=== PATIENT | female | born 1940 | race Caucasian/White ===

== ENCOUNTER 2019-08-17 09:13 | Outpatient (CLI) | payer MEDICARE, SELFPAY ==
[2019-08-17 10:09] LABS: Alanine Aminotransferase 37 U/L (4-35); Albumin Level 4.9 g/dL (3.5-5.1); Alkaline Phosphatase 100 U/L (38-126); Aspartate Amino Transferase 54 U/L (14-36); Bilirubin,Total 0.6 mg/dL (0.2-1.3); Blood Urea Nitrogen 17 mg/dL (7-17); Calcium 9.7 mg/dL (8.4-10.2); Carbon Dioxide 29 mmol/L (22-30); Chloride 100 mmol/L (98-107); Cholesterol 158 mg/dL (0-200); Estimated Glomerular Filt Rate > 60; Glucose 141 mg/dL (65-105); HDL Direct 71 mg/dL; Potassium 4.4 mmol/L (3.4-5.0); Sodium 139 mmol/L (137-145); Triglycerides 102 mg/dL (<150)
[2019-08-17 10:19] LABS: LDL Cholesterol Direct 68 mg/dL
[2019-08-17 10:32] LABS: Hemoglobin A1C 6.6 % (<5.7)
[2019-08-17 10:35] LABS: Vitamin D 25 Hydroxy 34.9 ng/mL
[2019-08-17 10:39] LABS: Creatinine Urine 231.5 mg/dL
[2019-08-17 10:44] LABS: Microalbumin Urine Random 46.2 mg/L (0-16.7)
== END 2019-08-17 09:14 | disposition home or self-care (01) ==
PROVIDERS: PCP Internal Medicine; Visit Provider Nurse Practitioner
DX: E11.9 Type 2 diabetes mellitus without complications (principal); E78.2 Mixed hyperlipidemia; E55.9 Vitamin D deficiency, unspecified
CPT/HCPCS: 36415; 80053; 80061; 82043; 82248; 82306; 83036

== ENCOUNTER 2019-08-18 09:49 | Outpatient (CLI) | payer MEDICARE, SELFPAY ==
[2019-08-21 22:23] LABS: Albumin 4.1 g/dL (3.8-4.8); Alpha 1 Globulin 0.3 g/dL (0.2-0.3); Beta 1 Globulin 0.6 g/dL (0.4-0.6); Gamma Globulin 0.9 g/dL (0.8-1.7); Protein, Total 7.4 g/dL (6.1-8.1)
== END 2019-08-18 09:50 | disposition home or self-care (01) ==
PROVIDERS: PCP Internal Medicine; Visit Provider Internal Medicine
DX: E88.09 Other disorders of plasma-protein metabolism, not elsewhere classified (principal)
CPT/HCPCS: 36415; 84155; 84165

== ENCOUNTER 2019-08-24 12:53 | Outpatient (CLI) | payer MEDICARE, SELFPAY ==
--- NOTE | ~2019-08-24 | CT_ITS ---
EXAMINATION: CT abdomen wo con DATE: 08/24/2019 13:13 INDICATION: Ventral hernia TECHNIQUE: Computed tomography (CT) of the abdomen was performed without intravenous contrast. Automa dunia exposure control and iterative reconstruction technique were employed. Exam dose: 406.49 mGy-cm total exam DLP. COMPARISON: 09/29/2016 CT abdomen and pelvis with IV contrast material FINDINGS: There is discoid atelectasis or scarring in the lower lung zones, primarily involving the r ight lower lobe. Normal heart size. No pericardial or pleural effusion. Small sliding hiatal hernia. Status post cholecystectomy. Approximately 6.5 mm right hepatic dome cyst. Approximately 1.7 cm lateral segment left hepatic cyst. Approximately 11 mm caudate process cyst. A few scattered much smaller likely hepatic cysts are pres ent. No bile duct or pancreatic duct dilatation. No pancreatic mass lesion or pancreatic duct dilatation i s evident. Multiple calcified small granulomas. No splenomegaly. Normal morphology of the adrenal glands. No renal mass lesion is evident on this limited noncontrast examination. Abdominal aortic calcification; no evidence of abdominal aortic aneurysm. No intraperitoneal or retro peritoneal mass lesion or adenopathy or ascites. Normal appendix. Diverticulosis of left and right colon. No bowel obstruction or intraperitoneal free air. There is a subtle supraumbilical small fat-containing ventral abdominal hernia near midline, measurin g approximately 6.6 x 14.5 mm. Small fat-containing umbilical hernia. There is levoscoliosis and multilevel degenerative disc disease of the lumbar spine. IMPRESSION: Small midline supraumbilical ventral fat-containing abdominal wall hernia Small fat-containing umbilical hernia Hepatic cysts Status post cholecystectomy Small sliding hiatal hernia Diverticulosis of the colon Reviewed, dictated and finalized at Location [facility]. Reviewed, dictated and finalized at location B.
== END 2019-08-24 12:54 | disposition home or self-care (01) ==
LOC: ANHIMG 12:56
PROVIDERS: PCP Internal Medicine; Visit Provider Internal Medicine
DX: K43.9 Ventral hernia without obstruction or gangrene (principal); K44.9 Diaphragmatic hernia without obstruction or gangrene; Z90.49 Acquired absence of other specified parts of digestive tract; K57.30 Diverticulosis of large intestine without perforation or abscess without bleeding; K76.89 Other specified diseases of liver
CPT/HCPCS: 74150

== ENCOUNTER 2020-01-29 08:33 | Emergency (ER) | payer MEDICARE, SELFPAY ==
--- NOTE | ~2020-01-29 | CT_ITS ---
EXAMINATION: CT abdomen pelvis w con INDICATION: Lower abdominal pain TECHNIQUE: Computed tomographic images of the abdomen and pelvis were obtained after the administrati on of 100 cc of Omnipaque 350 intravenous contrast. The dose-length product (DLP) was 561.21 mGy-cm. Automated exposure control and iterative reconstruction technique were employed. COMPARISON: 08/24/2019, 09/29/2016 FINDINGS: Minimal dependent atelectasis is present in the lung bases. The heart size is normal. There appear to be surgical changes of fundoplication at the gastroesophageal junction. The gallbladder is surgically absent. Cysts of the liver measure up to 1.8 cm in the left hepatic lobe. Punctate calcif ications in an otherwise normal spleen likely represent healed granulomatous disease. The pancreas an d adrenal glands are normal. There is mild right hydronephrosis which appears to be related to a UPJ stricture. There is calcified atherosclerosis of the aorta and many of the other arteries. No patholo gically enlarged abdominal or pelvic lymph nodes are identified. Colonic diverticulosis is present. T here is wall thickening in the sigmoid colon with adjacent edematous stranding of the perisigmoid fat . The appendix is normal. There is no free intraperitoneal gas or evidence of bowel obstruction. Ther e is severe lumbar spondylosis. IMPRESSION: 1. Findings consistent with uncomplicated sigmoid diverticulitis. 2. Mild right hydronephrosis possibly related to UPJ stricture. Reviewed, dictated and finalized at location A.
[2020-01-29 08:38] VITALS: BP 151/81; PULSE 93; RESP 18; TEMP 36.6; O2SAT 96
[2020-01-29 09:09] LABS: Basophils Absolute Auto 0.1 K/mm3 (0.0-0.1); Basophils Percent Auto 0.6 % (0.2-1.2); Eosinophils Absolute Auto 0.2 K/mm3 (0-0.3); Eosinophils Percent Auto 1.6 % (0-4.4); Hematocrit 41.6 % (37.0-47.0); Hemoglobin 13.7 g/dL (12.0-15.0); Immature Granulocyte Absolute 0.04 K/mm3 (0.00-0.031); Immature Granulocyte Percent A 0.3 % (0-0.5); Lymphocytes Percent Auto 22.9 % (18.3-44.2); Mean Corpuscular HGB Conc 32.9 g/dl (32-36); Mean Corpuscular Volume 94.1 fl (80-100); Mean Platelet Volume 9.7 fl (7.4-10.4); Monocytes Percent Auto 7.3 % (2.6-8.5); Neutrophils Absolute Auto 9.4 K/mm3 (1.3-6.7); Neutrophils Percent Auto 67.3 % (45.5-73.1); Platelet Count Result 224 k/mm3 (150-375); Red Blood Count 4.42 M/mm3 (4.2-5.4); Red Cell Distribution Width 13.2 % (11.5-14.5)
--- NOTE | 2020-01-29 09:09 | ED.ABDPAIN ---
HPI - Abdominal Pain General Chief Complaint: Abdominal Pain Stated Complaint: abdominal pain Time Seen by Provider: 01/29/20 08:52 History of Present Illness HPI narrative: LLQ pain for the past 2-3 days. Moderate in severity. Worse after eating. Associated with nausea. Chronic diarrhea. Symptoms are the same as previous episodes of diverticulitis. No fever, CP, SOB. Related Data Allergies Allergy/AdvReac Type Severity Reaction Status Date / Time ADRIEN Inhibitors Allergy Unknown Unknown Verified 01/29/20 09:06 cefuroxime Allergy Unknown Muscle Pain Verified 01/29/20 09:06 levofloxacin Allergy Unknown Muscle Pain Verified 01/29/20 09:06 succinylcholine Allergy Unknown Unknown Verified 01/29/20 09:06 Review of Systems Review of Systems: All systems reviewed & are unremarkable except as noted in HPI and below Constitutional: Constitutional: Denies fever(s) Cardiovascular: Cardiovascular: Denies chest pain Respiratory: Respiratory: Denies dyspnea Gastrointestinal: Gastrointestinal: Reports abdominal pain, Reports diarrhea, Reports nausea and Denies vomiting Genitourinary: Genitourinary: Denies hematuria, Reports nocturia and Denies dysuria Neurologic: Denies numbness and Denies weakness [facility] Past Medical History Medical History Essential (primary) hypertension Type 2 diabetes mellitus without complication, without long-term current use of insulin Family History Family History Father Family history of gout Acute myocardial infarction Family history of cardiovascular disease, Onset Age: 74 Mother Family history of osteoporosis Hypertension Cerebrovascular accident Family history of diabetes mellitus in first degree relative Sibling Family history of diabetes mellitus in first degree relative Family history of heart disease in male family member before age 55 Family history of cardiovascular disease, Onset Age: 54 Other Diabetes mellitus Family history of coronary artery disease Family history of malignant neoplasm Social History Social History Smoking status: Never smoker Second hand tobacco smoke exposure: No Alcohol intake: never Gender identity (if verbalized by the patient): Female Exam Const: General: healthy appearing, no acute distress and alert Orientation/consciousness: patient oriented x3 HENMT: Head: normal to inspection Neck: Neck: normal visual inspection and no lymphadenopathy Chest: Chest palpation & inspection: no tenderness Resp: Effort & Inspection: normal respiratory effort Auscultation: clear to auscultation bilaterally, no rales, no rhonchi and no wheezes Cardio: Jugular venous distension: no JVD Rate: regular rate Rhythm: regular rhythm Heart sounds: no murmurs GI: Inspection: non-distended GI Palp: Yes Soft to palpation, Yes Tenderness to palpation present (GI) (LLQ ), No Guarding due to palpation present (GI) and No Rebound tenderness present Skin: General skin exam: normal color Neuro: General: patient oriented x3 and moves all extremities Speech: normal speech Extrem: General: no edema Psych: Appearance: well kempt Affect: normal affect Course Vital Signs Vital signs: Vital Signs Temperature 36.6 C 01/29/20 08:38 Pulse Rate 93 01/29/20 08:38 Respiratory Rate 18 01/29/20 08:38 Blood Pressure 151/81 H 01/29/20 08:38 Pulse Oximetry 96 01/29/20 08:38 Temperature 36.6 C 01/29/20 08:38 Pulse Rate 93 01/29/20 08:38 Respiratory Rate 18 01/29/20 08:38 Blood Pressure 151/81 H 01/29/20 08:38 Pulse Oximetry 96 01/29/20 08:38 MDM - Abdominal Pain MDM Narrative Medical decision making narrative: uncomplicated diveticulitis on CT. Will treat as outpatient with PO antibiotics. Medical Records Attestation: I reviewed the patient's medical records
[2020-01-29 09:12] LABS: Add Urine Microscopic? YES; Appearance Urine Clear (Clear); Bilirubin Urine Negative (Negative); Blood Urine Negative (Negative); Color Urine Straw (Yellow); Glucose Urine UA Negative (Negative); Ketones Urine Negative (Negative); Leukocyte Esterase Ur Trace LEU/UL (Negative); Mucus Urine Rare /lpf; Nitrate Urine Negative (Negative); Protein Urine Negative (Negative); RBC Urine 0-2 /hpf (0-2); Squamous Epithelial Cell Urine Rare /hpf (Few); Urobilinogen Urine Negative mg/dL (<2.0); WBC Urine 0-3 /hpf
[2020-01-29 09:21] LABS: Alanine Aminotransferase 38 U/L (4-35); Albumin Level 4.7 g/dL (3.5-5.1); Alkaline Phosphatase 94 U/L (38-126); Anion Gap 10 mmol/L (8-16); Aspartate Amino Transferase 46 U/L (14-36); Bilirubin,Total 0.7 mg/dL (0.2-1.3); Blood Urea Nitrogen 12 mg/dL (7-17); Calcium 9.6 mg/dL (8.4-10.2); Carbon Dioxide 27 mmol/L (22-30); Chloride 100 mmol/L (98-107); Estimated CRCL calculation 51 ml/min; Estimated Glomerular Filt Rate > 60; Glucose 142 mg/dL (65-105); Lipase 179 U/L (23-300); Potassium 4.1 mmol/L (3.4-5.0); Sodium 137 mmol/L (137-145)
[2020-01-29] MEDS: metroNIDAZOLE 250 MG TABLET 500 MG PO (11:27)
[2020-01-29] MEDS: CIPROFLOXACIN 500 MG TAB PO (11:27)
--- NOTE | 2020-01-29 11:38 | PHAR ---
lEVAQUIN ALLERGY LISTED WITH RXN OF MUSCLE PAIN. CIPRO ORDERED AND ADMINISTERED IN ER BEFORE PHARMACY REVIEW. NOTIFIED JOSE WRIGHT THAT THESE ARE IN SAME CLASS. JOSE WRIGHT STATES PATIENT TAKES CIPRO FOR DIVERTICULITIS WITHOUT ANY COMPLAINTS.
== END 2020-01-29 11:54 | disposition home or self-care (01) ==
PROVIDERS: Emergency Provider Emergency Medicine; PCP Internal Medicine
DX: K57.32 Diverticulitis of large intestine without perforation or abscess without bleeding (principal); I10 Essential (primary) hypertension; E11.9 Type 2 diabetes mellitus without complications; N13.30 Unspecified hydronephrosis
CPT/HCPCS: 36415; 74177; 80053; 81001; 83690; 85025; 99284; A9270; Q9967

== ENCOUNTER → 2020-06-14 12:10 | Outpatient (CLI) | payer MEDICARE, SELFPAY ==
--- NOTE | ~2020-06-14 | DEXA_ITS ---
Bone Density Report Name: Amina Rodriguez Age: 79 Sex: Female Ethnicity: White Date of : 1940 Indication: postmenopausal; screening for osteoporosis; prior fracture; hysterectomy; Referring Provider: LUZ SINGH D.O. Study: Bone densitometry was performed. Exam Date: June 14, 2020 Accession number: [id number] Bone Density: Region BMD T-score Z-score Classification AP Spine (L1, L2) 0.912 -0.6 1.9 Normal Femoral Neck (Left) 0.590 -2.3 0.0 Osteopenia Total Hip (Left) 0.830 -0.9 1.2 Normal Femoral Neck (Right) 0.689 -1.4 0.9 Osteopenia Total Hip (Right) 0.836 -0.9 1.2 Normal Total Hip Mean 0.833 -0.9 1.2 Normal World Health Organization criteria for BMD impression classify patients as: Normal (T-score at or above -1.0), Osteopenia (T-score between -1.0 and -2.5), or Osteoporosis (T-score at or below -2.5). 10-year Fracture Risk(1): Major Osteoporotic Fracture 24% Hip Fracture 7.0% Reported Risk Factors: [place] (), Neck BMD=0.590, BMI=28.6, previous fracture (1) FRAX(R) Version 3.08. Fracture probability calculated for an untreated patient. Fracture probability may be lower if the patient has received treatment. Previous Exams: Region Exam Age BMD T-score BMD Change BMD Change Date g/cm2 vs Baseline vs Previous AP Spine(L1, L2) 06/14/2020 79 0.912 -0.6 0.021 -0.022 04/28/2017 76 0.934 -0.4 0.043* -0.022 04/26/2015 74 0.956 -0.2 0.065* -0.014 12/17/2012 72 0.970 -0.1 0.079* 0.014 12/05/2010 69 0.956 -0.2 0.065* 0.069* 11/16/2008 67 0.887 -0.8 -0.004 -0.004 11/11/2005 64 0.891 -0.8 Total Hip(Left) 06/14/2020 79 0.830 -0.9 -0.076* -0.040* 04/28/2017 76 0.870 -0.6 -0.036* 0.015 04/26/2015 74 0.855 -0.7 -0.051* 0.038* 12/17/2012 72 0.817 -1.0 -0.089* 0.040* 12/05/2010 69 0.777 -1.4 -0.129* 0.030* 11/16/2008 67 0.747 -1.6 -0.159* -0.159* 11/11/2005 64 0.906 -0.3 Total Hip(Right) 06/14/2020 79 0.836 -0.9 -0.027* -0.012 04/28/2017 76 0.848 -0.8 -0.016 0.003 04/26/2015 74 0.845 -0.8 -0.019 0.026 12/17/2012 72 0.819 -1.0 -0.045* 0.030* 12/05/2010 69 0.788 -1.3 -0.076* 0.050* 11/16/2008 67 0.738 -1.7 -0.126* -0.126* 11/11/2005 64 0.864 -0.6
--- NOTE | ~2020-06-14 | MM_ITS ---
EXAMINATION: MM screening [facility] HISTORY: Screening mammogram TECHNIQUE: Craniocaudal and mediolateral oblique 3-D tomosynthesis images were obtained and synthetic 2-D images were generated. CAD analysis was submitted and interpreted. COMPARISON: 04/27/2019, 04/12/2019, 02/05/2018, 02/03/2017 BREAST PARENCHYMAL COMPOSITION: There are scattered areas of fibroglandular density. FINDINGS: Stable bilateral asymmetries in the breasts are considered benign given the lack of interva l change. There is no evidence of suspicious mass, calcification, or architectural distortion to sugg est malignancy in either breast. There has been no suspicious interval change. IMPRESSION: 1. No mammographic evidence of malignancy. 2. Recommend routine screening mammography in one year. BI-RADS Category 2: Benign finding(s). Reviewed, dictated and finalized at location A. NICAL PLANNER
== END ==
PROVIDERS: PCP Internal Medicine; Visit Provider Internal Medicine
DX: Z12.31 Encounter for screening mammogram for malignant neoplasm of breast (principal); M81.0 Age-related osteoporosis without current pathological fracture; M85.852 Other specified disorders of bone density and structure, left thigh; M85.851 Other specified disorders of bone density and structure, right thigh
CPT/HCPCS: 77063; 77067; 77080

== ENCOUNTER → 2020-10-02 12:12 | Outpatient (CLI) | payer MEDICARE, SELFPAY ==
--- NOTE | ~2020-10-02 | XR_ITS ---
XR hip RT min 2V 10/02/2020 12:39 Indication: Right hip pain Procedure: 2 views right hip Comparison: No prior studies for comparison. Findings: No fracture, subluxation or dislocation. No significant joint space narrowing. Normal property insurance claims examiner alization. No focal soft tissue abnormality. Impression: 1: No significant bone or joint abnormality. Reviewed, dictated and finalized at location B. Impression: 1: No significant bone or joint abnormality.
--- NOTE | ~2020-10-02 | XR_ITS ---
EXAMINATION: XR lumbar spine 2-3V, XR sacrum coccyx min 2V DATE: 10/02/2020 12:38 INDICATION: Low back pain TECHNIQUE: 1. Anteroposterior and lateral views of the lumbar spine, and cone-down lateral view of the lumbosacr al junction were obtained. 2. Anteroposterior, angled anteroposterior and lateral views of the sacrum and coccyx were obtained. COMPARISON: CT dated 09/29/2016 FINDINGS: 22 degree lumbar levoscoliosis measured between L1 and L4. Lumbar vertebral body heights are normal. Severe disc height loss with right side predominance at L3-L4 and L4-L5 and with left side predominan ce at L5-S1. Moderate disc height loss at T12-L1 through L2-L3. Multilevel moderate to severe lumbar facet osteoarthritis. Mild bilateral sacroiliac osteoarthritis. Sacral arches are intact. No evident fractures. Cholecystectomy clips in right upper quadrant. Multiple splenic calcification consistent w ith old granulomatous disease. IMPRESSION: 1. 22 degrees lumbar levoscoliosis with moderate upper and severe mid to lower lumbar spondylosis. 2. Mild bilateral sacroiliac osteoarthritis. Reviewed, dictated and finalized at location A. IMPRESSION: 1. 22 degrees lumbar levoscoliosis with moderate upper and severe mid to lower lumbar spondylosis. 2. Mild bilateral sacroiliac osteoarthritis.
--- NOTE | ~2020-10-02 | XR_ITS ---
XR shoulder RT min 2V 10/02/2020 12:38 Indication: Right shoulder pain Procedure: 4 views right shoulder Comparison: No prior studies for comparison. Findings: No acute fracture, subluxation or dislocation. No significant soft tissue abnormality. No r adiopaque foreign bodies. There is normal mineralization. No significant joint space narrowing. Mild degenerative changes of the acromioclavicular and glenohumeral joint. Impression: 1: Mild polyarticular osteoarthritis. Reviewed, dictated and finalized at location B. Impression: 1: Mild polyarticular osteoarthritis.
== END ==
PROVIDERS: PCP Internal Medicine; Visit Provider Internal Medicine
DX: M41.9 Scoliosis, unspecified (principal); M47.898 Other spondylosis, sacral and sacrococcygeal region; M19.011 Primary osteoarthritis, right shoulder; M25.551 Pain in right hip
CPT/HCPCS: 72100; 72220; 73030; 73502

== ENCOUNTER 2021-02-20 07:36 | Outpatient (CLI) | payer MEDICARE, SELFPAY ==
[2021-02-20 08:24] LABS: Alanine Aminotransferase 26 U/L (4-35); Albumin Level 4.5 g/dL (3.5-5.1); Alkaline Phosphatase 83 U/L (38-126); Anion Gap 10 mmol/L (8-16); Aspartate Amino Transferase 40 U/L (14-36); Bilirubin,Total 0.4 mg/dL (0.2-1.3); Blood Urea Nitrogen 17 mg/dL (7-17); Calcium 9.8 mg/dL (8.4-10.2); Carbon Dioxide 29 mmol/L (22-30); Chloride 99 mmol/L (98-107); Cholesterol 146 mg/dL (0-200); Estimated Glomerular Filt Rate 60; Glucose 136 mg/dL (65-110); HDL Direct 69 mg/dL; Potassium 4.2 mmol/L (3.4-5.0); Sodium 138 mmol/L (137-145); Triglycerides 99 mg/dL (<150)
[2021-02-20 08:29] LABS: Hemoglobin A1C 6.4 % (<5.7)
[2021-02-20 08:35] LABS: LDL Cholesterol Direct 55 mg/dL
[2021-02-20 08:56] LABS: Creatinine Urine 42.7 mg/dL
[2021-02-20 09:26] LABS: MALB Creatinine Ratio < 14.1 mg/g (0-30); Microalbumin Urine Random < 6.0 mg/L (0-16.7)
== END 2021-02-20 07:37 | disposition home or self-care (01) ==
LOC: ANHLAB 07:41
PROVIDERS: PCP Internal Medicine; Visit Provider Nurse Practitioner
DX: E11.9 Type 2 diabetes mellitus without complications (principal); I10 Essential (primary) hypertension; E78.5 Hyperlipidemia, unspecified
CPT/HCPCS: 36415; 80053; 80061; 82043; 83036

== ENCOUNTER 2021-05-14 10:02 | Outpatient (CLI) | payer MEDICARE, SELFPAY ==
--- NOTE | ~2021-05-14 | XR_ITS ---
EXAMINATION: XR sacrum coccyx min 2V DATE: 05/14/2021 10:22 INDICATION: Tailbone pain post fall TECHNIQUE: AP, angled AP and lateral views of the sacrum and coccyx were obtained. COMPARISON: 10/02/2020 FINDINGS: Partially visualized lumbar levorotoscoliosis with severe spondylosis. Normal alignment and joint spa ce at the bilateral hips. Mild bilateral sacroiliac osteoarthritis. Sacral arches are intact. A few p hleboliths in the pelvis. Heterotopic ossifications at the right buttocks. IMPRESSION: 1. Mild bilateral sacroiliac osteoarthritis. No acute osseous abnormality. 2. Mild lumbar levoscoliosis with severe spondylosis. Reviewed, dictated and finalized at location B. ENTRY TECHNICIAN
== END 2021-05-14 10:03 | disposition home or self-care (01) ==
PROVIDERS: PCP Internal Medicine; Visit Provider Internal Medicine
DX: M53.3 Sacrococcygeal disorders, not elsewhere classified (principal); M47.896 Other spondylosis, lumbar region
CPT/HCPCS: 72220

== ENCOUNTER 2021-06-29 10:42 | Outpatient (CLI) | payer MEDICARE, SELFPAY ==
--- NOTE | ~2021-06-29 | MR_ITS ---
EXAMINATION: MR pelvis wo con DATE: 06/29/2021 11:38 INDICATION: Nodule with left buttock pain post fall 6 weeks prior TECHNIQUE: Magnetic resonance imaging (MRI) of the pelvis was performed without intravenous contrast. Sequences included axial, sagittal and coronal T1-weighted FSE, axial and coronal T2-weighted FS FSE and sagittal PD-weighted FS FSE. COMPARISON: Sacrum and coccyx radiograph dated 05/14/2021 FINDINGS: There are bands of marrow edema surrounding a linear low signal intensity nondisplaced fracture lines extending across the submitted multilevel of S4 and vertically along the left sacral ala between the neural foramina and the left sacroiliac joint. Additional small amount of marrow edema along an inco mplete low signal intensity fracture line at the anteroinferior aspect of the right sacral ala. Other lowe normal marrow signal. Lumbar levoscoliosis with severe spondylosis. Bilateral hip joint spaces a re unremarkable with no joint effusions. Bladder is unremarkable. Sigmoid diverticulosis without samia cent inflammatory change to suggest diverticulitis. No pathologically enlarged pelvic or inguinal lym phadenopathy. IMPRESSION: 1. Nondisplaced sacral fractures extending horizontally at the level of S4, vertically at the left sa cral ala and partially at the anteroinferior right sacral ala. 2. Lumbar levoscoliosis with severe spondylosis. Reviewed, dictated and finalized at location A. OR TECHNICAL SUPPORT ENGINEER IMPRESSION: 1. Nondisplaced sacral fractures extending horizontally at the level of S4, thuy tically at the left sacral ala and partially at the anteroinferior right sacral ala. 2. Lumbar levoscoliosis with severe spondylosis.
== END 2021-06-29 10:43 | disposition home or self-care (01) ==
LOC: ANHIMG 10:44
PROVIDERS: PCP Internal Medicine; Visit Provider Internal Medicine
DX: M79.18 Myalgia, other site (principal); M47.896 Other spondylosis, lumbar region
CPT/HCPCS: 72195

== ENCOUNTER 2021-08-28 07:55 | Outpatient (CLI) | payer MEDICARE, SELFPAY ==
[2021-08-28 08:28] LABS: Alanine Aminotransferase 28 U/L (4-35); Albumin Level 4.5 g/dL (3.5-5.1); Alkaline Phosphatase 95 U/L (38-126); Anion Gap 6 mmol/L (8-16); Aspartate Amino Transferase 38 U/L (14-36); Bilirubin,Total 0.7 mg/dL (0.2-1.3); Blood Urea Nitrogen 16 mg/dL (7-17); Calcium 9.2 mg/dL (8.4-10.2); Carbon Dioxide 31 mmol/L (22-30); Chloride 102 mmol/L (98-107); Cholesterol 158 mg/dL (0-200); Estimated Glomerular Filt Rate 60; Glucose 142 mg/dL (65-110); HDL Direct 65 mg/dL; Potassium 4.3 mmol/L (3.4-5.0); Sodium 139 mmol/L (137-145); Triglycerides 93 mg/dL (<150)
[2021-08-28 08:33] LABS: Hemoglobin A1C 6.1 % (<5.7)
[2021-08-28 08:39] LABS: LDL Cholesterol Direct 58 mg/dL
[2021-08-28 09:18] LABS: Vitamin D 25 Hydroxy 38.7 ng/mL
== END 2021-08-28 07:56 | disposition home or self-care (01) ==
PROVIDERS: PCP Internal Medicine; Visit Provider Nurse Practitioner
DX: E78.5 Hyperlipidemia, unspecified (principal); E11.9 Type 2 diabetes mellitus without complications; E55.9 Vitamin D deficiency, unspecified
CPT/HCPCS: 36415; 80053; 80061; 82306; 83036

== ENCOUNTER → 2021-10-16 12:16 | Outpatient (CLI) | payer MEDICARE, SELFPAY ==
--- NOTE | ~2021-10-16 | MM_ITS ---
EXAMINATION: MM screening [facility] HISTORY: Screening TECHNIQUE: Craniocaudal and mediolateral oblique 3-D tomosynthesis images were obtained and synthetic 2-D images were generated. CAD analysis was submitted and interpreted. COMPARISON: Comparison to multiple prior studies sequentially, with oldest reviewed study dated 01/31. BREAST PARENCHYMAL COMPOSITION: Breast composed of scattered areas of fibroglandular density FINDINGS: There is no evidence of suspicious mass, calcification, or architectural distortion to sugg est malignancy in either breast. There has been no suspicious interval change. IMPRESSION: 1. No mammographic evidence of malignancy. 2. Recommend routine screening mammography in one year. BI-RADS Category 1: Negative Reviewed, dictated and finalized at location A.
== END ==
PROVIDERS: PCP Internal Medicine; Visit Provider Internal Medicine
DX: Z12.31 Encounter for screening mammogram for malignant neoplasm of breast (principal)
CPT/HCPCS: 77063; 77067

== ENCOUNTER 2022-03-06 08:11 | Outpatient (CLI) | payer MEDICARE, SELFPAY ==
[2022-03-06 08:59] LABS: Alanine Aminotransferase 36 U/L (6-35); Albumin Level 4.5 g/dL (3.5-5.1); Alkaline Phosphatase 87 U/L (38-126); Anion Gap 12 mmol/L (8-16); Aspartate Amino Transferase 49 U/L (14-36); Bilirubin,Total 0.6 mg/dL (0.2-1.3); Blood Urea Nitrogen 23 mg/dL (7-17); Calcium 9.3 mg/dL (8.4-10.2); Carbon Dioxide 28 mmol/L (22-30); Chloride 99 mmol/L (98-107); Cholesterol 145 mg/dL (0-200); Estimated Glomerular Filt Rate 60; Glucose 146 mg/dL (65-110); HDL Direct 59 mg/dL; Potassium 3.9 mmol/L (3.4-5.0); Sodium 139 mmol/L (137-145); Triglycerides 77 mg/dL (<150)
[2022-03-06 09:10] LABS: LDL Cholesterol Direct 62 mg/dL
[2022-03-06 09:50] LABS: Vitamin D 25 Hydroxy 42.6 ng/mL
[2022-03-06 10:19] LABS: Hemoglobin A1C 6.5 % (<5.7)
== END 2022-03-06 08:12 | disposition home or self-care (01) ==
PROVIDERS: PCP Internal Medicine; Visit Provider Internal Medicine
DX: E78.5 Hyperlipidemia, unspecified (principal); E11.9 Type 2 diabetes mellitus without complications; E55.9 Vitamin D deficiency, unspecified; Z51.81 Encounter for therapeutic drug level monitoring; I10 Essential (primary) hypertension
CPT/HCPCS: 36415; 80053; 80061; 82306; 83036

== ENCOUNTER 2022-09-16 08:49 | Outpatient (CLI) | payer MEDICARE, SELFPAY ==
[2022-09-16 09:53] LABS: Hemoglobin A1C 6.4 % (<5.7)
== END 2022-09-16 08:50 | disposition home or self-care (01) ==
PROVIDERS: PCP Internal Medicine; Visit Provider Nurse Practitioner Family
DX: E11.9 Type 2 diabetes mellitus without complications (principal); I10 Essential (primary) hypertension; E78.2 Mixed hyperlipidemia
CPT/HCPCS: 36415; 83036

== ENCOUNTER 2022-09-18 08:07 | Outpatient (CLI) | payer MEDICARE, SELFPAY ==
[2022-09-18 08:51] LABS: Alanine Aminotransferase 27 U/L (6-35); Albumin Level 4.7 g/dL (3.5-5.1); Alkaline Phosphatase 77 U/L (38-126); Anion Gap 7 mmol/L (8-16); Aspartate Amino Transferase 38 U/L (14-36); Bilirubin,Total 0.7 mg/dL (0.2-1.3); Blood Urea Nitrogen 19 mg/dL (7-17); Calcium 9.4 mg/dL (8.4-10.2); Carbon Dioxide 31 mmol/L (22-30); Chloride 100 mmol/L (98-107); Cholesterol 138 mg/dL (0-200); Estimated Glomerular Filt Rate > 60; Glucose 136 mg/dL (65-110); HDL Direct 67 mg/dL; Potassium 4.4 mmol/L (3.4-5.0); Sodium 138 mmol/L (137-145); Triglycerides 94 mg/dL (<150)
[2022-09-18 09:02] LABS: LDL Cholesterol Direct 53 mg/dL
== END 2022-09-18 08:08 | disposition home or self-care (01) ==
PROVIDERS: PCP Internal Medicine; Visit Provider Nurse Practitioner Family
DX: I10 Essential (primary) hypertension (principal); E78.2 Mixed hyperlipidemia
CPT/HCPCS: 36415; 80053; 80061

== ENCOUNTER → 2022-10-16 10:50 | Outpatient (CLI) | payer MEDICARE, SELFPAY ==
--- NOTE | ~2022-10-16 | DEXA_ITS ---
Bone Density Report Name: BETH HAYS Age: 81 Sex: Female Ethnicity: White Date of : 1940 Indication: monitoring treatment; height loss; prior fracture; hysterectomy; postmenopausal Referring Provider: SORAIDA TOBIN Study: Bone densitometry was performed. Exam Date: October 16, 2022 Accession number: [id number] Bone Density: Region BMD T-score Z-score Classification AP Spine (L1, L2) 0.952 -0.2 2.4 Normal Femoral Neck (Left) 0.610 -2.1 0.3 Osteopenia Total Hip (Left) 0.766 -1.4 0.8 Osteopenia Femoral Neck (Right) 0.700 -1.3 1.1 Osteopenia Total Hip (Right) 0.837 -0.9 1.4 Normal Total Hip Mean 0.802 -1.2 1.1 Osteopenia World Health Organization criteria for BMD impression classify patients as: Normal (T-score at or above -1.0), Osteopenia (T-score between -1.0 and -2.5), or Osteoporosis (T-score at or below -2.5). 10-year Fracture Risk: FRAX not reported because: Treated for osteoporosis Previous Exams: Region Exam Age BMD T-score BMD Change BMD Change Date g/cm2 vs Baseline vs Previous AP Spine(L1, L2) 10/16/2022 81 0.952 -0.2 0.061* 0.040* 06/14/2020 79 0.912 -0.6 0.021 -0.022 04/28/2017 76 0.934 -0.4 0.043* -0.022 04/26/2015 74 0.956 -0.2 0.065* -0.014 12/17/2012 72 0.970 -0.1 0.079* 0.014 12/05/2010 69 0.956 -0.2 0.065* 0.069* 11/16/2008 67 0.887 -0.8 -0.004 -0.004 11/11/2005 64 0.891 -0.8 Total Hip(Left) 10/16/2022 81 0.766 -1.4 -0.140* -0.064* 06/14/2020 79 0.830 -0.9 -0.076* -0.040* 04/28/2017 76 0.870 -0.6 -0.036* 0.015 04/26/2015 74 0.855 -0.7 -0.051* 0.038* 12/17/2012 72 0.817 -1.0 -0.089* 0.040* 12/05/2010 69 0.777 -1.4 -0.129* 0.030* 11/16/2008 67 0.747 -1.6 -0.159* -0.159* 11/11/2005 64 0.906 -0.3 Total Hip(Right) 10/16/2022 81 0.837 -0.9 -0.027 0.001 06/14/2020 79 0.836 -0.9 -0.027* -0.012 04/28/2017 76 0.848 -0.8 -0.016 0.003 04/26/2015 74 0.845 -0.8 -0.019 0.026 12/17/2012 72 0.819 -1.0 -0.045* 0.030* 12/05/2010 69 0.788 -1.3 -0.076* 0.050* 11/16/2008 67 0.738 -1.7 -0.126* -0.126* 11/11/2005 64 0.864 -0.6 *Denotes significance at 95% confidence level, LSC for AP Spi
== END ==
PROVIDERS: PCP Nurse Practitioner Family; Visit Provider Nurse Practitioner Family
DX: M81.0 Age-related osteoporosis without current pathological fracture (principal); M85.852 Other specified disorders of bone density and structure, left thigh; M85.851 Other specified disorders of bone density and structure, right thigh
CPT/HCPCS: 77080

== ENCOUNTER 2022-10-25 08:23 | Outpatient (CLI) | payer MEDICARE, SELFPAY ==
--- NOTE | ~2022-10-25 | MR_ITS ---
MRI of the left knee Clinical history: Pain Technique: Coronal proton density and proton density-weighted images, sagittal proton-density and T2 fat-sat images, and axial proton-density fat-saturated images were acquired. Findings: Anterior and posterior cruciate ligaments are intact. Medial collateral ligament and the la teral collateral ligament complex are intact. Popliteus tendon is intact. There is complex, predominantly horizontal tearing of the anterior horn of the lateral meniscus. Ther e is complex tearing of the posterior horn and body of the medial meniscus. There is extensive high-grade chondromalacia the medial compartment, especially towards the medial hesham int line. There is mild to moderate chondromalacia of the lateral compartment towards the lateral bob nt line. Articular cartilage in the patellofemoral compartment is relatively well-preserved. There ar e small to moderate medial and lateral compartment osteophytes. There is minimal patellar spurring. Extensor mechanism is intact. Small joint effusion is present. There are small loose bodies in the po pliteus tendon sheath (coronal image 20). There is also fluid distention of semimembranosus bursa, co nsistent with bursitis. Impression: Complex tearing of the posterior horn and body of medial meniscus. Complex, predominantly horizontal tearing of the anterior horn of the lateral meniscus. Moderate medial compartment degenerative change. Mild degenerative change of the lateral and patellof emoral compartment. Small loose bodies in the popliteus tendon sheath with underlying small joint effusion. Semimembranosus bursitis. Reviewed, dictated and finalized at [facility]. Impression: Complex tearing of the posterior horn and body of medial meniscus. Complex, predominantly horizontal tearing of the anterior horn of the lateral m eniscus. Moderate medial compartment degenerative change. Mild degenerative change of th e lateral and patellofemoral compartment. Small loose bodies in the popliteus tendon sheath with underlying small joint e ffusion. Semimembranosus bursitis.
== END 2022-10-25 08:24 | disposition home or self-care (01) ==
PROVIDERS: PCP Family Medicine; Visit Provider Nurse Practitioner Family
DX: S83.232A Complex tear of medial meniscus, current injury, left knee, initial encounter (principal); X58.XXXA Exposure to other specified factors, initial encounter; S83.272A Complex tear of lateral meniscus, current injury, left knee, initial encounter; M23.42 Loose body in knee, left knee
CPT/HCPCS: 73721

== ENCOUNTER → 2022-12-30 12:05 | Outpatient (CLI) | payer MEDICARE, SELFPAY ==
--- NOTE | ~2022-12-30 | MM_ITS ---
EXAMINATION: MM screening [facility] [place] HISTORY: Screening mammogram TECHNIQUE: Craniocaudal and mediolateral oblique 3-D tomosynthesis images were obtained and synthetic 2-D images were generated. CAD analysis was submitted and interpreted. COMPARISON: 10/16/2021, 06/14/2020, 04/27/2019, 04/12/2019 BREAST PARENCHYMAL COMPOSITION: There are scattered areas of fibroglandular density. FINDINGS: No suspicious mass, calcification, or architectural distortion are identified in either garrick ast to suggest malignancy. There has been no suspicious interval change. IMPRESSION: 1. No mammographic evidence of malignancy. 2. Recommend routine screening mammography while the patient remains in good health. BI-RADS Category 1: Negative Reviewed, dictated and finalized at location A. IMPRESSION: 1. No mammographic evidence of malignancy. 2. Recommend routine screening mammography while the patient remains in good he alth. BI-RADS Category 1: Negative
== END ==
PROVIDERS: PCP Family Medicine; Visit Provider Family Medicine
DX: Z12.31 Encounter for screening mammogram for malignant neoplasm of breast (principal)
CPT/HCPCS: 77063; 77067

== ENCOUNTER 2023-03-20 08:51 | Outpatient (CLI) | payer MEDICARE, SELFPAY ==
--- NOTE | 2023-03-20 09:37 | ECHO_ITS ---
Patient Info Name: Amina Rodriguez Age: 82 years : 1940 Gender: Female Ht: 62 in Wt: 148 lbs BSA: 1.73 m2 BP: 150 / 98 mmHg Technical Quality: Good Exam Date: 03/20/2023 9:40 AM Exam Location: [facility] Patient Status: Outpatient Admit Date: 03/20/2023 Staff Ordering Physician: Mauricio Smith DO Online Trader: Rosa Palacios RDCS Attending Provider: Mauricio Smith DO Referring Physician: Vera Pichardo APRN; Exam Type: CA echo doppler color flow Study Info Indications I34.1 - Nonrheumatic mitral (valve) prolapse Complete two-dimensional, color flow and Doppler transthoracic echocardiogram is performed. Summary 1. Complete two-dimensional, color flow and Doppler transthoracic echocardiogram is performed. 2. Left ventricular chamber dimension is normal. 3. Left ventricular systolic function is normal, estimated at 60-65%. 4. The left ventricular diastolic function is grade I diastolic dysfunction. 5. E/e' 9 is minimally elevated. 6. Left atrial chamber dimension is mildly enlarged. 7. There is moderate aortic valve sclerosis. 8. There is mild aortic valve stenosis with a peak velocity of 144 cm/s, mean gradient of 5 mmHg, and aortic valve area of 1.9 cm2. 9. There is trace aortic valve regurgitation. 10. The mitral valve has moderately calcified leaflets and moderately calcified annulus. 11. There is trace mitral valve regurgitation. 12. There is trace tricuspid valve regurgitation. 13. No pulmonary hypertension, estimated pulmonary arterial systolic pressure is 30 mmHg. Left Ventricle E/e' 9 is minimally elevated. Left ventricular chamber dimension is normal. Left ventricular systolic function is normal, estimated at 60-65%. The left ventricular diastolic function is grade I diastolic dysfunction. Right Ventricle Right ventricular systolic function is normal and with normal TAPSE 2.5 cm. Right ventricular chamber dimension is normal. Left Atria Left atrial chamber dimension is mildly enlarged. Right Atria Right atrial chamber dimension is normal. Aortic Valve The aortic valve is trileaflet. There is moderate aortic valve sclerosis. There is mild aortic valve stenosis with a peak velocity of 144 cm/s, mean gradient of 5 mmHg, and aortic valve area of 1.9 cm2. There is trace aortic valve regurgitation. Pulmonic Valve There is no pulmonic regurgitation. Mitral Valve The mitral valve has moderately calcified leaflets and moderately calcified annulus. There is no mitral valve stenosis. There is trace mitral valve regurgitation. Tricuspid Valve There is trace tricuspid valve regurgitation. No pulmonary hypertension, estimated pulmonary arterial systolic pressure is 30 mmHg. Pericardium/Pleural There is no pericardial effusion. Inferior Vena Cava Normal inferior vena cava with >50% collapse upon inspiration consistent with normal right atrial pressure, 5 mmHg. Aorta The aortic root size at the sinus of Valsalva is normal. Left Ventricular Outflow Tract Name Value Normal LVOT 2D LVOT Diameter 1.8 cm LVOT Doppler LVOT Peak Gradient 7 mmHg LVOT Mean Gradient 3 mmHg LVOT VTI 23 cm L
[2023-03-20 09:47] LABS: Appearance Urine Turbid (Clear); Bacteria Urine None Seen /hpf; Bilirubin Urine Negative (Negative); Blood Urine Negative (Negative); Color Urine Yellow (Yellow); Glucose Urine UA Negative (Negative); Ketones Urine Negative (Negative); Leukocyte Esterase Ur 2+ LEU/UL (NEGATIVE); Nitrate Urine Negative (Negative); Non Pathogenic Casts 0-2; Protein Urine Negative (Negative); RBC Urine 0-2 /hpf (0-2); Specific Grav Ur 1.018 (1.001-1.035); Squamous Epithelial Cell Urine None seen /hpf (Few); Urobilinogen Urine 0.2 mg/dL (<2.0); pH Urine 6.5 (5.0-9.0)
[2023-03-20 10:06] LABS: Alanine Aminotransferase 29 U/L (6-35); Albumin Level 4.9 g/dL (3.5-5.1); Alkaline Phosphatase 85 U/L (38-126); Anion Gap 10 mmol/L (8-16); Aspartate Amino Transferase 45 U/L (14-36); Bilirubin,Total 0.8 mg/dL (0.2-1.3); Blood Urea Nitrogen 21 mg/dL (7-17); Calcium 10.2 mg/dL (8.4-10.2); Carbon Dioxide 29 mmol/L (22-30); Chloride 98 mmol/L (98-107); Estimated Glomerular Filt Rate > 60; Glucose 128 mg/dL (65-110); Potassium 3.9 mmol/L (3.4-5.0); Sodium 137 mmol/L (137-145)
[2023-03-20 10:14] LABS: Add Urine Microscopic? YES
[2023-03-20 12:04] LABS: Hemoglobin A1C 6.2 % (<5.7)
== END 2023-03-20 08:52 | disposition home or self-care (01) ==
PROVIDERS: PCP Family Medicine; Referring Provider Nurse Practitioner Family; Visit Provider Internal Medicine Cardiovascular Disease
DX: R53.83 Other fatigue (principal); E11.9 Type 2 diabetes mellitus without complications; I10 Essential (primary) hypertension; N81.10 Cystocele, unspecified
CPT/HCPCS: 36415; 80053; 81001; 83036; 84443; 93306

== ENCOUNTER 2023-03-21 11:56 | Outpatient (CLI) | payer MEDICARE, SELFPAY | END 2023-03-21 11:57 | disposition home or self-care (01) | LOC: ANHLAB 11:58 | PROVIDERS: PCP Family Medicine; Visit Provider Nurse Practitioner | DX: R39.9 Unspecified symptoms and signs involving the genitourinary system (principal) | CPT/HCPCS: 87086 ==

== ENCOUNTER 2023-09-03 09:12 | Outpatient (CLI) | payer MEDICARE, SELFPAY ==
--- NOTE | ~2023-09-03 | XR_ITS ---
EXAMINATION: XR knee LT 3V DATE: 09/03/2023 09:44 INDICATION: Osteoarthritis, left knee. TECHNIQUE: 3 views of left knee including standing views were obtained. COMPARISON: Left knee radiographs 12/11/2022 FINDINGS: Bone alignment is normal. No fracture. There is severe osteoarthritis of medial compartment and mild osteoarthritis of lateral and patellofemoral compartments. There is a small knee joint effu miguel. IMPRESSION: 1. Severe left knee osteoarthritis. 2. Small left knee joint effusion. Reviewed, dictated and finalized at location A.
--- NOTE | ~2023-09-03 | XR_ITS ---
EXAM: XR knee RT 3V DATE: 09/03/2023 09:44 HISTORY: M25.561 - Pain in right knee, no inj . COMPARISON: None available. FINDINGS: Decreased mineralization. No fracture or dislocation. No lytic or blastic lesion. Severe m edial joint space narrowing. Moderate tricompartmental osteophytosis. Quadriceps enthesopathy. Modera te volume joint fluid. No erosion or periosteal change. Soft tissues within normal limits. IMPRESSION: Tricompartmental osteoarthritic changes, severe in the medial compartment. Moderate knee joint effusion. Reviewed, dictated and finalized at location K. IMPRESSION: Tricompartmental osteoarthritic changes, severe in the medial karly rtment. Moderate knee joint effusion.
== END 2023-09-03 09:13 | disposition home or self-care (01) ==
LOC: ANHIMG 09:18
PROVIDERS: PCP Family Medicine; Visit Provider Orthopaedic Surgery
DX: M17.0 Bilateral primary osteoarthritis of knee (principal); M25.461 Effusion, right knee; M25.462 Effusion, left knee
CPT/HCPCS: 73562

== ENCOUNTER 2023-10-01 08:10 | Outpatient (CLI) | payer MEDICARE, SELFPAY ==
--- NOTE | ~2023-10-01 | XR_ITS ---
XR abdomen/kub 1V 10/01/2023 09:07 Indication: Constipation Procedure: KUB Comparison: CT dated 01/29/2020 Findings: Bowel gas pattern nonobstructive. Moderate colonic fecal loading there are cholecystectomy clips. There is levoscoliosis with advanced multilevel lumbar spondylosis. There are cholecystectomy clips. There are pelvic phleboliths. Impression: 1: Nonobstructive bowel gas pattern. Reviewed, dictated and finalized at location B. Impression: 1: Nonobstructive bowel gas pattern.
[2023-10-01 09:05] LABS: Hemoglobin A1C 6.2 % (<5.7)
[2023-10-01 09:06] LABS: Alanine Aminotransferase 23 U/L (6-35); Albumin Level 4.8 g/dL (3.5-5.1); Alkaline Phosphatase 86 U/L (38-126); Anion Gap 8 mmol/L (4-12); Aspartate Amino Transferase 33 U/L (14-36); Bilirubin,Total 0.9 mg/dL (0.2-1.3); Blood Urea Nitrogen 16 mg/dL (7-17); Calcium 9.9 mg/dL (8.4-10.2); Carbon Dioxide 28 mmol/L (22-30); Chloride 103 mmol/L (98-107); Cholesterol 144 mg/dL (0-200); Estimated Glomerular Filt Rate > 60; Glucose 137 mg/dL (65-110); HDL Direct 76 mg/dL; Potassium 4.3 mmol/L (3.4-5.0); Sodium 139 mmol/L (137-145); Triglycerides 70 mg/dL (<150)
[2023-10-01 09:22] LABS: LDL Cholesterol Direct 58 mg/dL
[2023-10-01 09:27] LABS: Hematocrit 46.1 % (37.0-47.0); Hemoglobin 14.4 g/dL (12.0-15.0); Mean Corpuscular HGB Conc 31.2 g/dl (32-36); Mean Corpuscular Hemoglobin 30.9 pg (26-34); Mean Corpuscular Volume 98.9 fl (80-100); Mean Platelet Volume 10.2 fl (7.4-10.4); Platelet Count Result 202 k/mm3 (150-375); Red Blood Count 4.66 M/mm3 (4.2-5.4); Red Cell Distribution Width 12.8 % (11.5-14.5); White Blood Count 8.1 K/mm3 (4.5-10.0)
[2023-10-01 09:46] LABS: Iron 134 ug/dL (37-170); Vitamin D 25 Hydroxy 42.8 ng/mL
[2023-10-01 09:55] LABS: Percent Iron Saturation 34 % (20-50)
[2023-10-01 10:06] LABS: Creatinine Urine 179.7 mg/dL
[2023-10-01 10:11] LABS: Microalbumin Urine Random 23.4 mg/L (0-16.7)
== END 2023-10-01 08:11 | disposition home or self-care (01) ==
LOC: ANHLAB 08:16
PROVIDERS: PCP Family Medicine; Visit Provider Family Medicine
DX: E11.9 Type 2 diabetes mellitus without complications (principal); I10 Essential (primary) hypertension; E55.9 Vitamin D deficiency, unspecified; E78.2 Mixed hyperlipidemia; I47.19 Other supraventricular tachycardia; K74.60 Unspecified cirrhosis of liver; K75.81 Nonalcoholic steatohepatitis (NASH); R00.1 Bradycardia, unspecified; G25.81 Restless legs syndrome; K59.00 Constipation, unspecified
CPT/HCPCS: 36415; 74018; 80053; 80061; 82043; 82306; 83036; 83540; 83550; 85027

== ENCOUNTER 2023-11-25 07:11 | Emergency (ER) | payer MEDICARE, SELFPAY ==
--- NOTE | ~2023-11-25 | CT_ITS ---
EXAMINATION: CT cervical spine wo con DATE: 11/25/2023 07:59 INDICATION: Head injury. Neck pain. TECHNIQUE: Computed tomography (CT) of the cervical spine was performed without intravenous contrast. Automated exposure control and iterative reconstruction technique were employed. The dose-length pro duct was 255.96 mGy-cm. COMPARISON: None FINDINGS: There is kyphosis of cervical spine. There is 2 mm retrolisthesis of C4-C6. There is mild c hronic anterior wedging of T1 vertebral body. There is mildly decreased disc height at C3-C4 and steve rely decreased disc height from C5-C6 through C7-T1. The following disc levels are specifically discu ssed: C2-C3: There is no uncovertebral joint osteoarthritis. There is mild right and severe left facet join t osteoarthritis. There is no neural foraminal stenosis. There is no central canal stenosis. C3-C4: There is mild right and moderate left uncovertebral joint osteoarthritis. There is mild right and severe left facet joint osteoarthritis. There is mild left neural foraminal stenosis. There is mi ld central canal stenosis. C4-C5: There is moderate right and mild left uncovertebral joint osteoarthritis. There is severe bila teral facet joint osteoarthritis. There is mild right neural foraminal stenosis. There is mild centra l canal stenosis. C5-C6: There is severe bilateral uncovertebral joint osteoarthritis. There is severe bilateral facet joint osteoarthritis. There is mild bilateral neural foraminal stenosis. There is mild central canal stenosis. C6-C7: There is severe bilateral uncovertebral joint osteoarthritis. There is mild bilateral facet hesham int osteoarthritis. There is mild bilateral neural foraminal stenosis. There is mild central canal st enosis. C7-T1: There is severe bilateral uncovertebral joint osteoarthritis. There is severe bilateral facet joint osteoarthritis. There is mild bilateral neural foraminal stenosis. There is mild central canal stenosis. IMPRESSION: 1. No fracture. 2. Severe cervical spondylosis. Reviewed, dictated and finalized at location E.
--- NOTE | ~2023-11-25 | XR_ITS ---
XR knee RT 3V Ordering provider: Power Gallo MD History: . trauma GLF OUTSIDE FRONTAL RT KNEE HEMATOMA EDEMA . Comparison: September 03, 2023 FINDINGS: BONES: No acute fracture or dislocation. JOINT SPACES: Narrowing of the medial compartment. Marginal osteophytes are also noted. SOFT TISSUES: Normal. IMPRESSION: No acute osseous abnormality right knee. Reviewed, dictated and finalized at location A.
--- NOTE | ~2023-11-25 | CT_ITS ---
EXAMINATION: CT brain wo con DATE: 11/25/2023 07:58 INDICATION: Head injury. TECHNIQUE: Computed tomography (CT) of the head was performed without intravenous contrast. The mA wa s adjusted according to patient size. Iterative reconstruction technique was employed. The dose-lengt h product was 605.33 mGy-cm. COMPARISON: None FINDINGS: There are scattered areas of low attenuation in the cerebral white matter, which is within normal limits for the patient's age. There is no intracranial hemorrhage, acute infarction, or abnor mal intracranial mass lesion. The ventricles are normal in size. There is mild mucosal thickening in the paranasal sinuses. The mastoid air cells are normal. There are likely changes of ocular lens repl acement surgeries. IMPRESSION: 1. Normal aging brain. Reviewed, dictated and finalized at location E. IMPRESSION: 1. Normal aging brain.
[2023-11-25 07:15] VITALS: BP 156/85; PULSE 81; RESP 15; TEMP 36.6; O2SAT 96
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
[2023-11-25 08:40] VITALS: BP 139/84; PULSE 58; RESP 16; O2SAT 97
== END 2023-11-25 08:42 | disposition home or self-care (01) ==
PROVIDERS: Emergency Provider Emergency Medicine; PCP Family Medicine
DX: S09.90XA Unspecified injury of head, initial encounter (principal); S80.01XA Contusion of right knee, initial encounter; I10 Essential (primary) hypertension; E11.9 Type 2 diabetes mellitus without complications; Z90.710 Acquired absence of both cervix and uterus; Z90.49 Acquired absence of other specified parts of digestive tract; Z79.82 Long term (current) use of aspirin; M47.812 Spondylosis without myelopathy or radiculopathy, cervical region; V48.4XXA Person boarding or alighting a car injured in noncollision transport accident, initial encounter
CPT/HCPCS: 70450; 72125; 73562; 99284

== ENCOUNTER 2023-12-02 08:49 | Outpatient (CLI) | payer MEDICARE, SELFPAY ==
--- NOTE | ~2023-12-02 | NM_ITS ---
EXAMINATION: NM awais stress w perfusion DATE: 12/02/2023 11:16 INDICATION: Abnormal electrocardiogram. Right bundle branch block. Preop. TECHNIQUE: Rest images were obtained following intravenous administration of 10.2 mCi Tc99m tetrofosm in (Myoview). The patient was infused intravenously with Lexiscan (regadenoson). Then, 31.4 mCi Tc99m tetrofosmin (Myoview) was administered intravenously, and stress images were obtained. Data was harriet nstructed into short axis and horizontal and vertical long axis SPECT images. Gated SPECT images were also obtained. COMPARISON: Myocardial perfusion imaging 09/24/2017 FINDINGS: There is no definite reversible or fixed perfusion abnormality to suggest ischemia or infar ction. There is no segmental wall motion abnormality. Left ventricular ejection fraction measures > 70%. IMPRESSION: 1. No definite ischemia or infarct. 2. Normal left ventricular ejection fraction measuring greater than 70%. Reviewed, dictated and finalized at location A.
--- NOTE | 2023-12-02 09:36 | EST_ITS ---
Patient Info Name: Amina Rodriguez Age: 82 years : 1940 Gender: Female Ht: 62 in Wt: 156 lbs BSA: 1.78 m2 HR: 63 bpm BP: 148 / 87 mmHg Heart Rhythm: Sinus Rhythm Exam Date: 12/02/2023 10:21 AM Exam Location: [facility] Patient Status: Outpatient Admit Date: 12/02/2023 Staff Ordering Physician: Mauricio Smith DO Attending Provider: Mauricio Smith DO Exercise Technologist: Kely Daley CT Exercise Physician: Mauricio Smith DO Exam Type: CA stress awais w NM Study Info Indications Z01.810 - Encounter for preprocedural cardiovascular examination A regadenoson stress test was performed. Summary 1. 1. Negative Lexiscan myoview stress test for ischemic ST changes by ECG criteria. 2. 2. Baseline hypertension. 3. 3. Nuclear scan to follow and will be reported separately. Please correlate with it. 4. 4. Patient informed of the above results. Protocol: Lexiscan Stress ECG Details Stage: REST Duration (min): 0 min : 58 sec HR (bpm): 66 SBP (mmHg): 148 DBP (mmHg): 87 Stage: REST Duration (min): 1 min : 14 sec HR (bpm): 61 SBP (mmHg): 148 DBP (mmHg): 87 Stage: REST Duration (min): 13 min : 9 sec HR (bpm): 70 SBP (mmHg): 148 DBP (mmHg): 87 Stage: STAGE 1 Duration (min): 0 min : 59 sec HR (bpm): 79 SBP (mmHg): 151 DBP (mmHg): 92 Stage: RECOVERY Duration (min): 1 min : 0 sec HR (bpm): 82 SBP (mmHg): 151 DBP (mmHg): 92 Stage: RECOVERY Duration (min): 2 min : 0 sec HR (bpm): 82 SBP (mmHg): 151 DBP (mmHg): 92 Stage: RECOVERY Duration (min): 3 min : 0 sec HR (bpm): 83 SBP (mmHg): 126 DBP (mmHg): 79 Stage: RECOVERY Duration (min): 3 min : 39 sec HR (bpm): 75 SBP (mmHg): 126 DBP (mmHg): 79 Rest HR: 70 bpm Peak HR: 88 bpm Rest Sys BP: 148 mmHg Peak Sys BP: 151 mmHg Max Pred HR: 137 bpm % Max Pred HR: 64 % Target HR: 116 bpm Max RPP: 13,288 bpm*mmHg Termination Reason: Completed protocol Cardiac Symptoms: Shortness of breath Total Time: 1 min : 0 sec Rest Benson BP: 87 mmHg Peak Benson BP: 92 mmHg Total Dose: 0.4 mg Resting ECG Sinus rhythm, RBBB. Stress ECG No ST changes. Arrhythmias None. Report Signatures
== END 2023-12-02 08:50 | disposition home or self-care (01) ==
LOC: ANHCARD 08:52
PROVIDERS: PCP Family Medicine; Visit Provider Internal Medicine Cardiovascular Disease
DX: Z01.810 Encounter for preprocedural cardiovascular examination (principal)
CPT/HCPCS: 78452; 93017; A9502; J2785

== ENCOUNTER 2024-01-07 08:34 | Outpatient (CLI) | payer MEDICARE, SELFPAY ==
--- NOTE | 2024-01-07 08:57 | ECG_ITS ---
Test Date: 2024-01-07 09:09:22 Measurements Intervals Harris Rate: 58 P: 68 WV: 187 QRS: -25 QRSD: 131 T: -10 QT: 419 QTc: 414 Interpretive Statements SINUS BRADYCARDIA RIGHT BUNDLE BRANCH BLOCK BASELINE ARTIFACT- II, III, AVR, AVL, AVF, V4-V5 ABNORMAL ECG No previous ECG available for comparison Electronically Signed On 01-07-2024 09:15:36 CDT by Mauricio Smith D.O.
[2024-01-07 09:52] LABS: Hematocrit 43.7 % (37.0-47.0); Hemoglobin 13.9 g/dL (12.0-15.0)
[2024-01-07 10:07] LABS: Albumin Level 4.7 g/dL (3.5-5.1); Estimated Glomerular Filt Rate > 60; Glucose 121 mg/dL (65-110)
[2024-01-07 11:39] LABS: Hemoglobin A1C 6.5 % (<5.7)
== END 2024-01-07 08:35 | disposition home or self-care (01) ==
LOC: ANHCARD 08:41
PROVIDERS: PCP Family Medicine; Visit Provider Orthopaedic Surgery
DX: I47.19 Other supraventricular tachycardia (principal); M17.11 Unilateral primary osteoarthritis, right knee; E11.9 Type 2 diabetes mellitus without complications; K74.60 Unspecified cirrhosis of liver; K75.81 Nonalcoholic steatohepatitis (NASH); I45.10 Unspecified right bundle-branch block
CPT/HCPCS: 36415; 82040; 82565; 82947; 83036; 85014; 85018; 93005

== ENCOUNTER 2024-02-02 13:11 | Emergency (ER) | payer MEDICARE, SELFPAY ==
[2024-02-02] VITALS (10 sets, daily range): BP systolic 100–126; BP diastolic 64–74; PULSE 44–97; RESP 15–21; TEMP 36.3–36.6; O2SAT 94–100
--- NOTE | ~2024-02-02 | CT_ITS ---
EXAMINATION: CTA brain carotid DATE: 02/02/2024 20:08 INDICATION: Headache. Neck pain. TECHNIQUE: Computed tomographic angiography (CTA) of the head was performed with 100 mL Omnipaque-350 intravenous contrast. CTA of the neck was performed with intravenous contrast. Automated exposure co ntrol and iterative reconstruction technique were employed. The dose-length product was 932.94 mGy-cm . Maximum intensity projection and volume rendered 3D-reconstructions were created by the [employer] t on a separate workstation. COMPARISON: Head CT 02/02/2024, CT abdomen and pelvis 01/29/2020 FINDINGS: HEAD CTA: There are scattered areas of low attenuation in the cerebral white matter, which is within normal limits for the patient's age. There is no intracranial hemorrhage, acute infarction, or abnorm al intracranial mass lesion. The ventricles are normal in size. There are likely changes of ocular le ns replacement surgeries. There is mild mucosal thickening in the paranasal sinuses. The mastoid air cells are normal. Left vertebral artery is dominant. There is no significant stenosis of basilar madelyn ry or the posterior cerebral arteries. The posterior communicating arteries are normal. There is no s ignificant stenosis of the intracranial internal carotid arteries or anterior or middle cerebral madelyn sonali. Anterior communicating artery is normal. There is no aneurysm. NECK CTA: There is ectasia of ascending aorta measuring 4.6 cm. There is an intramural hematoma of as cending aorta. Aortic atherosclerosis is noted. There is no significant stenosis of the vertebral art eries. There is plaque in the proximal internal carotid arteries. There is 0% stenosis of the proxima l right internal carotid artery relative to normal distal artery lumen diameter (NASCET criteria). Th ere is 0% stenosis of the proximal left internal carotid artery relative to normal distal artery lume n diameter. There is severe cervical spondylosis. IMPRESSION: 1. Intramural hematoma of ascending aorta. Chest CTA is recommended. 2. Normal aging brain. No aneurysm or significant intracranial arterial stenosis. 3. 0% stenosis of the proximal internal carotid arteries relative to normal distal artery lumen diame ters (NASCET criteria). Reviewed, dictated and finalized at location A. IMPRESSION: 1. Intramural hematoma of ascending aorta. Chest CTA is recommended. 2. Normal aging brain. No aneurysm or significant intracranial arterial stenosi s. 3. 0% stenosis of the proximal internal carotid arteries relative to normal dis son artery lumen diameters (NASCET criteria).
--- NOTE | ~2024-02-02 | CT_ITS ---
EXAMINATION: CT brain wo con DATE: 02/02/2024 14:01 INDICATION: Headache. Neck pain. TECHNIQUE: Computed tomography (CT) of the head was performed without intravenous contrast. Sagittal and coronal reconstructions were performed. The mA was adjusted according to patient size. Iterative reconstruction technique was employed. The dose-length product was 529.67 mGy-cm. COMPARISON: head CT dated 11/25/2023 FINDINGS: No acute intracranial hemorrhage, acute infarction or abnormal extra axial fluid collection. There is mild scattered white matter hypoattenuation consistent with chronic small vessel ischemic disease. V entricles are normal and symmetric. No mass/mass effect. Changes of bilateral intraocular lens replac ement. The orbits and mastoid air cells are normal. There is bubbly mucus in the left sphenoid sinus. IMPRESSION: 1. Normal aging brain. No acute intracranial process. Reviewed, dictated and finalized at location A.
--- NOTE | ~2024-02-02 | CT_ITS ---
Clinical Indication: Back pain, hematoma CT Scan of the Chest, Abdomen, and Pelvis with Contrast: Technique: Contiguous sections were acquired throughout the chest, abdomen, and pelvis after intraven ous administration of 100 cc of Omnipaque 350. Dose reduction technique was used on this scan by charisma guerra automated exposure control and iterative reconstruction technique. The dose-length product (DL P) was 1066.53 mGy-cm. COMPARISON: 02/02/2024 Findings: There is been interval development of dissection flap at the ascending aorta, consistent with ascendi ng aortic dissection. Extensive intramural hematoma the ascending aorta aortic arch is progressed fro m prior exam. There is additional soft tissue thickening about the hilar regions, which could represe nt additional extension of blood products/hemorrhage. No pulmonary embolus evident.. There is no evidence of pleural or pericardial effusion. There is mild right basilar atelectatic change. No suspicious pulmonary nodule evident. Nodular contour of the liver could reflect cirrhotic change. Left hepatic lobe cyst present. Gallblad emigdio absent. The spleen, pancreas, and adrenal glands are within normal limits. Small bilateral nonobs tructing renal stones are present. No evidence of aortic aneurysm. No lymphadenopathy. No bowel obstruction or bowel wall thickening. There is no evidence to suggest acute appendicitis. Urinary bladder is unremarkable. No pelvic mass seen. No ascites. Impression: Interval development of morgan ascending aortic dissection. There is also more extensive intramural he matoma of the ascending aorta and aortic arch, and increased probable mediastinal hemorrhage/blood pr oducts, as detailed above. Cirrhotic change of the liver. Case discussed with Dr. Velarde in the emergency room at the time of this reading. Reviewed, dictated and finalized at location M. Impression: Interval development of morgan ascending aortic dissection. There is also more e xtensive intramural hematoma of the ascending aorta and aortic arch, and increa sed probable mediastinal hemorrhage/blood products, as detailed above. Cirrhotic change of the liver. Case discussed with Dr. Velarde in the emergency room at the time of this ke ding.
--- NOTE | ~2024-02-02 | CT_ITS ---
EXAMINATION: CTA chest DATE: 02/02/2024 21:12 INDICATION: Intra-abdominal hematoma of ascending aorta. TECHNIQUE: Computed tomographic angiography (CTA) of the chest was performed without and with 100 mL Omnipaque-350 intravenous contrast. Automated exposure control and iterative reconstruction technique were employed. The dose-length product was 418.11 mGy-cm. Maximum intensity projection 3D-reconstruc tions of the aorta and other arteries were constructed by the technologist on a separate workstation. COMPARISON: CT abdomen and pelvis 01/29/2020 FINDINGS: There is marked elevation of right hemidiaphragm. There is peripheral septal thickening in the lungs. No bronchiectasis or honeycombing. There is mild atelectasis in right lower lobe. No pleur al effusion. The heart size is normal. There are coronary artery calcifications. No pericardial effus ion. There is ectasia of ascending aorta measuring 4.6 cm. There is an intramural hematoma in ascendi ng aorta with thickness of 8 mm. There is mild aortic atherosclerosis. The liver demonstrates hypertr ophy of left lateral segment and surface nodularity, consistent with cirrhosis. There are cysts in th e liver measuring up to 17 mm. There are cysts in right kidney measuring up to 2.5 cm. There are agarwal ges of cholecystectomy. There is mild thoracic spondylosis. IMPRESSION: 1. Intramural hematoma of ascending aorta. Ectasia of ascending aorta. 2. Mild chronic interstitial lung disease. 3. Cirrhosis of the liver. Reviewed, dictated and finalized at location A.
--- NOTE | ~2024-02-02 | XR_ITS ---
Portable chest x-ray Comparison: 10/08/2017 Clinical History: Chest pain Findings: There is linear scarring right midlung. Left lung clear. Cardiomediastinal silhouette is stable. Bones and soft tissues are unremarkable. Impression: Linear scarring right midlung, otherwise clear lungs. Reviewed, dictated and finalized at [facility]. Impression: Linear scarring right midlung, otherwise clear lungs.
--- NOTE | ~2024-02-02 | XR_ITS ---
EXAMINATION: XR chest port-a-cath/central DATE: 02/03/2024 13:52 INDICATION: Central line placement TECHNIQUE: frontal view of the chest was obtained. COMPARISON: Chest radiograph dated 02/03/2024 at 10:12 AM FINDINGS: Interval placement of a left subclavian central venous catheter with distal tip at the superior cavoa trial junction. Mild elevation the right hemidiaphragm. Mild streaky bibasilar atelectasis. No edema, pleural effusion or pneumothorax. Heart size is normal. There is increased prominence of the bilater al medhat. Cholecystectomy clips in the right upper quadrant. IMPRESSION: 1. Left internal jugular central venous catheter tip at the superior cavoatrial junction. 2. Enlargement of the bilateral medhat which on intervening CT appears to result from extensive mediast inal hemorrhage related to a ruptured ascending thoracic aortic aneurysm. Reviewed, dictated and finalized at location A. IMPRESSION: 1. Left internal jugular central venous catheter tip at the superior cavoatrial junction. 2. Enlargement of the bilateral medhat which on intervening CT appears to result from extensive mediastinal hemorrhage related to a ruptured ascending thoracic aortic aneurysm.
--- NOTE | 2024-02-02 13:38 | ECG_ITS ---
Test Date: 2024-02-02 13:50:11 Measurements Intervals [place] Rate: 45 P: 68 ID: [id number] QRS: -14 QRSD: 136 T: -1 QT: 488 QTc: 424 Interpretive Statements SINUS BRADYCARDIA RIGHT BUNDLE BRANCH BLOCK [120+ ms QRS DURATION, UPRIGHT V1, 40+ ms S IN I/aVL/V4/V5/V6] Compared to ECG 01/07/2024 09:09:22 No significant changes Electronically Signed On 02-03-2024 15:27:46 CDT by Cristopher Aguillon M.D.
--- NOTE | 2024-02-02 13:39 | ED.NEUROSD ---
HPI - Neuro Symptoms/Deficit General Chief Complaint: Neuro Symptoms/Deficit <Celine Fink PA-C - Last Filed: 02/05/24 09:47> Stated Complaint: neck pain,headache,partial vision loss that return <Celine Fink PA-C - Last Filed: 02/05/24 09:47> Time Seen by Provider: 02/02/24 13:39 <Celine Fink PA-C - Last Filed: 02/05/24 09:47> Focused HPI: This is a 83 year old female that presents to the ER for a headache. Reports this morning she started to have pain in her right jaw. It started to radiate into her right head and neck. She then started to see red spots in her vision. This has resolved. Reports she now has some floaters. Denies chest pain, shortness of breath, focal numbness or weakness. GENERAL: Well-appearing, well-nourished, and in no acute distress. HEAD: Normocephalic, atraumatic. CHEST: Clear to auscultation. ?No respiratory distress. HEART: Regular rate and rhythm.? NEURO: ?Alert and oriented x3. Patient screened in triage and initial orders placed.? ?Additional care and disposition to be based upon?diagnostic testing and treatment. Agree with triage assessment. Patient states that symptoms started around 11:00 a.m. this morning and resolved around noon. Patient currently denies any symptoms including any chest pain, shortness of breath, nausea, vomiting, abdominal pain, fevers or chills. All her symptoms have resolved. NIH score 0. <Celine Fink PA-C - Last Filed: 02/05/24 09:47> Focused HPI: This is a 83 year old female that presents to the ER for a headache. Reports this morning she started to have pain in her right jaw. It started to radiate into her right head and neck. She then started to see red spots in her vision. This has resolved. Reports she now has some floaters. Denies focal numbness or weakness. GENERAL: Well-appearing, well-nourished, and in no acute distress. HEAD: Normocephalic, atraumatic. CHEST: Clear to auscultation. ?No respiratory distress. HEART: Regular rate and rhythm.? NEURO: ?Alert and oriented x3. Patient screened in triage and initial orders placed.? ?Additional care and disposition to be based upon?diagnostic testing and treatment. Agree with triage assessment. Patient states that symptoms started around 11:00 a.m. this morning and resolved around noon. Patient currently denies any symptoms including any chest pain, shortness of breath, nausea, vomiting, abdominal pain, fevers or chills. All her symptoms have resolved. NIH score 0. <Inna Escobar MD - Last Filed: 02/02/24 22:04> Related Data Home Medications: Home Medications Medication Instructions Recorded Confirmed aspirin 81 mg tablet,delayed 81 mg PO DAILY 02/22/20 01/05/24 release multivitamin 1 tablet PO DAILY 02/12/23 01/05/24 fluticasone propionate 50 2 spray intranasal DAILY PRN 09/30/23 01/05/24 mcg/actuation nasal spray,suspension (Flonase Allergy Relief) calcium carbonate 500 mg-vitamin 1 tablet PO DAILY 11/21/23 01/05/24 D3 5 mcg (200 unit) tablet (Calcium 500 + D) diltiazem HCl 120 mg 120 mg PO DAILY 02/03/24 capsule,extended release 24 hr (Cardizem CD) <Celine Fink PA-C - Last Filed: 02/05/24 09:47> Allergies/Adverse Reactions: Allergies Allergy/AdvReac Type Severity Reaction Status Date / Time celecoxib [From Celebrex] Allergy Severe Rash Verified 01/02/24 09:40 ADRIEN Inhibitors Allergy Unknown Unknown Verified 01/02/24 09:40 cefuroxime Allergy Unknown Muscle Pain Verified 01/02/24 09:40 levofloxacin Allergy Unknown Muscle Pain Verified 01/02/24 09:40 succinylcholine Allergy Unknown Unknown Verified 01/02/24 09:40 Gqvhjfm-RRF-KsE Reductase AdvReac Severe leg Verified 01/02/24 09:40 Inhibitor cramping [Soutxnq-Ilc-Uxp Reductase Inhibitor] <Celine Fink PA-C - Last Filed: 02/05/24 09:47> Review of Systems Review of Systems: All systems are reviewed and are negative unless stated otherwise in the HPI.
[2024-02-02 16:01] LABS: Basophils Absolute Auto 0.1 K/mm3 (0.0-0.1); Basophils Percent Auto 0.5 % (0.2-1.2); Eosinophils Absolute Auto 0.2 K/mm3 (0-0.3); Eosinophils Percent Auto 1.4 % (0-4.4); Hematocrit 40.5 % (37.0-47.0); Hemoglobin 12.9 g/dL (12.0-15.0); Immature Granulocyte Absolute 0.03 K/mm3 (0.00-0.031); Immature Granulocyte Percent A 0.3 % (0-0.5); Lymphocytes Absolute Auto 2.01 K/mm3 (0.9-3.2); Lymphocytes Percent Auto 19.4 % (18.3-44.2); Mean Corpuscular HGB Conc 31.9 g/dl (32-36); Mean Corpuscular Hemoglobin 31.9 pg (26-34); Mean Platelet Volume 10.5 fl (7.4-10.4); Monocytes Absolute Auto 0.7 K/mm3 (0.1-0.6); Monocytes Percent Auto 6.6 % (2.6-8.5); Neutrophils Absolute Auto 7.5 K/mm3 (1.3-6.7); Neutrophils Percent Auto 71.8 % (45.5-73.1); Platelet Count Result 182 k/mm3 (150-375); Red Blood Count 4.05 M/mm3 (4.2-5.4); Red Cell Distribution Width 12.4 % (11.5-14.5); White Blood Count 10.4 K/mm3 (4.5-10.0)
[2024-02-02 16:13] LABS: Alanine Aminotransferase 21 U/L (6-35); Albumin Level 4.3 g/dL (3.5-5.1); Alkaline Phosphatase 79 U/L (38-126); Anion Gap 11 mmol/L (4-12); Aspartate Amino Transferase 38 U/L (14-36); Bilirubin,Total 0.6 mg/dL (0.2-1.3); Blood Urea Nitrogen 24 mg/dL (7-17); Calcium 9.4 mg/dL (8.4-10.2); Carbon Dioxide 29 mmol/L (22-30); Chloride 96 mmol/L (98-107); Estimated CRCL calculation 38 ml/min; Estimated Glomerular Filt Rate 60; Glucose 120 mg/dL (65-110); Potassium 4.6 mmol/L (3.4-5.0); Sodium 136 mmol/L (137-145)
[2024-02-02 16:24] LABS: Troponin I < 0.012 ng/mL (0.000-0.034)
[2024-02-02 16:31] LABS: Prothrombin Time 13.8 Seconds (11.1-14.7)
[2024-02-02 16:32] LABS: Partial Thromboplastin Time 28.8 Seconds (22.3-36.8)
[2024-02-02 16:37] LABS: Influenza A QL RT-PCR Negative (Negative); Influenza B QL RT-PCR Negative (Negative); RSV RNA, RT-PCR Negative (Negative); SARS-CoV-2 RNA PCR Negative (Negative)
[2024-02-03] VITALS (16 sets, daily range): BP systolic 98–139; BP diastolic 58–102; PULSE 51–87; RESP 16–20; O2SAT 87–100
[2024-02-03] MEDS: ACETAMINOPHEN 325 MG TABLET 650 MG PO (03:58)
--- NOTE | 2024-02-03 09:49 | ECG_ITS ---
Test Date: 2024-02-03 09:55:18 Measurements Intervals [place] Rate: 79 P: 63 MD: 185 QRS: -4 QRSD: 135 T: -28 QT: 392 QTc: 450 Interpretive Statements SINUS RHYTHM WITH WITH OCCASIONAL SUPRAVENTRICULAR PREMATURE COMPLEXES RIGHT BUNDLE BRANCH BLOCK [120+ ms QRS DURATION, UPRIGHT V1, 40+ ms S IN I/aVL/V4/V5/V6] Compared to ECG 02/02/2024 13:50:11 NO SIGNIFICANT CHANGES Electronically Signed On 02-03-2024 16:14:14 CDT by Cristopher Aguillon M.D.
--- NOTE | 2024-02-03 09:50 | PC.NURSE ---
This Rn entered pt room to give update and reassess pt. Pt c/o PENN, sudden sharp back pain between shoulder blades. made aware. Dr. Prachi GOTTI for chest xray, troponin, and ekg stat.
[2024-02-03 10:39] LABS: Troponin I < 0.012 ng/mL (0.000-0.034)
[2024-02-03] MEDS: ACETAMINOPHEN 500 MG TABLET 1000 MG PO (11:18)
--- NOTE | 2024-02-03 11:29 | PC.NURSE ---
Pt family at bedside complaining that pt cannot wait this long without eating or drinking and want to talk to the doctor about exploring options for transfer to another hospital. Pt and family educated on transfer process. made aware.
[2024-02-03 11:30] LABS: Glucose Point of Care 162 mg/dl (65-105)
--- NOTE | 2024-02-03 12:27 | PC.NURSE ---
Pt c/o increased diffuse back pain across upper medial back along with hot flashes and worsening PENN. Md made aware. Dr. Prachi GOTTI to put in Chest CTA.
[2024-02-03] MEDS: fentaNYL CITRATE INJ (*CRX) 100 MCG/2 ML VIAL 50 MCG IV PUSH (12:45)
[2024-02-03] MEDS: ONDANSETRON INJ 4 MG/2 ML VIAL IV PUSH (12:46)
--- NOTE | 2024-02-03 12:46 | PC.NURSE ---
Juanito with [facility] Transfer center called for any update on pt status. Update given. She states a bed is still unavailable and will call when one becomes available.
[2024-02-03] MEDS: LACTATED RINGERS 1,000 ML 999 ML IV CONT (12:49)
--- NOTE | 2024-02-03 13:30 | PC.NURSE ---
[facility] [employer] [facility] placed on standby [facility] accepted transfer to [facility] ETA 8min 1328 [facility] [employer] notified of [facility] [employer] [facility] arrived
--- NOTE | 2024-02-03 13:35 | PC.NURSE ---
Report given to KYLE Henson at [facility]
[2024-02-03] MEDS: ESMOLOL HCL 100 MG/10 ML VIAL 35 MG IV PUSH (13:36)
[2024-02-03] MEDS: ESMOLOL HCL 2,500 MG/250 ML 2,500 MG/250 ML BAG IV CONT (13:37)
--- NOTE | 2024-02-03 13:48 | PC.NURSE ---
care given to [facility] air crew. esmolol infusing, 1l LR to be bolus levophed to go with flight crew
--- NOTE | 2024-02-03 13:58 | PC.NURSE ---
2 units PRBC and 1 unit of platelets to be started by [employer] flight medic and flight RN.
== END 2024-02-03 14:00 | disposition short-term general hospital (02) ==
PROVIDERS: Emergency Medicine; Physician Assistant; Emergency Provider Student in an Organized Health Care Education/Training Program; PCP Family Medicine
DX: I71.010 Dissection of ascending aorta (principal); Z20.822 Contact with and (suspected) exposure to COVID-19; I10 Essential (primary) hypertension; E11.9 Type 2 diabetes mellitus without complications; Z90.710 Acquired absence of both cervix and uterus; Z90.49 Acquired absence of other specified parts of digestive tract; Z79.82 Long term (current) use of aspirin; Z79.899 Other long term (current) drug therapy; K74.60 Unspecified cirrhosis of liver; J84.9 Interstitial pulmonary disease, unspecified; R00.1 Bradycardia, unspecified; I45.10 Unspecified right bundle-branch block; I49.1 Atrial premature depolarization
CPT/HCPCS: 36415; 36430; 36556; 70450; 70496; 70498; 71045; 71275; 74174; 80053; 82948; 84484; 85025; 85610; 85730; 86900; 86901; 86920; 87637; 93005; 96361; 96365; 96375; 99285; A9270; J2405; J3010; J7030; J7120; P9016; P9034; Q9967

== ENCOUNTER 2024-04-01 07:55 | Outpatient (CLI) | payer MEDICARE, SELFPAY ==
[2024-04-01 08:24] LABS: Cholesterol 157 mg/dL (0-200); HDL Direct 81 mg/dL; Triglycerides 102 mg/dL (<150)
[2024-04-01 08:35] LABS: LDL Cholesterol Direct 46 mg/dL
[2024-04-01 08:51] LABS: Vitamin D 25 Hydroxy 19.1 ng/mL
== END 2024-04-01 07:56 | disposition home or self-care (01) ==
PROVIDERS: PCP Family Medicine; Visit Provider Family Medicine
DX: E55.9 Vitamin D deficiency, unspecified (principal); I10 Essential (primary) hypertension
CPT/HCPCS: 36415; 80061; 82306

== ENCOUNTER 2024-04-06 08:02 | Outpatient (CLI) | payer MEDICARE, SELFPAY ==
[2024-04-06 08:42] LABS: Anion Gap 11 mmol/L (4-12); Blood Urea Nitrogen 17 mg/dL (7-17); Calcium 9.5 mg/dL (8.4-10.2); Carbon Dioxide 31 mmol/L (22-30); Chloride 94 mmol/L (98-107); Estimated Glomerular Filt Rate > 60; Glucose 145 mg/dL (65-110); Potassium 4.3 mmol/L (3.4-5.0); Sodium 136 mmol/L (137-145)
== END 2024-04-06 08:03 | disposition home or self-care (01) ==
LOC: ANHLAB 08:04
PROVIDERS: PCP Family Medicine; Visit Provider Family Medicine
DX: E87.1 Hypo-osmolality and hyponatremia (principal)
CPT/HCPCS: 36415; 80048

== ENCOUNTER 2024-05-26 08:55 | Outpatient (CLI) | payer MEDICARE, SELFPAY ==
--- NOTE | 2024-05-26 12:29 | WPDPFTINT ---
PFT Procedure Performed PFT Procedure Performed Spirometry with Pre/Post Bronchodilator Plethysmography (Lung Vol) Diffusing Cap (DLCO) Flow Vol Loop PFT Interpretation This is a pulmonary function test with pre and post-bronchodilator spirometry, plethysmography and diffusing capacity. The test was performed and results interpreted in accordance with the 2019 and 2005 ATS/ERS Task Force guidelines respectively using the Global Lung Function Initiative-2012 reference equations. Patient demonstrated good effort and cooperation. Reproducibility criteria were met. The quality of the pre bronchodilator spirometry maneuver was Grade A and post bronchodilator spirometry maneuver was Grade A. Findings: Spirometry: The contour of the expiratory flow tracing resembles a witch's hat . The contour the inspiratory flow tracing is normal. The pre bronchodilator FVC is 1.46 L, 65% predicted. The pre bronchodilator FEV1 is 1.09 L, 64% predicted. The pre bronchodilator FEV1: FVC ratio 75%. The post bronchodilator FVC is 1.59 L, representing a 9% increase. The post bronchodilator FEV1 is 1.19 L, representing a 10% increase. The post bronchodilator FEV1: FVC ratio 75%. Plethysmography: The total lung capacity is 3.50 L, 74% predicted. The functional residual capacity is 2.32 L, 85% predicted. The residual volume is 2.02 L, 85% predicted. Diffusing capacity: The diffusing capacity unadjusted for hemoglobin and carboxyhemoglobin is 10.2, 56% predicted. The diffusing capacity adjusted for alveolar volume is 4.51, 108% predicted. Impression: There is a moderate restrictive ventilatory abnormality. The spirometry is normal without evidence of an obstructive abnormality. There is no significant improvement after inhaling a single dose of albuterol. The diffusing capacity unadjusted for hemoglobin and carboxyhemoglobin is moderately decreased and normalizes when adjusted for alveolar volume. There are no prior studies for comparison
== END 2024-05-26 08:56 | disposition home or self-care (01) ==
LOC: ANHPFT 08:57
PROVIDERS: PCP Family Medicine; Visit Provider Internal Medicine Pulmonary Disease
DX: R06.00 Dyspnea, unspecified (principal); R94.2 Abnormal results of pulmonary function studies
CPT/HCPCS: 94060; 94726; 94729

== ENCOUNTER 2024-06-30 13:47 | Outpatient (CLI) | payer MEDICARE, SELFPAY ==
[2024-06-30 16:22] LABS: MALB Creatinine Ratio < 11.1 mg/g (0-30); Microalbumin Urine Random < 6.0 mg/L (0-16.7)
[2024-06-30 16:36] LABS: Hemoglobin A1C 6.8 % (<5.7)
--- OUTSIDE RECORDS SUMMARY | 2024-07-02 01:28 | XMS_ITS | Clinical Summary ---
Author Organization [facility] Address [address] [facility] [place] [address] Care Team Providers Care Planting Material Carrier Name Role Phone Renzo He MD Primary Care Provider [phone] [facility],non-owned Affiliates and Associated Physician Practices is amultiple site organization consisting of ambulatory clinics and hospital sitesin [place], [place], [place]. This disclosure is being madepursuant to the Care Everywhere program and may not contain all information available regarding this patient. Last updated 18.[facility] Allergies Active Allergy Reactions Criticality Noted Date Comments Succinylcholine Anaphylaxis High 02/03/2024 Medications * Be aware that medications may not be up to date on this document. Alwaysverify current medications with the patient. Medication Sig Dispensed Refills Start Date End Date Status acetaminophen (Tylenol) 500 MG tablet Take 1 (one) tablet by mouth every 6 hours as needed Maximum allowable Acetaminophen amount = 4 Grams (4000 mg) / 24 hours. 60 tablet 1 02/22/20 24 Active fluticasone propionate (Flonase) 50 MCG/ACT nasal sprayIndications:N maría Congestion,Rhinosi nusitis [place] 2 (two) sprays into each nostril once daily as needed (congestion, rhinosinusitis) Reasons: Inflammation of the Sinuses and the Nose, Stuffy Nose 16 g 1 02/22/20 24 Active Oxygen Oxygen with portability - continuous at 1L/min at rest and 2 L/min with activity via nasal cannula - Estimate length of need (number of months): 3 1 Each 02/22/20 24 Active apixaban (Eliquis) 2.5 MG tabletIndications: Atrial Fibrillation Take 1 (one) tablet by mouth 2 times daily Reasons: Atrial Fibrillation 180 tablet 3 03/11/20 24 025 Active atorvastatin (Lipitor) 40 MG tabletIndications: Hyperlipidemia, unspecified hyperlipidemia type TAKE 1 TABLET BY MOUTH AT BEDTIME 30 tablet 05/24/20 24 Active losartan (Cozaar) 25 MG tabletIndications: Essential hypertension Take 1 (one) tablet by mouth once daily 90 tablet 3 06/17/19 25 Active carvedilol (Coreg) 3.125 MG tabletIndications: 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) Take 1 (one) tablet by mouth 2 times daily with morning and evening meal 06/28/19 25 Active amiodarone (Cordarone) 200 MG tablet Take 1 (one) tablet by mouth once daily 30 tablet 2 02/23/20 24 025 Discontinued(Li st Clean-Up) metoprolol succinate XL 24hr (Toprol XL) 25 MG tablet Take 0.5 (one-half) tablet by mouth once daily 30 tablet 2 02/23/20 24 025 Discontinued(Cl inical Decision) loratadine (Claritin) 10 MG tablet Take 1 (one) tablet by mouth once daily as needed for Runny Nose 30 tablet 1 02/22/20 24 025 Discontinued(Cl inical Decision) hydroCHLOROthiazid e (Hydrodiuril) 25 MG tablet Take 1 (one) tablet by mouth once daily 30 tablet 3 03/11/20 24 025 Discontinued(Cl inical Decision) carvedilol (Coreg) 3.125 MG tabletIndications: 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) Take 0.5 (one-half) tablet by mouth 2 times daily with morning and evening meal 90 tablet 3 06/17/19 25 025 Discontinued Active Problems Problem Noted Date Diagnosed Date Persistent atrial fibrillation 06/17/2024 T2DM (type 2 diabetes mellitus) 02/04/2024 Endotracheally intubated 02/04/2024 H/O mitral valve prolapse 02/04/2024 History of repair of hiatal hernia 02/04/2024 Other acute back pain 02/03/2024 Type 1 dissection of ascending aorta 02/03/2024 Intramural aortic hematoma 02/02/2024 Encounters Date Type Department Care Team Description 06/28/2024 Orders Only [facility] - Cardiology [address] [facility], [address] [address] Enio Sheehan MD 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) 06/25/2024 Telephone [facility] - Cardiology [address] [facility], [address] [address] Dveaughn Glaser RN Question 06/24/2024 Telephone [facility] - Cardiology [address] [facility], [address] [address] Enio Sheehan MD Medication Issue 06/17/2024 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 Office Visit [facility] - Cardiology [address] [facility], [address] [address] Enio Sheehan MD Persistent atrial fibrillation (HCC) (Primary Dx); Essential hypertension; 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) 06/17/2024 Travel 05/21/2024 Refill [facility] - Cardiothoracic Surgery [address] [place] [address], [place] [address] Tonya Piedra MD Refill Request 04/26/2024 Refill [facility] - Cardiothoracic Surgery [address] [place] [address] Tonya Piedra MD Refill Request 04/05/2024 Telephone [facility] Physician [facility] - Cardiothoracic Surgery [address] [place] [phone] Munira Borja RN Follow-up from Last 3 Months Social History Tobacco Use Types Packs/Day Years Used Date Smoking Tobacco: Never Smokeless Tobacco: Never Tobacco Cessation:Counseling Given: No Alcohol Use Standard Drinks/Week Comments Never 0 (1 standard drink = 0.6 oz pur e alcohol) AUDIT-C Answer Date Recorded Q1: How often do you have a drink containing alcohol? Never 02/19/2024 Q2: How many drinks containi ng alcohol do you have on a typical day when you are drinking? Patient does not drink Q3: How often do you have si x or more drinks on one occasion? Never 02/19/2024 Overall Financial Resource Strain (CARDIA) Answe r Date Recorded How hard is it for you to pa y for the very basics like food, housing, medical care, and heating? Not hard at all 02/19/2024 [facility] [place] of Occupat ional Health - Occupational Stress Questionnaire Answer Date Recorded Do you feel stress - tense, restless, nervous, or anxious, or unable to sleep at night because your mind is troubled all the time - these days? Only a little 02/19/2024 Hunger Vital Sign Answer Date Recorded Within the past 12 months, y ou worried that your food would run out before you got the money to buy more. Never true 02/19/20 24 Within the past 12 months, t he food you bought just didn't last and you didn't have money to get more. Never true 02/19/2024 PRAPARE - Transportation Answer Date Re corded In the past 12 months, has l ack of transportation kept you from medical appointments or from getting medications? No 02/07 In the past 12 months, has l ack of transportation kept you from meetings, work, or from getting things needed for daily living? No 02/19/2024 Housing Stability Vital Sign Answer Herve e Recorded In the last 12 months, was t here a time when you were not able to pay the mortgage or rent on time? No 02/19/2024 In the last 12 months, how many places have you lived? 1 02/19/2024 In the last 12 months, was t here a time when you did not have a steady place to sleep or slept in a [place] health care facility (including now)? No 02/19/2024 Sex and Gender Information Value Date Recorded Sex Assigned at Not on file Gender Identity Not on file Sexual Orientation Not on file Last Filed Vital Signs Vital Sign Reading Time Taken Comments Blood Pressure 130/84 06/17/2024 8:34 AM ROLL FORM OPERATOR Pulse 77 06/17/2024 8:34 AM ROLL FORM OPERATOR Temperature 36.1 ??C (97 ??F) 03/18/2024 1:58 PM CDT Respiratory Rate 18 03/18/2024 1:58 PM CDT Oxygen Saturation 93% 06/17/2024 8:34 AM ROLL FORM OPERATOR Inhaled Oxygen Concentration 40% 02/13/2024 9 :00 AM CDT Weight 64.4 kg (142 lb) 06/17/2024 8:34 AM ROLL FORM OPERATOR Height 157.5 cm (5' 2 ) 06/17/2024 8:34 AM ROLL FORM OPERATOR Body Mass Index 25.97 06/17/2024 8:34 AM ROLL FORM OPERATOR Plan of Treatment Upcoming Encounters Date Type Department Care Team (Late st Contact Info) Description 09/16/2024 12:00 PM CDT Appointment [facility] CAT SCAN [address] [place] [address] Tonya Piedra MD [address] [place], [place] [id number] Health Maintenance Due Date Last Done Comments BONE DENSITY TESTING 1940 DTAP/TDAP/TD VACCINES (1 - Tdap) 12/14/1958 PNEUMOCOCCAL VACCINE 50+ (1 of 2 - PCV) 12/14/1958 ZOSTER VACCINE (1 of 2) 12/14/1989 Respiratory Syncytial Virus (RSV) Vaccine Pt: or over 60 yrs (1 - 1-dose 75+ series) 12/14/2014 DIABETES RETINOPATHY SCREENING 02/04/2024 DIABETES-FOOT EXAM WITH MONOFILAMENT 02/04/2024 COVID-19 VACCINE ( season) 2024 04/16/2023, 04/11/2022, 04/05/2021, Additional history exists INFLUENZA VACCINE (#1) 2024 , 04/11/2022, 02/14/2021, Additional history exists DEPRESSION SCREENING 06/09/2024 DIABETES - URINE PROTEIN SCREENING 06/09/2024 MEDICARE AWV ? CALENDAR YEAR 2024 DIABETES-HGB A1C 08/06/2024 02/05/2024 DIABETES-SERUM CREATININE 06/26/20252024, 06/26/2024, 03/04/2024, Additional history exists HEPATITIS B VACCINE Aged Out No longe r eligible based on patient's age to complete this topic HIB VACCINE Aged Out No longer eligi ble based on patient's age to complete this topic HPV VACCINE Aged Out No longer eligi ble based on patient's age to complete this topic MENINGOCOCCAL (Group B) VACCINE Aged Out No longer eligible based on patient's age to complete this topic MENINGOCOCCAL VACCINE Aged Out No odell oleksandr eligible based on patient's age to complete this topic Medical Devices Implanted Type Area Community Action Worker Device Identifier Shelf Expiration Date Model / Serial / Lot Graft Cv 10mm 30cm [facility] Polystr 2 r - [id number] Implanted:Qty: 1 on 02/03/2024 by Tonya Piedra MD at [facility] N/A: Subclavian Maquet 09/06/2028 [id number] [facility] / [id number] Description: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 [place] Cv 6x6in Thk1.65mm Ptfe Ptch Strl Implanted:Qty: 2 on 02/03/2024 by Tonya Piedra MD at [facility] N/A: Aorta Bard Peripheral Vascular 06/05/2028 [id number] / / [id number] Procedures Procedure Name Priority Date/Time Associated Diagnosis Comments CARDIAC REHAB 04/13/2024 COMPREHENSIVE METABOLIC PANEL Routine 03/04/2024 12:46 PM CDT Dissection of aorta, unspecified portion of aorta (HCC) HEMOGLOBIN A1C Routine 02/05/2024 3:13 AM CDT from Last 3 Months or Most Recently Relevant to Health Maintenance Results * CARDIAC REHAB (04/13/2024) 04/13/2024 Narrative 04/13/2024 Ordered by an unspecified provider. Scanned Document SCANNING ONLY * (ABNORMAL) COMPREHENSIVE METABOLIC PANEL (03/04/2024 12:46 PM [facility]) BUN 14 7 - 26 mg/dL 03/04/2024 2:07 PM [facility] Creatinine 0.75 0.56 - 0.96 mg/dL 03/04/2024 2:07 PM [facility] Sodium 128(L) 136 - 145 mmol/L 03/04/2024 2:07 PM [facility] Potassium 4.6(H) 3.5 - 4.5 mmol/L 03/04/2024 2:07 PM [facility] Chloride 92(L) 98 - 107 mmol/L 03/04/2024 2:07 PM [facility] CO2 27 22 - 29 mmol/L 03/04/2024 2:07 PM [facility] Glucose 121(H) 70 - 115 mg/dL 03/04/2024 2:07 PM [facility] Calcium 9.1 8.4 - 10.2 mg/dL 03/04/2024 2:07 PM [facility] Protein Total 7.2 6.0 - 8.3 g/dL 03/04/2024 2:07 PM [facility] Albumin 3.6 3.4 - 5.0 g/dL 03/04/2024 2:07 PM [facility] Bilirubin Total 0.7 0.2 - 1.2 mg/dL 03/04/2024 2:07 PM [facility] Alkaline Phosphatase 159(H) 40 - 150 U/L 03/04/2024 2:07 PM [facility] ALT 18 5 - 55 U/L 03/04/2024 2:07 PM [facility] AST 26 5 - 34 U/L 03/04/2024 2:07 PM [facility] Anion Gap 9 6 - 16 03/04/2024 2:07 PM [facility] BUN/Creatinine Ratio 19 7 - 23 03/04/2024 2:07 PM [facility] Osmolality Calculated 268(L) 275 - 295 mOsm/kg 03/04/2024 2:07 PM [facility] Albumin/Globulin Ratio 1.0(L) 1.1 - 2.3 03/04/2024 2:07 PM [facility] eGFR by CKD-EPI 78(L) >=90 mL/min/1.7 3 m2 03/04/2024 2:07 PM [facility] Blood BLOOD SPECIMEN / Unknown Lab Venipuncture / Unknown 03/04/2024 12:46 PM CDT 03/04/2024 1:26 PM CDT [facility] - CHEMISTRY ORDE JUAN Performing Organization Address City/[facility]/ZIP Co de Phone Number [address] [address], [place] [phone] * HEMOGLOBIN A1C (02/05/2024 3:13 AM CDT) Hemoglobin A1c 5.6 <=5.6 % 02/05/2024 9:22 AM T [facility] Estimated Average Glucose 114 mg/dL 02/05/2024 9:22 AM T [facility] Comment: HbA1c Interpretation: Normal : < 5.7% Pre-diabetes: 5.7-6.4% Diabetes: Equal to or greater than 6.5% Test results diagnostic of diabetes should be repeated for confirmation. Treatment target values recommended by ADA and other clinical organizations should be used to evaluate metabolic control in patients. Reference: [place] Diabetes Association, Standards of Care in Diabetes -2020 In patients 70 years and older consider HbA1c target range of 7.0-7.5% (Reference: David Jesus et al. JAMDA. 2012) The Sebia assay for the measurement of HbA1c is a National Glycohemoglobin Standardization Program (NGSP) certified method. Blood BLOOD SPECIMEN / Unknown Venipuncture / Unknown 02/05/2024 3:13 AM CDT 02/05/2024 3:26 AM CDT Reza Guo APRN-CLIMBING GUIDE LAB - CH EMISTRY ORDERABLES Performing Organization Address [facility]/ZIP Co de Phone Number [address] [address], [place] [phone] from Last 3 Months or Most Recently Relevant to Health Maintenance Advance Directives * Full Code (Latest Code Status on File) Date Activated Date Inactivated Comments 02/03/2024 10:42 PM 02/22/2024 5:09 PM Care Teams Planting Material Carrier Relationship Specialty Start Date End Date Renzo He MD [address] [place] [address] PCP - General Family Medicine 02/10/24
--- OUTSIDE RECORDS SUMMARY | 2024-07-02 01:28 | XMS_ITS | Referral Summary ---
Author Organization [facility] Address [address] [facility] [place] [address] Care Team Providers Care Manager Systems Name Role Phone Renzo He MD Primary Care Provider Source Comments [facility],non-[facility] Affiliates and Associated Physician Practices is amultiple site organization consisting of ambulatory clinics and hospital sitesin [place], [place], [place] and [place]. This disclosure is being madepursuant to the Care Everywhere program and may not contain all information available regarding this patient. 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) 06/25/2024 Telephone [facility] - Cardiology [address], [place] [address] [place] [address] Devaughn Glaser RN Question 06/24/2024 Telephone [facility] - Cardiology [address], [place] [address] [place] [address] Enio Sheehan MD Medication Issue 06/17/2024 Travel 06/17/2024 8:30 AM CAD DETAILER Office Visit [facility] Physician [facility] - Cardiology [address] [facility], [place] [address] [place] [address] Enio Sheehan MD Persistent atrial fibrillation (HCC) (Primary Dx); Essential hypertension; 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) 05/21/2024 Refill [facility] Phys[facility] - Cardiothoracic Surgery [address] [place] [address], [place] [address] Tonya Piedra MD Refill Request 04/26/2024 Refill [facility] Physician [facility] - Cardiothoracic Surgery [address] [place] [address], [place] [address] Tonya Piedra MD Refill Request 04/05/2024 Telephone [facility] Physician [facility] - Cardiothoracic Surgery [address] [place] [address], [place] [address] Munira Borja RN Follow-up from Last 3 Months Allergies Active Allergy Reactions Criticality Noted Date [...] 50 MCG/ACT nasal sprayIndications:N maría Congestion,Rhinosi nusitis [place] 2 (two) sprays into each nostril once [...] ascending aorta 02/03/2024 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 Not hard at all 02/19/2024 [facility] [place] of Occupat ional Health - Occupational Stress [...] place to sleep or slept in a detention (including now)? No 02/19/2024 Sex and Gender Information Value Date Recorded Sex Assigned at Not on file Gender Identity Not on file Sexual Orientation Not on file Last Filed Vital Signs Vital Sign Reading Time Taken Comments Blood Pressure 130/84 06/17/2024 8:34 AM CAD DETAILER Pulse 77 06/17/2024 8:34 AM CAD DETAILER Temperature 36.1 ??C (97 ??F) 03/18/2024 1:58 PM CDT Respiratory Rate 18 03/18/2024 1:58 PM CDT Oxygen Saturation 93% 06/17/2024 8:34 AM CAD DETAILER Inhaled Oxygen Concentration 40% 02/13/2024 9 :00 AM CDT Weight 64.4 kg (142 lb) 06/17/2024 8:34 AM CAD DETAILER Height 157.5 cm (5' 2 ) 06/17/2024 8:34 AM CAD DETAILER Body Mass Index 25.97 06/17/2024 8:34 AM CAD DETAILER Functional Status Functional Status Response Date of Assess ment Is person deaf or have serious hearing difficult y? Yes 02/22/2024 Is person blind or have serious difficulty seein g? No 02/22/2024 Does person have serious dif ficulty walking/climbing stairs? Yes 02/22/2024 Does person have difficulty dressing/bathing? No 02/22/2024 Does person have difficulty doing errands alone? Yes 02/22/2024 Cognitive Status Response Date of Assessm ent Does person have difficulty concentrating/remembering/making decisions? No 02/22/2024 Plan of Treatment Upcoming Encounters Date Type Department Care Team (Late st Contact Info) Description 09/16/2024 12:00 PM CDT Appointment [facility] CAT SCAN [address] [place] [address] Tonya Piedra MD [address] [place] [address] Medical Devices Implanted Type Area Pivot End Polisher Device Identifier Shelf Expiration Date Model / Serial / Lot Graft Cv 10mm 30cm [facility] [address] Polystr 2 Vlr - [id number] Implanted:Qty: 1 on 02/03/2024 by Tonya Piedra MD at 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 N/A: Aorta Bard Peripheral Vascular 06/05/2028 [id number] / / [id number] Procedures Procedure Name Priority Date/Time Associated Diagnosis [...] (ABNORMAL) COMPREHENSIVE METABOLIC PANEL (03/04/2024 12:46 PM CDT) BUN 14 7 - 26 mg/dL 03/04/2024 2:07 PM [facility] Creatinine 0.75 0.56 - 0.96 mg/dL 03/04/2024 2:07 PM [facility] Sodium 128(L) 136 - 145 mmol/L 03/04/2024 2:07 PM [facility] Potassium 4.6(H) 3.5 - 4.5 mmol/L 03/04/2024 2:07 PM [facility] Chloride 92(L) 98 - 107 mmol/L 03/04/2024 2:07 PM [facility] CO2 27 22 - 29 mmol/L 03/04/2024 2:07 PM [facility] Glucose 121(H) 70 - 115 mg/dL 03/04/2024 2:07 PM [facility] Calcium 9.1 8.4 - 10.2 mg/dL 03/[facility] Protein Total 7.2 6.0 - 8.3 g/dL 03/04/2024 2:07 PM [facility] Albumin 3.6 3.4 - 5.0 g/dL 03/04/2024 2:07 PM [facility] Bilirubin Total 0.7 0.2 - 1.2 mg/dL 03/04/2024 2:07 PM [facility] Alkaline Phosphatase 159(H) 40 - 150 U/L 03/04/2024 2:07 PM [facility] ALT 18 5 - 55 U/L 03/04/2024 2:07 PM [facility] AST 26 5 - 34 U/L 03/04/2024 2:07 PM [facility] Anion Gap 9 6 - 16 03/04/2024 2:07 PM [facility] BUN/Creatinine Ratio 19 7 - 23 03/04/2024 2:07 PM [facility] Osmolality Calculated 268(L) 275 - 295 mOsm/kg 03/04/2024 2:07 PM [facility] Albumin/Globulin Ratio 1.0(L) 1.1 - 2.3 03/04/2024 2:07 PM [facility] eGFR by CKD-EPI 78(L) >=90 mL/min/1.7 3 m2 03/04/2024 2:07 PM [facility] Blood BLOOD SPECIMEN / Unknown Lab Venipuncture / Unknown 03/04/2024 12:46 PM CDT 03/04/2024 1:26 PM [facility] Riley [facility] - CHEMISTRY [facility] [address] [place] [address], [place] [phone] * HEMOGLOBIN A1C (02/05/2024 3:13 AM [facility]) Hemoglobin A1c 5.6 <=5.6 % 02/05/2024 9:22 AM [facility] Estimated Average Glucose 114 mg/dL 02/05/2024 9:22 AM CDT [facility] Comment: HbA1c Interpretation: Normal : < 5.7% Pre-diabetes: 5.7-6.4% Diabetes: Equal to or greater than 6.5% Test results diagnostic of diabetes should be repeated for confirmation. Treatment target values recommended by ADA and other clinical organizations should be used to evaluate metabolic control in patients. Reference: [place] Diabetes Association, Standards of Care in Diabetes -2020 In patients 70 years and older consider HbA1c target range of 7.0-7.5% (Reference: David Jesus et al. JAMDA. 2012) The Sebia assay for the measurement of HbA1c is a National Glycohemoglobin Standardization Program (NGSP) certified method. Blood BLOOD SPECIMEN / Unknown Venipuncture / Unknown 02/05/2024 3:13 AM CDT 02/05/2024 3:26 AM CDT Reza Guo SHUTTLE OPERATOR-ELECTRICAL INSTALLATION INSPECTOR LAB - CH EMISTRY ORDERABLES [place] [id number] [place] [address] [phone] from Last 3 Months or Most Recently Relevant to Health Maintenance Advance Directives * Full Code (Latest Code Status on File) Date Activated Date Inactivated Comments 02/03/2024 10:42 PM 02/22/2024 5:09 PM Care Teams Manager Systems Relationship Specialty Start Date End Date Renzo He MD [address] [place] [address] PCP - General Family Medicine 02/10/24
--- OUTSIDE RECORDS SUMMARY | 2024-07-02 01:29 | XMS_ITS | Encounter Summary ---
Author Organization [facility] Address [address] [facility] [place] [address] Care Team Providers Care Baseball Pitcher Name Role Phone Renzo He MD Primary Care Provider [phone] Reason for Visit * Reason Onset Date Comments Medication Issue 06/24/2024 Encounter Details Date Type Department Care Team (Late st Contact Info) Description 06/24/2024 Telephone [facility] - Cardiology [address] [facility] [address] [place] [address] Enio Sheehan MD [address] [place] [address] Medication Issue Social History Tobacco Use Types Packs/Day Years Used Date Smoking Tobacco: Never Smokeless Tobacco: Never Alcohol Use Standard Drinks/Week Comments Never 0 [...] and heating? Not hard at all 02/19/2024 [facility] [place] of Occupat ional Health - Occupational Stress [...] place to sleep or slept in a chcf (including now)? No 02/19/2024 Sex and Gender Information Value Date Recorded Sex Assigned at Not on file Gender Identity Not on file Sexual Orientation Not on file documented as of this encounter Functional Status Functional Status Response Date of [...] person have difficulty concentrating/remembering/making decisions? No 02/22/2024 documented as of this encounter Miscellaneous Notes * Telephone Encounter - Valarie Cuevas - 06/24/2024 4:20 PM CST Reason for call: Patient would like a call back regarding her current concerns pertaining her medication she'd recently been prescribed. She stated she's been having a hard time with her oxygen levelup and she also been having trouble keeping a steady heart rate Patient Call Back number: [phone] ER MAKER documented in this encounter Plan of Treatment Upcoming Encounters Date Type Department Care Team (Late st Contact Info) Description 09/16/2024 12:00 PM CDT Appointment [facility] CAT SCAN [address] [place] [phone] Tonya Piedra MD [address] [place] [address] documented as of this encounter Visit Diagnoses Not on filedocumented in this encounter Care Teams Baseball Pitcher Relationship Specialty Start Date End Date Renzo He MD [address] [place] [address] PCP - General Family Medicine 02/10/24 documented as of this encounter
--- OUTSIDE RECORDS SUMMARY | 2024-07-02 01:29 | XMS_ITS | Continuity of Care Document ---
Author Organization [facility] Address [address] [place] [address] Phone Care Team Providers Care Sustainability Executive Director Name Role Phone Ana Mendez Unavailable Unavailable Procedures Procedure Date Eye Exam & Treatment Refraction Eye Exam & Treatment Eye Exam & Treatment Eye Exam & Treatment Eye Exam Established Pt Advance Directives Directive Yes / No Effective Date File Name No Information Encounters Encounter Description Practice Location Reason(s) For Visit Diagnoses Date Provider Providers Copied on Encounter [facility], [address] [place] [address] [address], [place], [place], [id number], tel:[phone] [facility] No Information Sep-2 4-201 0 Vanessa Perze. [address] , [address], [place], [place], [facility], . tel:[phone] [facility], [id number] [place] [address] [address], [place], [place], [id number], [place] tel:[phone] [facility] No Information Sep-1 8-200 9 Krishmarianela Gurmeet. [address], [place], [place], [facility], . tel:[phone] [facility], [address], [place], [place], [id number], tel:[phone] [facility] No Information Sep-1 7-200 8 Krishnasamy Gurmeet. [address] [facility] [address], [place], [address], [place]. tel:[phone] [facility] Eye [facility] [place], [address], [place], [place], [id number], [place] tel:[phone] [facility] No Information Sep- 7200 7 Cori Juan. [address], [place], [place], [id number], [place]. tel:[phone] [facility] Eye [facility] [place], [address], [place], [place], [id number], [place] tel:[phone] [facility] No Information 2200 7 Vanessa Hutchinsn. [address], [place], [address], [place]. tel:[phone] Family History Family Member Type Diagnosis Age At Onset No Information Payers Payer name Insurance type Covered constitution party ID Authoriza tion(s) No Information Social History [...]
--- OUTSIDE RECORDS SUMMARY | 2024-07-02 01:29 | XMS_ITS | Patient Health Summary ---
Author Organization [facility] [employer] Address [address] [place] [address] Care Team Providers Care Supervisor Fine Grading Name Role Phone Renzo He MD Primary Care Provider [phone] Note from [facility],non-owned Affiliates and Associated Physician Practices is amultiple site organization consisting of ambulatory clinics and hospital sitesin [place], [place], [place] and [place]. This disclosure is being madepursuant to the Care Everywhere program and may not contain all information available regarding this patient. Last updated 18.[facility] Allergies * Succinylcholine(Anaphylaxis) -High Criticality Medications * Be aware that medications may not be up to date on this document. Alwaysverify current medications with the patient. * acetaminophen (Tylenol) 500 MG tablet(Started 02/22/2024) Take 1 (one) tablet by mouth every 6 hours as needed Maximum allowable Acetaminophen amount = 4 Grams (4000 mg) / 24 hours. 1 refill by 02/21/2025 * fluticasone propionate (Flonase) 50 MCG/ACT nasal spray(Started 02/22/2024) [place] 2 (two) sprays into each nostril once daily as needed (congestion, rhinosinusitis) Reasons: Inflammation of the Sinuses and the Nose, Stuffy Nose 1 refill by 02/21/2025 * Oxygen(Started 02/22/2024) Oxygen with portability - continuous at 1L/min at rest and 2 L/min with activity via nasal cannula - Estimate length of need (number of months): 3 * apixaban (Eliquis) 2.5 MG tablet(Started 03/11/2024) Take 1 (one) tablet by mouth 2 times daily Reasons: Atrial Fibrillation 3 refills by 03/11/2025 * atorvastatin (Lipitor) 40 MG tablet(Started 05/24/2024) TAKE 1 TABLET BY MOUTH AT BEDTIME * losartan (Cozaar) 25 MG tablet(Started 06/17/2024) Take 1 (one) tablet by mouth once daily 3 refills by 06/17/2025 * carvedilol (Coreg) 3.125 MG tablet(Started 06/28/2024) Take 1 (one) tablet by mouth 2 times daily with morning and evening meal Ended Medications* amiodarone (Cordarone) 200 MG tablet(Started 02/23/2024) (Discontinued) Take 1 (one) tablet by mouth once daily 2 refills by 02/21/2025 * metoprolol succinate XL 24hr (Toprol XL) 25 MG tablet(Started 02/23/2024) (Discontinued) Take 0.5 (one-half) tablet by mouth once daily 2 refills by 02/21/2025 * loratadine (Claritin) 10 MG tablet(Started 02/22/2024)(Discontinued) Take 1 (one) tablet by mouth once daily as needed for Runny Nose 1 refill by 02/21/2025 * hydroCHLOROthiazide (Hydrodiuril) 25 MG tablet(Started 03/11/2024) (Discontinued) Take 1 (one) tablet by mouth once daily 3 refills by 03/11/2025 * carvedilol (Coreg) 3.125 MG tablet(Started 06/17/2024)(Discontinued) Take 0.5 (one-half) tablet by mouth 2 times daily with morning and evening meal 3 refills by 06/17/2025 Active Problems Problem Noted Date Diagnosed Date [...] and heating? Not hard at all 02/19/2024 [facility] - Occupational Stress [...] place to sleep or slept in a fdc (including now)? 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 BACK OPERATOR Height 157.5 cm (5' 2 ) 06/17/2024 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 AM BELT BACK OPERATOR Body Mass Index 25.97 06/17/2024 8:34 AM BELT BACK OPERATOR Medical Devices Implanted Type Area Electrostatic Paint Operator Device Identifier Shelf Expiration Date Model / Serial / Lot Graft Cv 10mm 30cm Hmsh Pl Polystr 2 Vlr - [id number] Implanted:Qty: 1 on 02/03/2024 by Tonya Piedra MD at [facility] N/A: Subclavian Maquet 09/06/2028 [id number] / [id number] Description: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 [place] Cv 6x6in Thk1.65mm Ptfe Ptch Strl Implanted:Qty: 2 on 02/03/2024 by Tonya Piedra MD at [facility] N/A: Aorta [employer] Peripheral [employer] 06/05/2028 [id number] / / [id number] Procedures * CARDIAC REHAB(Performed 04/13/2024) * CBC W/O DIFFERENTIAL(Performed 03/04/2024) Performed for Dissection of aorta, unspecified portion of aorta (HCC) * COMPREHENSIVE METABOLIC PANEL(Performed 03/04/2024) Performed for Dissection of aorta, unspecified portion of aorta (HCC) * XR CHEST 2VW(Performed 03/04/2024) Performed for Dissection of aorta, unspecified portion of aorta (HCC) * CARDIAC EKG ORDER(Performed 03/04/2024) * APHERESIS/TRANSFUSION ORDER(Performed 02/23/2024) * GLUCOSE - POINT OF CARE(Performed 02/22/2024) * GLUCOSE - POINT OF CARE(Performed 02/22/2024) * CBC W AUTO DIFFERENTIAL(Performed 02/22/2024) * BASIC METABOLIC PANEL (CALCIUM TOTAL)(Performed 02/22/2024) * GLUCOSE - POINT OF CARE(Performed 02/21/2024) * GLUCOSE - POINT OF CARE(Performed 02/21/2024) * GLUCOSE - POINT OF CARE(Performed 02/21/2024) * XR CHEST 2VW(Performed 02/21/2024) Performed for Hypoxia * GLUCOSE - POINT OF CARE(Performed 02/21/2024) * PHOSPHORUS BLOOD(Performed 02/21/2024) * MAGNESIUM BLOOD(Performed 02/21/2024) * CBC W AUTO DIFFERENTIAL(Performed 02/21/2024) * BASIC METABOLIC PANEL (CALCIUM TOTAL)(Performed 02/21/2024) * EKG 12-LEAD(Performed 02/21/2024) Performed for Hypoxia * NOCTURNAL DESATURATION STUDY(Performed 02/21/2024) * GLUCOSE - POINT OF CARE(Performed 02/20/2024) * GLUCOSE - POINT OF CARE(Performed 02/20/2024) * GLUCOSE - POINT OF CARE(Performed 02/20/2024) * EKG 12-LEAD(Performed 02/20/2024) Performed for Dissection of aorta, unspecified portion of aorta (HCC) * GLUCOSE - POINT OF CARE(Performed 02/20/2024) * PHOSPHORUS BLOOD(Performed 02/20/2024) * MAGNESIUM BLOOD(Performed 02/20/2024) * CBC W AUTO DIFFERENTIAL(Performed 02/20/2024) * BASIC METABOLIC PANEL (CALCIUM TOTAL)(Performed 02/20/2024) * GLUCOSE - POINT OF CARE(Performed 02/19/2024) * GLUCOSE - POINT OF CARE(Performed 02/19/2024) * GLUCOSE - POINT OF CARE(Performed 02/19/2024) * GLUCOSE - POINT OF CARE(Performed 02/19/2024) * XR CHEST 1VW PORTABLE(Performed 02/19/2024) Performed for Dissection of aorta, unspecified portion of aorta (HCC) * PHOSPHORUS BLOOD(Performed 02/19/2024) * MAGNESIUM BLOOD(Performed 02/19/2024) * CBC W AUTO DIFFERENTIAL(Performed 02/19/2024) * BASIC METABOLIC PANEL (CALCIUM TOTAL)(Performed 02/19/2024) * GLUCOSE - POINT OF CARE(Performed 02/18/2024) * GLUCOSE - POINT OF CARE(Performed 02/18/2024) * GLUCOSE - POINT OF CARE(Performed 02/18/2024) * XR CHEST 1VW PORTABLE(Performed 02/18/2024) Performed for Dissection of aorta, unspecified portion of aorta (HCC) * GLUCOSE - POINT OF CARE(Performed 02/18/2024) * DIFFERENTIAL MANUAL(Performed 02/18/2024) * PHOSPHORUS BLOOD(Performed 02/18/2024) * MAGNESIUM BLOOD(Performed 02/18/2024) * CBC W AUTO DIFFERENTIAL(Performed 02/18/2024) * BASIC METABOLIC PANEL (CALCIUM TOTAL)(Performed 02/18/2024) * GLUCOSE - POINT OF CARE(Performed 02/17/2024) * GLUCOSE - POINT OF CARE(Performed 02/17/2024) * GLUCOSE - POINT OF CARE(Performed 02/17/2024) * XR CHEST 1VW PORTABLE(Performed 02/17/2024) Performed for Dissection of aorta, unspecified portion of aorta (HCC) * PHOSPHORUS BLOOD(Performed 02/17/2024) * MAGNESIUM BLOOD(Performed 02/17/2024) * CBC W AUTO DIFFERENTIAL(Performed 02/17/2024) * BASIC METABOLIC PANEL (CALCIUM TOTAL)(Performed 02/17/2024) * GLUCOSE - POINT OF CARE(Performed 02/16/2024) * GLUCOSE - POINT OF CARE(Performed 02/16/2024) * CT ANGIO AORTA FOR DISSECTION(Performed 02/16/2024) Performed for Dissection of aorta, unspecified portion of aorta (HCC) * EKG 12-LEAD(Performed 02/16/2024) Performed for Dissection of aorta, unspecified portion of aorta (HCC) * GLUCOSE - POINT OF CARE(Performed 02/16/2024) * MAGNESIUM BLOOD(Performed 02/16/2024) * CBC W AUTO DIFFERENTIAL(Performed 02/16/2024) * BASIC METABOLIC PANEL (CALCIUM TOTAL)(Performed 02/16/2024) * GLUCOSE - POINT OF CARE(Performed 02/15/2024) * GLUCOSE - POINT OF CARE(Performed 02/15/2024) * GLUCOSE - POINT OF CARE(Performed 02/15/2024) * EKG 12-LEAD(Performed 02/15/2024) Performed for Dissection of aorta, unspecified portion of aorta (HCC) * GLUCOSE - POINT OF CARE(Performed 02/15/2024) * MAGNESIUM BLOOD(Performed 02/15/2024) * PHOSPHORUS BLOOD(Performed 02/15/2024) * CBC W AUTO DIFFERENTIAL(Performed 02/15/2024) * BASIC METABOLIC PANEL (CALCIUM TOTAL)(Performed 02/15/2024) * GLUCOSE - POINT OF CARE(Performed 02/14/2024) * GLUCOSE - POINT OF CARE(Performed 02/14/2024) * GLUCOSE - POINT OF CARE(Performed 02/14/2024) * GLUCOSE - POINT OF CARE(Performed 02/14/2024) * CBC W AUTO DIFFERENTIAL(Performed 02/14/2024) * BASIC METABOLIC PANEL (CALCIUM TOTAL)(Performed 02/14/2024) * EKG 12-LEAD(Performed 02/14/2024) Performed for Dissection of aorta, unspecified portion of aorta (HCC) * GLUCOSE - POINT OF CARE(Performed 02/13/2024) * GLUCOSE - POINT OF CARE(Performed 02/13/2024) * GLUCOSE - POINT OF CARE(Performed 02/13/2024) * XR CHEST 1VW PORTABLE(Performed 02/13/2024) Performed for Dissection of aorta, unspecified portion of aorta (HCC) * GLUCOSE - POINT OF CARE(Performed 02/13/2024) * EKG 12-LEAD(Performed 02/13/2024) Performed for Dissection of aorta, unspecified portion of aorta (HCC) * PHOSPHORUS BLOOD(Performed 02/13/2024) * MAGNESIUM BLOOD(Performed 02/13/2024) * CBC W AUTO DIFFERENTIAL(Performed 02/13/2024) * BASIC METABOLIC PANEL (CALCIUM TOTAL)(Performed 02/13/2024) * GLUCOSE - POINT OF CARE(Performed 02/12/2024) * GLUCOSE - POINT OF CARE(Performed 02/12/2024) * GLUCOSE - POINT OF CARE(Performed 02/12/2024) * GLUCOSE - POINT OF CARE(Performed 02/12/2024) * EKG 12-LEAD(Performed 02/12/2024) Performed for Dissection of aorta, unspecified portion of aorta (HCC) * XR CHEST 1VW PORTABLE(Performed 02/12/2024) Performed for Dissection of aorta, unspecified portion of aorta (HCC) * PHOSPHORUS BLOOD(Performed 02/12/2024) * MAGNESIUM BLOOD(Performed 02/12/2024) * CBC W AUTO DIFFERENTIAL(Performed 02/12/2024) * BASIC METABOLIC PANEL (CALCIUM TOTAL)(Performed 02/12/2024) * GLUCOSE - POINT OF CARE(Performed 02/11/2024) * GLUCOSE - POINT OF CARE(Performed 02/11/2024) * GLUCOSE - POINT OF CARE(Performed 02/11/2024) * XR CHEST 1VW PORTABLE(Performed 02/11/2024) Performed for Dissection of aorta, unspecified portion of aorta (HCC) * EKG 12-LEAD(Performed 02/11/2024) Performed for Dissection of aorta, unspecified portion of aorta (HCC) * PHOSPHORUS BLOOD(Performed 02/11/2024) * MAGNESIUM BLOOD(Performed 02/11/2024) * CBC W AUTO DIFFERENTIAL(Performed 02/11/2024) * BASIC METABOLIC PANEL (CALCIUM TOTAL)(Performed 02/11/2024) * GLUCOSE - POINT OF CARE(Performed 02/10/2024) * GLUCOSE - POINT OF CARE(Performed 02/10/2024) * GLUCOSE - POINT OF CARE(Performed 02/10/2024) * EKG 12-LEAD(Performed 02/10/2024) Performed for Dissection of aorta, unspecified portion of aorta (HCC) * GLUCOSE - POINT OF CARE(Performed 02/10/2024) * CBC W/O DIFFERENTIAL(Performed 02/10/2024) * XR CHEST 1VW PORTABLE(Performed 02/10/2024) Performed for Dissection of aorta, unspecified portion of aorta (HCC) * PHOSPHORUS BLOOD(Performed 02/10/2024) * MAGNESIUM BLOOD(Performed 02/10/2024) * CBC W AUTO DIFFERENTIAL(Performed 02/10/2024) * CALCIUM IONIZED WHOLE BLOOD(Performed 02/10/2024) * BASIC METABOLIC PANEL (CALCIUM TOTAL)(Performed 02/10/2024) * GLUCOSE - POINT OF CARE(Performed 02/09/2024) * BASIC METABOLIC PANEL (CALCIUM TOTAL)(Performed 02/09/2024) * XR CHEST 1VW PORTABLE(Performed 02/09/2024) Performed for Dissection of aorta, unspecified portion of aorta (HCC) * GLUCOSE - POINT OF CARE(Performed 02/09/2024) * BASIC METABOLIC PANEL (CALCIUM TOTAL)(Performed 02/09/2024) * GLUCOSE - POINT OF CARE(Performed 02/09/2024) * EKG 12-LEAD(Performed 02/09/2024) Performed for Dissection of aorta, unspecified portion of aorta (HCC) * GLUCOSE - POINT OF CARE(Performed 02/09/2024) * XR CHEST 1VW PORTABLE(Performed 02/09/2024) Performed for Dissection of aorta, unspecified portion of aorta (HCC) * PHOSPHORUS BLOOD(Performed 02/09/2024) * MAGNESIUM BLOOD(Performed 02/09/2024) * CBC W AUTO DIFFERENTIAL(Performed 02/09/2024) * CALCIUM IONIZED WHOLE BLOOD(Performed 02/09/2024) * BASIC METABOLIC PANEL (CALCIUM TOTAL)(Performed 02/09/2024) * GLUCOSE - POINT OF CARE(Performed 02/08/2024) * GLUCOSE - POINT OF CARE(Performed 02/08/2024) * GLUCOSE - POINT OF CARE(Performed 02/08/2024) * BASIC METABOLIC PANEL (CALCIUM TOTAL)(Performed 02/08/2024) * GLUCOSE - POINT OF CARE(Performed 02/08/2024) * XR CHEST 1VW PORTABLE(Performed 02/08/2024) Performed for Dissection of aorta, unspecified portion of aorta (HCC) * PHOSPHORUS BLOOD(Performed 02/08/2024) * MAGNESIUM BLOOD(Performed 02/08/2024) * CBC W AUTO DIFFERENTIAL(Performed 02/08/2024) * CALCIUM IONIZED WHOLE BLOOD(Performed 02/08/2024) * BASIC METABOLIC PANEL (CALCIUM TOTAL)(Performed 02/08/2024) * GLUCOSE - POINT OF CARE(Performed 02/07/2024) * GLUCOSE - POINT OF CARE(Performed 02/07/2024) * GLUCOSE - POINT OF CARE(Performed 02/07/2024) * CBC W AUTO DIFFERENTIAL(Performed 02/07/2024) * BASIC METABOLIC PANEL (CALCIUM TOTAL)(Performed 02/07/2024) * GLUCOSE - POINT OF CARE(Performed 02/07/2024) * XR CHEST 1VW PORTABLE(Performed 02/07/2024) Performed for Dissection of aorta, unspecified portion of aorta (HCC) * PHOSPHORUS BLOOD(Performed 02/07/2024) * MAGNESIUM BLOOD(Performed 02/07/2024) * CBC W AUTO DIFFERENTIAL(Performed 02/07/2024) * CALCIUM IONIZED WHOLE BLOOD(Performed 02/07/2024) * BASIC METABOLIC PANEL (CALCIUM TOTAL)(Performed 02/07/2024) * PREPARE PLATELET PHERESIS UNIT(S)(Performed 02/07/2024) * PREPARE FFP UNIT(S)(Performed 02/07/2024) * PREPARE RBC LEUKOREDUCED UNIT(Performed 02/07/2024) * BASIC METABOLIC PANEL (CALCIUM TOTAL)(Performed 02/06/2024) * GLUCOSE - POINT OF CARE(Performed 02/06/2024) * BLOOD GASES ART + COOX PANEL(Performed 02/06/2024) * GLUCOSE - POINT OF CARE(Performed 02/06/2024) * MAGNESIUM BLOOD(Performed 02/06/2024) * CBC W AUTO DIFFERENTIAL(Performed 02/06/2024) * BASIC METABOLIC PANEL (CALCIUM TOTAL)(Performed 02/06/2024) * BLOOD GASES ART + COOX PANEL(Performed 02/06/2024) * GLUCOSE - POINT OF CARE(Performed 02/06/2024) * EKG 12-LEAD(Performed 02/06/2024) Performed for Dissection of aorta, unspecified portion of aorta (HCC) * ECHO LIMITED W CONTRAST(Performed 02/06/2024) Performed for Dissection of aorta, unspecified portion of aorta (HCC) * GLUCOSE - POINT OF CARE(Performed 02/06/2024) * GLUCOSE - POINT OF CARE(Performed 02/06/2024) * GLUCOSE - POINT OF CARE(Performed 02/06/2024) * BLOOD GASES ART + COOX PANEL(Performed 02/06/2024) * PHOSPHORUS BLOOD(Performed 02/06/2024) * MAGNESIUM BLOOD(Performed 02/06/2024) * CBC W AUTO DIFFERENTIAL(Performed 02/06/2024) * CALCIUM IONIZED WHOLE BLOOD(Performed 02/06/2024) * BASIC METABOLIC PANEL (CALCIUM TOTAL)(Performed 02/06/2024) * GLUCOSE - POINT OF CARE(Performed 02/06/2024) * XR CHEST 1VW PORTABLE(Performed 02/06/2024) 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) * GLUCOSE - POINT OF CARE(Performed 02/06/2024) * GLUCOSE - POINT OF CARE(Performed 02/06/2024) * GLUCOSE - POINT OF CARE(Performed 02/06/2024) * MAGNESIUM BLOOD(Performed 02/05/2024) * BASIC METABOLIC PANEL (CALCIUM TOTAL)(Performed 02/05/2024) * BLOOD GASES ART + COOX PANEL(Performed 02/05/2024) * GLUCOSE - POINT OF CARE(Performed 02/05/2024) * GLUCOSE - POINT OF CARE(Performed 02/05/2024) * GLUCOSE - POINT OF CARE(Performed 02/05/2024) * GLUCOSE - POINT OF CARE(Performed 02/05/2024) * GLUCOSE - POINT OF CARE(Performed 02/05/2024) * EKG 12-LEAD(Performed 02/05/2024) Performed for Dissection of aorta, unspecified portion of aorta (HCC) * BLOOD GASES ART + COOX PANEL(Performed 02/05/2024) * GLUCOSE - POINT OF CARE(Performed 02/05/2024) * CALCIUM IONIZED WHOLE BLOOD(Performed 02/05/2024) * MAGNESIUM BLOOD(Performed 02/05/2024) * CREATININE URINE RANDOM(Performed 02/05/2024) * SODIUM URINE RANDOM(Performed 02/05/2024) * GLUCOSE - POINT OF CARE(Performed 02/05/2024) * GLUCOSE - POINT OF CARE(Performed 02/05/2024) * GLUCOSE - POINT OF CARE(Performed 02/05/2024) * CBC W/O DIFFERENTIAL(Performed 02/05/2024) * BLOOD GASES ART + COOX PANEL(Performed 02/05/2024) * GLUCOSE - POINT OF CARE(Performed 02/05/2024) * GLUCOSE - POINT OF CARE(Performed 02/05/2024) * PHOSPHORUS BLOOD(Performed 02/05/2024) * SVO2 FOR RECALIBRATION(Performed 02/05/2024) * CALCIUM IONIZED WHOLE BLOOD(Performed 02/05/2024) * MAGNESIUM BLOOD(Performed 02/05/2024) * BASIC METABOLIC PANEL (CALCIUM TOTAL)(Performed 02/05/2024) * EKG 12-LEAD(Performed 02/05/2024) Performed for Dissection of aorta, unspecified portion of aorta (HCC) * GLUCOSE - POINT OF CARE(Performed 02/05/2024) * SVO2 FOR RECALIBRATION(Performed 02/05/2024) * AMMONIA(Performed 02/05/2024) * CALCIUM IONIZED WHOLE BLOOD(Performed 02/05/2024) * BLOOD GASES ART + COOX PANEL(Performed 02/05/2024) * GLUCOSE - POINT OF CARE(Performed 02/05/2024) * GLUCOSE - POINT OF CARE(Performed 02/05/2024) * GLUCOSE - POINT OF CARE(Performed 02/05/2024) * XR CHEST 1VW PORTABLE(Performed 02/05/2024) 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) * GLUCOSE - POINT OF CARE(Performed 02/05/2024) * GLUCOSE - POINT OF CARE(Performed 02/05/2024) * TSH REFLEX FREE T4(Performed 02/05/2024) * HEMOGLOBIN A1C(Performed 02/05/2024) * LIPID PROFILE(Performed 02/05/2024) * SVO2 FOR RECALIBRATION(Performed 02/05/2024) * PHOSPHORUS BLOOD(Performed 02/05/2024) * MAGNESIUM BLOOD(Performed 02/05/2024) * CBC W AUTO DIFFERENTIAL(Performed 02/05/2024) * CALCIUM IONIZED WHOLE BLOOD(Performed 02/05/2024) * BASIC METABOLIC PANEL (CALCIUM TOTAL)(Performed 02/05/2024) * BLOOD GASES ART + COOX PANEL(Performed 02/05/2024) * GLUCOSE - POINT OF CARE(Performed 02/05/2024) * GLUCOSE - POINT OF CARE(Performed 02/05/2024) * GLUCOSE - POINT OF CARE(Performed 02/05/2024) * GLUCOSE - POINT OF CARE(Performed 02/04/2024) * GLUCOSE - POINT OF CARE(Performed 02/04/2024) * PHOSPHORUS BLOOD(Performed 02/04/2024) * MAGNESIUM BLOOD(Performed 02/04/2024) * CBC W AUTO DIFFERENTIAL(Performed 02/04/2024) * BASIC METABOLIC PANEL (CALCIUM TOTAL)(Performed 02/04/2024) * GLUCOSE - POINT OF CARE(Performed 02/04/2024) * GLUCOSE - POINT OF CARE(Performed 02/04/2024) * GLUCOSE - POINT OF CARE(Performed 02/04/2024) * GLUCOSE - POINT OF CARE(Performed 02/04/2024) * GLUCOSE - POINT OF CARE(Performed 02/04/2024) * GLUCOSE - POINT OF CARE(Performed 02/04/2024) * CARDIAC EKG ORDER(Performed 02/04/2024) * GLUCOSE - POINT OF CARE(Performed 02/04/2024) * BLOOD GASES ART + COOX PANEL(Performed 02/04/2024) * GLUCOSE - POINT OF CARE(Performed 02/04/2024) * PHOSPHORUS BLOOD(Performed 02/04/2024) * MAGNESIUM BLOOD(Performed 02/04/2024) * BASIC METABOLIC PANEL (CALCIUM TOTAL)(Performed 02/04/2024) * CBC W/O DIFFERENTIAL(Performed 02/04/2024) * GLUCOSE - POINT OF CARE(Performed 02/04/2024) * GLUCOSE - POINT OF CARE(Performed 02/04/2024) * GLUCOSE - POINT OF CARE(Performed 02/04/2024) * GLUCOSE - POINT OF CARE(Performed 02/04/2024) * BLOOD GASES ART + COOX PANEL(Performed 02/04/2024) * GLUCOSE - POINT OF CARE(Performed 02/04/2024) * XR CHEST 1VW PORTABLE(Performed 02/04/2024) 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) * GLUCOSE - POINT OF CARE(Performed 02/04/2024) * LACTIC ACID BLOOD(Performed 02/04/2024) * SVO2 FOR RECALIBRATION(Performed 02/04/2024) * PHOSPHORUS BLOOD(Performed 02/04/2024) * MAGNESIUM BLOOD(Performed 02/04/2024) * CBC W AUTO DIFFERENTIAL(Performed 02/04/2024) * CALCIUM IONIZED WHOLE BLOOD(Performed 02/04/2024) * BASIC METABOLIC PANEL (CALCIUM TOTAL)(Performed 02/04/2024) * BLOOD GASES ART + COOX PANEL(Performed 02/04/2024) * GLUCOSE - POINT OF CARE(Performed 02/04/2024) * GLUCOSE - POINT OF CARE(Performed 02/04/2024) * EKG 12-LEAD(Performed 02/04/2024) 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) * GLUCOSE - POINT OF CARE(Performed 02/04/2024) * XR ABDOMEN KUB PORTABLE(Performed 02/03/2024) 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) * XR CHEST 1VW PORTABLE(Performed 02/03/2024) 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) * PREPARE RBC LEUKOREDUCED UNIT(Performed 02/03/2024) * SVO2 FOR RECALIBRATION(Performed 02/03/2024) * BLOOD GASES ART + COOX PANEL(Performed 02/03/2024) * LACTIC ACID BLOOD(Performed 02/03/2024) * PTT SLH(Performed 02/03/2024) * PT-INR [facility](Performed 02/03/2024) * PHOSPHORUS BLOOD(Performed 02/03/2024) * MAGNESIUM BLOOD(Performed 02/03/2024) * FIBRINOGEN ACTIVITY(Performed 02/03/2024) * CBC W AUTO DIFFERENTIAL(Performed 02/03/2024) * CALCIUM IONIZED WHOLE BLOOD(Performed 02/03/2024) * COMPREHENSIVE METABOLIC PANEL(Performed 02/03/2024) * BLOOD GAS+COOX+LYTES+METAB ARTERIAL POCT(Performed 02/03/2024) * XR CHEST 1VW PORTABLE(Performed 02/03/2024) 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) * TRANSFUSE RED BLOOD CELL LEUKOREDUCED UNIT(S)(Performed 02/03/2024) * TRANSFUSE RED BLOOD CELL LEUKOREDUCED UNIT(S)(Performed 02/03/2024) * TRANSFUSE RED BLOOD CELL LEUKOREDUCED UNIT(S)(Performed 02/03/2024) * BLOOD GAS+COOX+LYTES+METAB ARTERIAL POCT(Performed 02/03/2024) * PTT [facility](Performed 02/03/2024) 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) * CBC W/O DIFFERENTIAL(Performed 02/03/2024) 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) * TEG 6 GLOBAL HEMOSTASIS(Performed 02/03/2024) 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) * FIBRINOGEN ACTIVITY(Performed 02/03/2024) 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) * PT-INR [facility](Performed 02/03/2024) 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) * TRANSFUSE PLATELET PHERESIS UNIT(S)(Performed 02/03/2024) * TRANSFUSE CRYOPRECIPITATE UNIT(S)(Performed 02/03/2024) * TRANSFUSE CRYOPRECIPITATE UNIT(S)(Performed 02/03/2024) * TRANSFUSE PLATELET PHERESIS UNIT(S)(Performed 02/03/2024) * PREPARE CRYOPRECIPITATE UNIT(S)(Performed 02/03/2024) * ACT PLUS - POCT ([facility])(Performed 02/03/2024) * TRANSFUSE FRESH FROZEN PLASMA UNIT(S)(Performed 02/03/2024) * TRANSFUSE RED BLOOD CELL LEUKOREDUCED UNIT(S)(Performed 02/03/2024) * TRANSFUSE RED BLOOD CELL LEUKOREDUCED UNIT(S)(Performed 02/03/2024) * PREPARE PLATELET PHERESIS UNIT(S)(Performed 02/03/2024) * BLOOD GAS+COOX+LYTES+METAB ARTERIAL POCT(Performed 02/03/2024) * TRANSFUSE FRESH FROZEN PLASMA UNIT(S)(Performed 02/03/2024) * TRANSFUSE RED BLOOD CELL LEUKOREDUCED UNIT(S)(Performed 02/03/2024) * TRANSFUSE PLATELET PHERESIS UNIT(S)(Performed 02/03/2024) * TRANSFUSE PLATELET PHERESIS UNIT(S)(Performed 02/03/2024) * TRANSFUSE CRYOPRECIPITATE UNIT(S)(Performed 02/03/2024) * TRANSFUSE CRYOPRECIPITATE UNIT(S)(Performed 02/03/2024) * TRANSFUSE FRESH FROZEN PLASMA UNIT(S)(Performed 02/03/2024) * ACT PLUS - POCT ([facility])(Performed 02/03/2024) * BLOOD GAS+COOX+LYTES+METAB ARTERIAL POCT(Performed 02/03/2024) * TRANSFUSE FRESH FROZEN PLASMA UNIT(S)(Performed 02/03/2024) * TRANSFUSE RED BLOOD CELL LEUKOREDUCED UNIT(S)(Performed 02/03/2024) * TRANSFUSE RED BLOOD CELL LEUKOREDUCED UNIT(S)(Performed 02/03/2024) * PATHOLOGY TISSUE(Performed 02/03/2024) Performed for Dissection of aorta, unspecified portion of aorta (HCC) * ACT PLUS - POCT ([facility])(Performed 02/03/2024) * BLOOD GAS+COOX+LYTES+METAB ARTERIAL POCT(Performed 02/03/2024) * TRANSFUSE RED BLOOD CELL LEUKOREDUCED UNIT(S)(Performed 02/03/2024) * TRANSFUSE RED BLOOD CELL LEUKOREDUCED UNIT(S)(Performed 02/03/2024) * PREPARE CRYOPRECIPITATE UNIT(S)(Performed 02/03/2024) * ACT PLUS - POCT (SS)(Performed 02/03/2024) * PREPARE PLATELET PHERESIS UNIT(S)(Performed 02/03/2024) * PREPARE FFP UNIT(S)(Performed 02/03/2024) * PREPARE FFP UNIT(S)(Performed 02/03/2024) * BLOOD GAS+COOX+LYTES+METAB ARTERIAL POCT(Performed 02/03/2024) * PREPARE RBC LEUKOREDUCED UNIT(Performed 02/03/2024) * TRANSFUSE RED BLOOD CELL LEUKOREDUCED UNIT(S)(Performed 02/03/2024) * TRANSFUSE RED BLOOD CELL LEUKOREDUCED UNIT(S)(Performed 02/03/2024) * ACT PLUS - POCT (SS)(Performed 02/03/2024) * BLOOD GAS+COOX+LYTES+METAB ARTERIAL POCT(Performed 02/03/2024) * CENTRAL LINE NOTE(Performed 02/03/2024) * ARTERIAL LINE NOTE(Performed 02/03/2024) * ENDOTRACHEAL TUBE NOTE(Performed 02/03/2024) * ACT PLUS - POCT (SS)(Performed 02/03/2024) * BLOOD GAS+COOX+LYTES+METAB ARTERIAL POCT(Performed 02/03/2024) * BLOOD GAS ART+LYTES+METAB+COOX POC NOTIF(Performed 02/03/2024) * BLOOD GAS NOEL+LYTES+METAB+COOX POC NOTIF(Performed 02/03/2024) 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) * WI -AORT GRF F/AORTIC DSJ(Performed 02/03/2024) Performed for Dissection of aorta, unspecified portion of aorta (HCC) * BLOOD TYPE VERIFICATION(Performed 02/03/2024) * TROPONIN-I HIGH SENSITIVE REFLEX 1HOUR(Performed 02/03/2024) * BLOOD GAS NOEL+LYTES+METAB+COOX POC NOTIF(Performed 02/03/2024) * BLOOD GAS ART+LYTES+METAB+COOX POC NOTIF(Performed 02/03/2024) * EKG 12-LEAD(Performed 02/03/2024) 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 Scanned Document SCANNING ONLY * (ABNORMAL) CBC W/O DIFFERENTIAL (03/04/2024 12:46 PM CDT) Only the most recent of5 resultswithin the time period is included. WBC 9.2 4.0 - 10.7 x10E9/L 03/04/2024 1:32 PM [facility] RBC Count 4.22 3.90 - 5.20 x10E12/L 03/04/2024 1:32 PM [facility] Hemoglobin 12.7 11.9 - 15.8 g/dL 03/04/2024 1:32 PM [facility] Hematocrit 39.2 34.8 - 46.1 % 03/04/2024 1:32 PM [facility] MCV 92.9 80.0 - 98.0 fL 03/04/2024 1:32 PM [facility] MCH 30.1 26.7 - 33.6 pg 03/04/2024 1:32 PM [facility] MCHC 32.4 31.7 - 36.3 g/dL 03/04/2024 1:32 PM [facility] RDW-CV 16.5(H) 11.3 - 14.8 % 03/04/2024 1:32 PM [facility] Platelet Count 236 150 - 420 x10E9/L 03/04/2024 1:32 PM [facility] MPV 9.5 7.8 - 11.4 fL 03/04/2024 1:32 PM [facility] Blood BLOOD SPECIMEN / Unknown Lab Venipuncture / Unknown 03/04/2024 12:46 PM CDT 03/04/2024 1:26 PM CDT Riley CONNOLLY LAB - HEMATOLOGY ORD ERABLES [facility] [address] [place] [address], [facility] [phone] * (ABNORMAL) COMPREHENSIVE METABOLIC PANEL (03/04/2024 12:46 PM CDT) Only the most recent of3 resultswithin the time period is included. BUN 14 7 - 26 mg/dL 03/04/2024 2:07 PM [facility] Creatinine 0.75 0.56 - 0.96 mg/dL 03/04/2024 2:07 PM [facility] Sodium 128(L) 136 - 145 mmol/L 03/04/2024 2:07 PM [facility] Potassium 4.6(H) 3.5 - 4.5 mmol/L 03/04/2024 2:07 PM [facility] Chloride 92(L) 98 - 107 mmol/L 03/04/2024 2:07 PM [facility] CO2 27 22 - 29 mmol/L 03/04/2024 2:07 PM [facility] Glucose 121(H) 70 - 115 mg/dL 03/04/2024 2:07 PM [facility] Calcium 9.1 8.4 - 10.2 mg/dL 03/04/2024 2:07 PM [facility] Protein Total 7.2 6.0 - 8.3 g/dL 03/04/2024 2:07 PM [facility] Albumin 3.6 3.4 - 5.0 g/dL 03/04/2024 2:07 PM [facility] Bilirubin Total 0.7 0.2 - 1.2 mg/dL 03/04/2024 2:07 PM [facility] Alkaline Phosphatase 159(H) 40 - 150 U/L 03/04/2024 2:07 PM [facility] ALT 18 5 - 55 U/L 03/04/2024 2:07 PM [facility] AST 26 5 - 34 U/L 03/04/2024 2:07 PM [facility] Anion Gap 9 6 - 16 03/04/2024 2:07 PM [facility] BUN/Creatinine Ratio 19 7 - 23 03/04/2024 2:07 PM [facility] Osmolality Calculated 268(L) 275 - 295 mOsm/kg 03/04/2024 2:07 PM [facility] Albumin/Globulin Ratio 1.0(L) 1.1 - 2.3 03/04/2024 2:07 PM [facility] eGFR by CKD-EPI 78(L) >=90 mL/min/1.7 3 m2 03/04/2024 2:07 PM [facility] Blood BLOOD SPECIMEN / Unknown Lab Venipuncture / Unknown 03/04/2024 12:46 PM CDT 03/04/2024 1:26 PM CDT Riley CONNOLLY LAB - CHEMISTRY PATRICIA Bryant Organization Address City/State/ZIP Co de Phone Number [facility] [address] [place] [address], [facility] [phone] * XR Chest 2Vw (03/04/2024 12:29 PM CDT) Only the most recent of2 resultswithin the time period is included. Anatomical Region Laterality Modality Chest Digital Radiogra phy 03/04/2024 10:3 3 PM CDT Narrative 03/04/2024 10:35 PM CDT EXAMINATION: XR CHEST 2VW HISTORY: I71.00: Dissection of aorta, unspecified portion of aorta (HCC) COMPARISON: Multiple priors, most recent chest radiograph dated 02/21/2024 FINDINGS/IMPRESSION: Lines/Tubes/Devices: *Median sternotomy wires are stable. *Cholecystectomy clips are seen in the right upper quadrant. *Surgical natalie superimpose the right shoulder/lung. Suggested small/trace bilateral pleural effusions and atelectatic changes. No pneumothorax is identified. Cardiac size is normal. Aortic atherosclerosis is noted. The superior mediastinal contours are within normal limits. No acute osseous abnormality is identified. No free air is seen under the diaphragm. > Interpreting Provider: Mathew Randall MD on 03/04/2024 10:35 PM Procedure Note Mathew Randall MD - 03/04/2024 EXAMINATION: XR CHEST 2VW HISTORY: I71.00: Dissection of aorta, unspecified portion of aorta (HCC) COMPARISON: Multiple priors, most recent chest radiograph dated02/21/2024 FINDINGS/IMPRESSION: Lines/Tubes/Devices: *Median sternotomy wires are stable. *Cholecystectomy clips are seen in the right upper quadrant. *Surgical natalie superimpose the right shoulder/lung. Suggested small/trace bilateral pleural effusions and atelectaticchanges. No pneumothorax is identified. Cardiac size is normal. Aortic atherosclerosis is noted. The superior mediastinal contours are within normal limits. No acute osseous abnormality is identified. No free airis seen under the diaphragm. > Interpreting Provider: Mathew Randall MD on 03/04/2024 10:35 PM Riley CONNOLLY DIAGNOSTIC IMAGING O RDERABLES * CARDIAC EKG ORDER (03/04/2024) Only the most recent of2 resultswithin the time period is included. 03/04/2024 Narrative Rebecca Araya - 03/04/2024 Ordered by an unspecified provider. Scanned Document CARDIAC SERVICES ORD ERABLES * APHERESIS/TRANSFUSION ORDER (02/23/2024 2:23 PM CDT) Narrative 02/23/2024 2:23 PM CDT Ordered by an unspecified provider. Scanned Document NURSING - VITAL SIGN S AND ASSESSMENT * (ABNORMAL) GLUCOSE - POINT OF CARE (02/22/2024 1:05 PM CDT) Only the most recent of108 resultswithin the time period is included. Pathologist [facility] Glucose WB/POC 146(H) 70 - 115 mg/dL 02/22/2024 1:06 PM [facility] Specimen Type Cap Fingerstick 2023 1:06 PM [facility] Blood BLOOD SPECIMEN / Unknown 02/22/2024 1:05 PM CDT 02/22/2024 1:06 PM CDT Tonya Piedra MD LAB - POINT OF CARE ORDERABLES [facility] [address] [place] [address], [facility] [phone] * (ABNORMAL) CBC W AUTO DIFFERENTIAL (02/22/2024 3:25 AM CDT) Only the most recent of24 resultswithin the time period is included. [facility] WBC 10.3 4.0 - 10.7 x10E9/L 02/22/2024 4:21 AM [facility] RBC Count 3.84(L) 3.90 - 5.20 x10E12/L 02/22/2024 4:21 AM [facility] Hemoglobin 11.3(L) 11.9 - 15.8 g/dL 02/22/2024 4:21 AM [facility] Hematocrit 35.5 34.8 - 46.1 % 02/22/2024 4:21 AM [facility] MCV 92.4 80.0 - 98.0 fL 02/22/2024 4:21 AM [facility] MCH 29.4 26.7 - 33.6 pg 02/22/2024 4:21 AM [facility] MCHC 31.8 31.7 - 36.3 g/dL 02/22/2024 4:21 AM [facility] RDW-CV 16.4(H) 11.3 - 14.8 % 02/22/2024 4:21 AM [facility] Platelet Count 220 150 - 420 x10E9/L 02/22/2024 4:21 AM [facility] MPV 10.2 7.8 - 11.4 fL 02/22/2024 4:21 AM [facility] Neutrophil % 68.1 41.0 - 74.0 % 02/22/2024 4:21 AM [facility] Lymphocyte % 9.9(L) 17.0 - 47.0 % 02/22/2024 4:21 AM [facility] Monocyte % 13.2(H) 3.0 - 11.0 % 02/22/2024 4:21 AM [facility] Eosinophil % 6.9 0.0 - 7.0 % 02/22/2024 4:21 AM [facility] Basophil % 1.1 0.0 - 1.6 % 02/22/2024 4:21 AM [facility] Immature Granulocytes % 0.8 0.0 - 1.0 % 02/22/2024 4:21 AM [facility] Neutrophil Absolute 7.05 1.60 - 7.50 x10E9/L 02/22/2024 4:21 AM [facility] Lymphocyte Absolute 1.02 1.00 - 4.40 x10E9/L 02/22/2024 4:21 AM [facility] Monocyte Absolute 1.36(H) 0.15 - 1.00 x10E9/L 02/22/2024 4:21 AM [facility] Eosinophil Absolute 0.71(H) 0.00 - 0.60 x10E9/L 02/22/2024 4:21 AM [facility] Basophil Absolute 0.11 0.00 - 0.13 x10E9/L 02/22/2024 4:21 AM [facility] Blood BLOOD SPECIMEN / Unknown Lab Venipuncture / Unknown 02/22/2024 3:25 AM CDT 02/22/2024 4:09 AM T Frances Diaz MOBILE EQUIPMENT MECHANIC-INDUSTRIAL RELATIONS DIRECTOR LAB - HEMATOLOGY ORDERABLES [facility] [address] [place] [address], [facility] [phone] * (ABNORMAL) BASIC METABOLIC PANEL (CALCIUM TOTAL) (02/22/2024 3:25 AM CDT) Only the most recent of29 resultswithin the time period is included. BUN 21 7 - 26 mg/dL 02/22/2024 5:27 AM [facility] Creatinine 0.89 0.56 - 0.96 mg/dL 02/22/2024 5:27 AM [facility] Sodium 137 136 - 145 mmol/L 02/22/2024 5:27 AM [facility] Potassium 4.9(H) 3.5 - 4.5 mmol/L 02/22/2024 5:27 AM [facility] Chloride 101 98 - 107 mmol/L 02/22/2024 5:27 AM [facility] CO2 28 22 - 29 mmol/L 02/22/2024 5:27 AM [facility] Glucose 139(H) 70 - 115 mg/dL 02/22/2024 5:27 AM [facility] Calcium 8.6 8.4 - 10.2 mg/dL 02/22/2024 5:27 AM [facility] Anion Gap 8 6 - 16 02/22/2024 5:27 AM [facility] BUN/Creatinine Ratio 24(H) 7 - 23 02/22/2024 5:27 AM [facility] Osmolality Calculated 289 275 - 295 mOsm/kg 02/22/2024 5:27 AM [facility] eGFR by CKD-EPI 64(L) >=90 mL/min/1.7 3 m2 02/22/2024 5:27 AM [facility] Blood BLOOD SPECIMEN / Unknown Lab Venipuncture / Unknown 02/22/2024 3:25 AM CDT 02/22/2024 4:09 AM CDT Frances Diaz APRN-INDUSTRIAL RELATIONS DIRECTOR LAB - CHEMISTRY ORDERABLES [facility] [address] [place] [address], [facility] [phone] * PHOSPHORUS BLOOD (02/21/2024 6:31 AM CDT) Only the most recent of20 resultswithin the time period is included. Phosphorus 2.9 2.9 - 5.1 mg/dL 02/21/2024 7:21 AM CDT [facility] Blood BLOOD SPECIMEN / Unknown Lab Venipuncture / Unknown 02/21/2024 6:31 AM CDT 02/21/2024 6:50 AM CDT Reza Guo [facility] [employer] [facility] EMISTRY ORDERABLES Performing Organization Address [facility] Co de Phone Number [address] [address], [facility] [phone] * MAGNESIUM BLOOD (02/21/2024 6:31 AM CDT) Only the most recent of24 resultswithin the time period is included. Magnesium 2.0 1.6 - 2.6 mg/dL 02/21/2024 7:21 AM CDT [facility] Blood BLOOD SPECIMEN / Unknown Lab Venipuncture / Unknown 02/21/2024 6:31 AM CDT 02/21/2024 6:50 AM CDT [facility] [employer] [facility] EMISTRY ORDERABLES Performing Organization Address [facility] de Phone Number [address] [address], [facility] [phone] * EKG 12-LEAD (02/21/2024 4:55 AM CDT) Only the most recent of15 resultswithin the time period is included. Ventricular Rate 61 BPM [facility] MUSE Atrial Rate 61 BPM [facility] MUSE P-R Interval 210 ms [facility] QRS Duration ms 150 ms [facility] Q-T Interval ms 504 ms [facility] QTC Calculation (Bezet) 507 ms [facility] MUSE Calculated P [place] 70 degrees [facility] MUSE Calculated R [place] 5 degrees [facility] M[facility] Calculated T [place] -21 degrees [facility] MUSE Interpretation EKG SINUS RHYTHM WITH 1ST DEGREE A-V BLOCK RIGHT BUNDLE BRANCH BLOCK INFERIOR INFARCT , AGE UNDETERMINED T WAVE ABNORMALITY, CONSIDER LATERAL ISCHEMIA ABNORMAL ECG NO PREVIOUS ECGS AVAILABLE Confirmed by VICKI MONTEMAYOR MD ([id number]) on 02/29/2024 11:39:02 PM [facility] MUSE 02/21/2024 4:55 AM CDT 02/29/2024 11:39 PM CDT Riley CONNOLLY ECG ORDERABLES [facility] MUSE * XR Chest 1Vw Portable (02/19/2024 4:50 AM CDT) Only the most recent of17 resultswithin the time period is included. Anatomical Region Laterality Modality Chest Radiographic Annette ging 02/20/2024 9:21 AM CDT Narrative 02/20/2024 11:28 AM CDT PROCEDURE: ??XR CHEST 1VW PORTABLE, DATE/TIME OF EXAM: ??02/19/2024 4:51 AM, LOCATION ??[facility] INDICATION: I71.00: Dissection of aorta, unspecified portion of aorta (HCC) ADDITIONAL CLINICAL INFORMATION: Ordering Provider Reason For Exam: ??respiratory failure COMPARISON: Chest radiograph 02/18/2024 FINDINGS/IMPRESSION: Similar bilateral pleural effusions and bibasilar atelectasis/airspace disease, right greater than left. Unchanged right diaphragm elevation. No pneumothorax is visible. The cardiomediastinal silhouette is obscured. > Dictated by Anaya CURRY, FR ??(president [employer]). I, Marielle Baxter MD have personally reviewed and interpreted this examination/study. > Interpreting Provider: Marielle Baxter MD on 02/20/2024 11:28 AM Procedure Note Marielle Baxter MD - 02/20/2024 PROCEDURE: XR CHEST 1VW PORTABLE, DATE/TIME OF EXAM: 02/19/2024 4:51AM, LOCATION [facility] INDICATION: I71.00: Dissection of aorta, unspecified portion of aorta (HCC) ADDITIONAL CLINICAL INFORMATION: Ordering Provider Reason For Exam: respiratory failure COMPARISON: Chest radiograph 02/18/2024 FINDINGS/IMPRESSION: Similar bilateral pleural effusions and bibasilar atelectasis/airspace disease, right greater than left. Unchanged right diaphragm elevation.No pneumothorax is visible. The cardiomediastinal silhouette is obscured. > Dictated by Anaya CURRY, [facility] (president ergonomic consulting). I, Marielle Baxter MD have personally reviewed and interpreted this examination/study. > Interpreting Provider: Marielle Baxter MD on 02/20/2024 11:28 AM Reza Guo MOBILE EQUIPMENT MECHANIC-INDUSTRIAL RELATIONS DIRECTOR DIAGNOST IC IMAGING ORDERABLES * (ABNORMAL) DIFFERENTIAL MANUAL (02/18/2024 4:00 AM CDT) Neutrophil % 76(H) 41 - 74 % 02/18/2024 5:47 AM [facility] Lymphocyte % 10(L) 17 - 47 % 02/18/2024 5:47 AM [facility] Monocyte % 9 3 - 11 % 02/18/2024 5:47 AM [facility] Eosinophil % 4 0 - 7 % 02/18/2024 5:47 AM [facility] Basophil % 1 0 - 2 % 02/18/2024 5:47 AM [facility] Neutrophil Absolute 10.87(H) 1.60 - 7.50 x10E9/L 02/18/2024 5:47 AM [facility] Lymphocyte Absolute 1.43 1.00 - 4.40 x10E9/L 02/18/2024 5:47 AM [facility] Monocyte Absolute 1.29(H) 0.15 - 1.00 x10E9/L 02/18/2024 5:47 AM [facility] Eosinophil Absolute 0.57 0.00 - 0.60 x10E9/L 02/18/2024 5:47 AM [facility] Basophil Absolute 0.14(H) 0.00 - 0.13 x10E9/L 02/18/2024 5:47 AM [facility] RBC Morphology REVIEWED 02/18/2024 5:47 AM [facility] Microcytosis MODERATE(A) (none) 02/18/2024 5:47 AM CDT [facility] Blood BLOOD SPECIMEN / Unknown Venipuncture / Unknown 02/18/2024 4:00 AM CDT 02/18/2024 4:16 AM CDT Frances Diaz MOBILE EQUIPMENT MECHANIC-INDUSTRIAL RELATIONS DIRECTOR LAB - HEMATOLOGY ORDERABLES Performing Organization Address City/State/[facility] Co de Phone Number [facility] [address] [place] [address], [facility] [phone] * CT Angio Aorta for Dissection (02/16/2024 1:59 PM CDT) Anatomical Region Laterality Modality Abdomen Computed Tomogra phy 02/16/2024 2:5 4 PM CDT Impressions 02/16/2024 7:42 PM CDT IMPRESSION: 1.Postsurgical changes of type A aortic dissection supra coronary repair with graft with small volume hemorrhagic collection surrounding the thoracic aorta. 2.Small bilateral pleural effusions and fissural edema with mild diffuse anasarca may secondary to volume status. 3.Nodular liver surface concerning for hepatic parenchymal disease. > Dictated by Luis Angel Humphrey MD (president ergonomic consulting). I, Nakul Almanzar MD have personally reviewed and interpreted this examination/study. > Interpreting Provider: Nakul Almanzar MD on 02/16/2024 7:42 PM Narrative 02/16/2024 7:42 PM CDT PROCEDURE: ??CT ANGIO AORTA FOR DISSECTION, DATE/TIME OF EXAM: ??02/16/2024 1:59 PM, LOCATION ??[facility] INDICATION: I71.00: Dissection of aorta, unspecified portion of aorta (HCC) Ordering Provider Reason For Exam: ??s/p aortic arch repair w/ hemashield graft; back pain; eval for type B aneurysm COMPARISON: None. TECHNIQUE: CT of the chest, abdomen, and pelvis was performed prior to and following the uneventful administration of 100 mL of Isovue 370 intravenous contrast according to an angiogram dissection protocol. Three dimensional postprocessing was performed by the technologist and sent to the workstation for review. FINDINGS: Thoracic aorta: Postsurgical changes of type A aortic dissection repair with graft with slightly greater than simple fluid attenuation small volume fluid collection surrounding the thoracic aorta. No contrast extravasation is present to suggest active arterial bleeding. No intimal flap, intramural hematoma, penetrating atherosclerotic ulcer, or aneurysm. Thoracic aortic branches: Subclavian arteries: Patent without significant focal stenosis. Linear hypoattenuation across the left subclavian artery (series 6, image 55) represents beam artifact from external chest wall leads. Brachiocephalic artery: Patent without significant focal stenosis. Pulmonary artery: Normal. Coronary arteries: Atherosclerotic. Abdominal aorta: No aortic dissection, intramural hematoma, penetrating atherosclerotic ulcer, or aneurysm. Abdominal aortic branches: Celiac axis: Atherosclerotic at its origin but patent without significant focal stenosis. Superior mesenteric artery: Atherosclerotic at its origin but patent without significant focal stenosis. Inferior mesenteric artery: Patent without significant focal stenosis. Right renal artery: Atherosclerotic at its origin but patent without significant focal stenosis. Left renal artery: Atherosclerotic at its origin but patent without significant focal stenosis. Right common iliac artery: Atherosclerotic but patent without significant focal stenosis. Right internal iliac artery: Atherosclerotic but patent without significant focal stenosis. Right external iliac artery: Patent without significant focal stenosis. Left common iliac artery: Atherosclerotic but patent without significant focal stenosis. Left internal iliac artery: Atherosclerotic but patent without significant focal stenosis. Left external iliac artery: Patent without significant focal stenosis. Chest: Lower Neck and Axillae: Normal. Lungs: Mild centrilobular emphysema. Small bilateral pleural effusions with fissural edema and associated atelectasis. Small groundglass and consolidative opacities in right middle lobe and lingula may represent atelectasis or calcifications. No pneumothorax is present. Heart and Pericardium: The cardiac chambers are normal in size. Trace volume pericardial effusion is present. Mediastinum and Miriam: Small volume of mediastinal hemorrhage with a few small foci of air are likely secondary to recent surgery. Abdomen/pelvis: Liver: Multiple hypoattenuating hepatic lesions with simple fluid attenuation, largest measuring up to 1.6 cm in hepatic segment 3 (series 6, image 224) are indeterminate likely represent hepatic cysts. The liver surface is nodular. Gallbladder and Bile Ducts: The gallbladder is absent. No biliary dilatation is present. Spleen: Multiple calcified granulomas are noted in the spleen, likely sequelae of prior granulomatous disease. Pancreas: Is mildly atrophic. Punctate calcification within distal pancreatic body likely represents sequela of previous pancreatitis. Adrenals: Normal. Kidneys: A 12.3 cm simple fluid density cyst within the inferior region of right kidney. No radiopaque stones or hydronephrosis present. Gastrointestinal: The stomach and visualized loops of small bowel are unremarkable. Colonic diverticulosis without evidence of diverticulitis is seen. There is a right inguinal hernia containing bowel loops without obstruction. Mesentery/Peritoneum/Retroperitoneum: No free intraperitoneal air. No free fluid in the abdomen or pelvis. Bladder: Small volume intraluminal air within nondependent portion is likely secondary to recent catheterization. Please correlate with patient's history. Reproductive Organs: The uterus is absent. Bones: Bone windows demonstrate no suspicious lytic or blastic lesions. Median sternotomy wires and present. The visible osseous structures are otherwise intact. Degenerative changes are seen in the spine. Soft tissues: Mild diffuse soft tissue edema. Procedure Note Nakul Almanzar MD - 02/16/2024 PROCEDURE: CT ANGIO AORTA FOR DISSECTION, DATE/TIME OF EXAM: 02/16/2024 1:59 PM, LOCATION [facility] INDICATION: I71.00: Dissection of aorta, unspecified portion of aorta(HCC) Ordering Provider Reason For Exam: s/p aortic arch repair w/ hemashield graft; back pain; eval for type B aneurysm COMPARISON: None. TECHNIQUE: CT of the chest, abdomen, and pelvis was performed prior toand following the uneventful administration of 100 mL of Isovue 370intravenous contrast according to an angiogram dissection protocol. Threedimensional postprocessing was performed by the technologist and sent to the workstation for review. FINDINGS: Thoracic aorta: Postsurgical changes of type A aortic dissection repair with graft with slightly greater than simple fluid attenuation smallvolume fluid collection surrounding the thoracic aorta. No contrastextravasation is present to suggest active arterial bleeding. No intimal flap,intramural hematoma, penetrating atherosclerotic ulcer, or aneurysm. Thoracic aortic branches: Subclavian arteries: Patent without significant focal stenosis. Linear hypoattenuation across the left subclavian artery (series 6, image 55) represents beam artifact from external chest wall leads. Brachiocephalic artery: Patent without significant focal stenosis. Pulmonary artery: Normal. Coronary arteries: Atherosclerotic. Abdominal aorta: No aortic dissection, intramural hematoma, penetrating atherosclerotic ulcer, or aneurysm. Abdominal aortic branches: Celiac axis: Atherosclerotic at its origin but patent withoutsignificant focal stenosis. Superior mesenteric artery: Atherosclerotic at its origin but patent without significant focal stenosis. Inferior mesenteric artery: Patent without significant focal stenosis. Right renal artery: Atherosclerotic at its origin but patent without significant focal stenosis. Left renal artery: Atherosclerotic at its origin but patent without significant focal stenosis. Right common iliac artery: Atherosclerotic but patent withoutsignificant focal stenosis. Right internal iliac artery: Atherosclerotic but patent withoutsignificant focal stenosis. Right external iliac artery: Patent without significant focal stenosis. Left common iliac artery: Atherosclerotic but patent without significant focal stenosis. Left internal iliac artery: Atherosclerotic but patent withoutsignificant focal stenosis. Left external iliac artery: Patent without significant focal stenosis. Chest: Lower Neck and Axillae: Normal. Lungs: Mild centrilobular emphysema. Small bilateral pleural effusionswith fissural edema and associated atelectasis. Small groundglass and consolidative opacities in right middle lobe and lingula may represent atelectasis or calcifications. No pneumothorax is present. Heart and Pericardium: The cardiac chambers are normal in size. Trace volume pericardial effusion is present. Mediastinum and Miriam: Small volume of mediastinal hemorrhage with a few small foci of air are likely secondary to recent surgery. Abdomen/pelvis: Liver: Multiple hypoattenuating hepatic lesions with simple fluid attenuation, largest measuring up to 1.6 cm in hepatic segment 3 (series6, image 224) are indeterminate likely represent hepatic cysts. The liver surface is nodular. Gallbladder and Bile Ducts: The gallbladder is absent. No biliary dilatation is present. Spleen: Multiple calcified granulomas are noted in the spleen, likely sequelae of prior granulomatous disease. Pancreas: Is mildly atrophic. Punctate calcification within distal pancreatic body likely represents sequela of previous pancreatitis. Adrenals: Normal. Kidneys: A 12.3 cm simple fluid density cyst within the inferior regionof right kidney. No radiopaque stones or hydronephrosis present. Gastrointestinal: The stomach and visualized loops of small bowel are unremarkable. Colonic diverticulosis without evidence of diverticulitisis seen. There is a right inguinal hernia containing bowel loops without obstruction. Mesentery/Peritoneum/Retroperitoneum: No free intraperitoneal air. Nofree fluid in the abdomen or pelvis. Bladder: Small volume intraluminal air within nondependent portion is likely secondary to recent catheterization. Please correlate withpatient's history. Reproductive Organs: The uterus is absent. Bones: Bone windows demonstrate no suspicious lytic or blastic lesions. Median sternotomy wires and present. The visible osseous structures are otherwise intact. Degenerative changes are seen in the spine. Soft tissues: Mild diffuse soft tissue edema. 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 2.Small bilateral pleural effusions and fissural edema with mild diffuse anasarca may secondary to volume status. 3.Nodular liver surface concerning for hepatic parenchymal disease. > Dictated by Luis Angel Humphrey MD (president ergonomic consulting). I, Nakul Almanzar MD have personally reviewed and interpreted this examination/study. > Interpreting Provider: Nakul Almanzar MD on 02/16/2024 7:42 PM [facility] ORDER MAC * CALCIUM IONIZED WHOLE BLOOD (02/10/2024 4:05 AM CDT) Only the most recent of11 resultswithin the time period is included. Pathologist [facility] Calcium Ionized 1.20 mmol/L 02/10/2024 4:24 AM CDT [facility] pH 7.38 7.35 - 7.45 pH 02/10/2024 4:24 AM CDT [facility] Ionized Calcium pH Adjusted 1.19 1.19 - 1.34 mmol/L 02/10/2024 4:24 AM CDT [facility] Blood BLOOD SPECIMEN / Unknown Venipuncture / Unknown 02/10/2024 4:05 AM CDT 02/10/2024 4:18 AM CDT Frances Diaz [facility] LAB - CHEMISTRY ORDERABLES [facility] [address] [place] [phone], [facility] [phone] * PREPARE (CROSSMATCH) RBC UNIT(S), 10 Units (02/07/2024 1:17 AM CDT) Only the most recent of3 resultswithin the time period is included. Pathologist [facility] Unit Description -1 LR PRBC LV [facility] Unit ABO B [facility] Unit Rh POS [facility] Product Number R52 [facility] Unit Donor # [id number] [facility] Unit Status released [facility] Product Code [id number] [facility] Blood Type Barcode 7300 [facility] Expiration Date [facility] Unit Description AS1 LR PRBC [facility] Unit ABO B [facility] Unit POS [facility] Product Number R02 [facility] Unit Donor # [id number] [facility] Unit Status released [facility] Product Code [id number] [facility] Blood Type Barcode 7300 [facility]piration Date [facility] Unit Description AS1 LR PRBC [facility] Unit ABO B [facility] Unit POS [facility] Product Number R02 [facility] Unit Donor # [id number] [facility] Unit Status released [facility] Product Code [id number] [facility] Blood Type Barcode 7300 [facility] Expiration Date [facility] Unit Description AS1 LR PRBC [facility] Unit ABO B [facility] Unit POS [facility] Product Number R02 [facility] Unit Donor # [id number] [facility] Unit Status released [facility] Product Code [id number] [facility] Blood Type Barcode 7300 [facility]piration Date [facility] Unit Description AS1 LR PRBC [facility] Unit ABO B [facility] Unit POS [facility] Product Number R44 [facility] Unit Donor # [id number] [facility] Unit Status released [facility] Product Code [id number] [facility] Blood Type Barcode 7300 [facility] Expiration Date [facility] Unit Description AS1 LR PRBC [facility] Unit ABO B [facility] Unit POS [facility] Product Number R43 [facility] Unit Donor # [id number] [facility] Unit Status released [facility] Product Code [id number] [facility] Blood Type Barcode 7300 [facility] Expiration Date [id number] S [facility] LAB Blood Bank BLOOD SPECIMEN / Unknown 02/03/2024 2:56 PM CDT Frances Diaz MOBILE EQUIPMENT MECHANIC-INDUSTRIAL RELATIONS DIRECTOR LAB - BLOOD BANK ORDERABLES Performing Organization Address City/[facility]/ZIP Co de Phone Number [facility] [address] [place] [address], [place] [phone] * PREPARE PLATELET PHERESIS UNIT(S), 2 Units (02/07/2024 1:17 AM CDT) Only the most recent of3 resultswithin the time period is included. Unit Description N/A [facility] Blood Bank BLOOD SPECIMEN / Unknown 02/03/2024 2:56 PM CDT Frances Diaz MOBILE EQUIPMENT MECHANIC-INDUSTRIAL RELATIONS DIRECTOR LAB - BLOOD BANK ORDERABLES Performing Organization Address [facility] Co de Phone Number [facility] [address] [place] [address], [place] [phone] * PREPARE FFP UNIT(S), 4 Units (02/07/2024 1:17 AM CDT) Only the most recent of3 resultswithin the time period is included. Unit Description N/A [facility] Blood Bank BLOOD SPECIMEN / Unknown 02/03/2024 2:56 PM CDT Frances Diaz MOBILE EQUIPMENT MECHANIC-INDUSTRIAL RELATIONS DIRECTOR LAB - BLOOD BANK ORDERABLES Performing Organization Address [facility] Co de Phone Number [facility] [address] [place] [address], [place] [phone] * (ABNORMAL) BLOOD GASES ART + COOX PANEL (02/06/2024 5:44 PM CDT) Only the most recent of12 resultswithin the time period is included. pH Arterial 7.34(L) 7.35 - 7.45 pH 02/06/2024 5:53 PM [facility] pO2 Arterial 102(H) 80 - 100 mmHg 02/06/2024 5:53 PM [facility] pCO2 Arterial 50(H) 35 - 45 mmHg 5:53 PM [facility] HCO3 Arterial 27.0 20.0 - 30.0 mmol/L 02/06/2024 5:53 PM [facility] BE Arterial 0.5 -2.0 - 2.0 mmol/L 02/06/2024 5:53 PM [facility] Oxyhemoglobin Arterial 97.0 % 02/06/2024 5:53 PM [facility] Dexoyhemoglobin (HHB) % <1.0 % 02/06/2024 5:53 PM [facility] Methemoglobin 0.8 0.0 - 2.0 % 02/06/2024 5:53 PM [facility] Carboxyhemoglobin 1.7 0.0 - 2.0 % 2023 5:53 PM [facility] O2 Content Arterial 18.0 Interpret within clinical context ml/dL 02/06/2024 5:53 PM [facility] Hemoglobin by COOX 13.1 12.0 - 15.6 g/dL 02/06/2024 5:53 PM [facility] O2 Saturation Arterial 100 90 - 100 % 02/06/2024 5:53 PM [facility] FI O2 Arterial 32.0 % 02/06/2024 5:53 PM [facility] Blood, arterial ARTERIAL BLOOD SPECIMEN / Unknown Arterial Puncture / Unknown 02/06/2024 5:44 PM T 02/06/2024 5:48 PM [facility] - 02/06/2024 5:53 PM [facility] Carboxyhemoglobin Normal Concentration: Non-smokers: 0-2%; Smokers: 0-9%; Toxic: >20% Sharifa Duong PA-C LAB - BLOOD GASES ORDERABLES [facility] [address] [place] [address], [facility] [phone] * ECHO LIMITED W CONTRAST (02/06/2024 9:19 AM CDT) LV biplane EF 69.451 % [facility] CV FUJI PACS LV A2C EF 75.012 % [facility] CV FUJ I PACS LV A4C EF 62.023 % [facility] CV FUJ I PACS LV EDV A2C 37.798 ml [facility]SM CV FU JI PACS LV EDV A4C 35.45 ml [facility] CV FU JI PACS LV ESV A2C 9.445 ml [facility] CV FU JI PACS LV ESV A4C 13.463 ml [facility] CV FU JI PACS TR pk marcellus 181.947 cm/s [facility] CV FUJ I PACS IVC Diam Expiration 2.334 cm [facility] CV FUJI PACS Myocardial strain charge 2 unitless [facility] CV FUJI PACS Anatomical Region Laterality Modality Ultrasound 02/06/2024 8:36 AM CDT Narrative 02/06/2024 9:55 AM CDT Summary ??* The left ventricle is normal in size, with normal systolic function and an EF of 69 %. Left ventricular wall motion is grossly normal, however endocardial definition is limited. ??* Right ventricle is not well visualized, but appears dilated with mildly reduced systolic function. ??* The inferior vena cava is dilated (> 2.1 cm). ??* There is no pericardial effusion. Patient Info Name: ? Amina Rodriguez Age: ? 83 years : ? 1940 Gender: ? Female Accession #: ? [id number] Ht: ? 63 in Wt: ? 169 lb BSA: ? 1.87 m2 BP: ? 115 / ? 70 mmHg Exam Date: ? 02/06/2024 8:36 AM Patient Status: ? I/P Study Site: ? [facility] Primary Location: ? [facility] EStud Info Exam Type: ? ECHO LIMITED W CONTRAST Indications ?I71.00 - Dissection of aorta, ??unspecified portion of aorta (HCC) Procedure(s) ??* A limited 2D and color Doppler transthoracic echocardiogram was performed with an Ultrasound Enhancing Agent (UEA). Contrast/Agitated Saline Contrast / Saline: ? Definity Amount: ? 0.50 ml Administered By: ? Katharina Franco Staff Referring Physician: ? Tonya Piedra Ordering Provider: ? Tonya Piedra Attending Physician: ? Tonya Whitneyagnieszka Business Intelligence Engineer: ? Katharina Franco Left Ventricle ??The left ventricle is normal in size. Left ventricular systolic function is normal with an ejection fraction by Biplane Method of Discs of 69 %. Left ventricular segmental wall motion is grossly normal, however endocardial definition is limited. Right Ventricle ??The right ventricle is not well visualized, but appears dilated. Right ventricular systolic function is mildly reduced. Inferior Vena Cava ??The inferior vena cava is dilated (> 2.1 cm). Pericardium/Pleural ??There is no pericardial effusion. Measurements Tricuspid Valve Name ? Value ?Normal TV Regurgitation Doppler TR Peak Velocity ? 1.8 m/s ? TR Peak Gradient ? 13 mmHg Venous Name ? Value ?Normal IVC/SVC IVC Diameter ?2.3 cm ? <=2.1 Ventricles Name ? Value ?Normal LV Fractional Shortening/Ejection Fraction 2D/MM LV Diastolic Volume (4C MOD) ? 35 ml ? LV EF (4C MOD) ?62 % ? LV Diastolic Volume (2C MOD) ? 38 ml ? LV EF (2C MOD) ?75 % ? LV Diastolic Volume (BP MOD) ? 39 ml ?46-106 LV Diastolic Volume Index (BP MOD) ?21 ml/m2 ? 29-61 LV Systolic Volume (BP MOD) ?12 ml ? 14-42 LV Systolic Volume Index (BP MOD) ? 6 ml/m2 ?8-24 LV EF (BP MOD) ?69 % ? 54-74 LV Diastolic Length (4C) ?5.8 cm ? LV Systolic Length (4C) ? 4.9 cm ? LV Stroke Volume (4C MOD) ?22 ml Report Signatures Finalized by Blu Singleton on 02/06/2024 09:54 AM Procedure Note Blu Singleton MD - 02/06/2024 Summary * The left ventricle is normal in size, with normal systolic functionand an EF of 69 %. Left ventricular wall motion is grossly normal, however endocardial definition is limited. * Right ventricle is not well visualized, but appears dilated withmildly reduced systolic function. * The inferior vena cava is dilated (> 2.1 cm). * There is no pericardial effusion. Patient Info Name: Amina Rodriguez Age: 83 years : 1940 Gender: Female Ht: 63 in Wt: 169 lb BSA: 1.87 m2 BP: 115 / 70 mmHg Exam Date: 02/06/2024 8:36 AM Patient Status: I/P Study Site: [facility] Primary Location: [facility] EStudy Info Exam Type: ECHO LIMITED W CONTRAST Indications I71.00 - Dissection of aorta, unspecified portion of aorta (HCC) Procedure(s) * A limited 2D and color Doppler transthoracic echocardiogram wasperformed with an Ultrasound Enhancing Agent (UEA). Contrast/Agitated Saline Contrast / Saline: Definity Amount: 0.50 ml Administered By: Katharina Franco Staff Referring Physician: Tonya Piedra Ordering Provider: Tonya Piedra Attending Physician: Tonya Piedra Business Intelligence Engineer: Katharina Franco Left Ventricle The left ventricle is normal in size. Left ventricular systolic functionis normal with an ejection fraction by Biplane Method of Discs of 69 %.Left ventricular segmental wall motion is grossly normal, however endocardial definition is limited. Right Ventricle The right ventricle is not well visualized, but appears dilated. Right ventricular systolic function is mildly reduced. Inferior Vena Cava The inferior vena cava is dilated (> 2.1 cm). Pericardium/Pleural There is no pericardial effusion. Measurements Tricuspid Valve Name Value Normal TV Regurgitation Doppler TR Peak Velocity 1.8 m/s TR Peak Gradient 13 mmHg Venous Name Value Normal IVC/SVC IVC Diameter 2.3 cm <=2.1 Ventricles Name Value Normal LV Fractional Shortening/Ejection Fraction 2D/MM LV Diastolic Volume (4C MOD) 35 ml LV EF (4C MOD) 62 % LV Diastolic Volume (2C MOD) 38 ml LV EF (2C MOD) 75 % LV Diastolic Volume (BP MOD) 39 ml 46-106 LV Diastolic Volume Index (BP MOD) 21 ml/m2 29-61 LV Systolic Volume (BP MOD) 12 ml 14-42 LV Systolic Volume Index (BP MOD) 6 ml/m2 8-24 LV EF (BP MOD) 69 % 54-74 LV Diastolic Length (4C) 5.8 cm LV Systolic Length (4C) 4.9 cm LV Stroke Volume (4C MOD) 22 ml Report Signatures Finalized by Blu Singleton on 02/06/2024 09:54 AM Tonya Piedra MD ECHO CUPID * SODIUM URINE RANDOM (02/05/2024 5:06 PM CDT) Sodium Urine <20 Not Established mmol/L 02/05/2024 5:38 PM CDT [facility] Urine URINE SPECIMEN OBTAINED BY CLEAN CATCH PROCEDURE / Unknown Collection / Unknown 02/05/2024 5:06 PM CDT 02/05/2024 5:14 PM CDT Reza Guo APRN-INDUSTRIAL RELATIONS DIRECTOR LAB - UR INE CHEMISTRY ORDERABLES Performing Organization Address City/[facility]/ZIP Co de Phone Number [address] [address], [facility] [phone] * CREATININE URINE RANDOM (02/05/2024 5:06 PM CDT) Creatinine Urine 129.72 Not Established mg/dL 02/05/2024 5:38 PM CDT [facility] Urine URINE SPECIMEN OBTAINED BY CLEAN CATCH PROCEDURE / Unknown Collection / Unknown 02/05/2024 5:06 PM CDT 02/05/2024 5:14 PM CDT Reza Guo MOBILE EQUIPMENT MECHANIC-INDUSTRIAL RELATIONS DIRECTOR LAB - UR INE CHEMISTRY ORDERABLES [address] [address], [facility] [phone] * SVO2 FOR RECALIBRATION (02/05/2024 10:21 AM CDT) Only the most recent of5 resultswithin the time period is included. SVO2 for Recalibration 68.6 66.0 - 77.0 % 02/05/2024 10:31 AM CDT [facility] Blood BLOOD SPECIMEN / Unknown Venipuncture / Unknown 02/05/2024 10:21 AM CDT 02/05/2024 10:28 AM CDT Sharifa Duong PA-C LAB - CHEMISTRY OR DERABLES [address] [address], [facility] [phone] * AMMONIA (02/05/2024 7:32 AM CDT) Ammonia 23 <=72 umol/L 02/05/2024 7:58 AM CDT [facility] Blood BLOOD SPECIMEN / Unknown Venipuncture / Unknown 02/05/2024 7:32 AM CDT 02/05/2024 7:36 AM CDT Tonya Piedra MD LAB - CHEMISTRY ORD ERABLES Performing Organization Address City/[facility]/ZIP Co de Phone Number [address] [address], [place] [phone] * TSH REFLEX FREE T4 (02/05/2024 3:13 AM CDT) TSH 0.592 0.350 - 4.940 uIU/mL 02/05/2024 4:14 AM CDT [facility] Blood BLOOD SPECIMEN / Unknown Venipuncture / Unknown 02/05/2024 3:13 AM CDT 02/05/2024 3:26 AM CDT Reza Guo MOBILE EQUIPMENT MECHANIC-INDUSTRIAL RELATIONS DIRECTOR LAB - CH EMISTRY ORDERABLES Performing Organization Address [facility]/ZIP Co de Phone Number [address] [address], [place] [phone] * HEMOGLOBIN A1C (02/05/2024 3:13 AM CDT) Hemoglobin A1c 5.6 <=5.6 % 02/05/2024 9:22 AM CDT [facility] Estimated Average Glucose 114 mg/dL 02/05/2024 9:22 AM [facility] Comment: HbA1c Interpretation: Normal : < 5.7% Pre-diabetes: 5.7-6.4% Diabetes: Equal to or greater than 6.5% Test results diagnostic of diabetes should be repeated for confirmation. Treatment target values recommended by ADA and other clinical organizations should be used to evaluate metabolic control in patients. Reference: [place] [employer], Standards of Care in Diabetes -2020 In patients 70 years and older consider HbA1c target range of 7.0-7.5% (Reference: David Jesus et al. JAMDA. 2012) The Sebia assay for the measurement of HbA1c is a National Glycohemoglobin Standardization Program (NGSP) certified method. Blood BLOOD SPECIMEN / Unknown Venipuncture / Unknown 02/05/2024 3:13 AM CDT 02/05/2024 3:26 AM CDT Reza Guo MOBILE EQUIPMENT MECHANIC-INDUSTRIAL RELATIONS DIRECTOR LAB - CH EMISTRY ORDERABLES Performing Organization Address City/State/[facility] Co de Phone Number [facility] [address] [place] [address], [facility] [phone] * (ABNORMAL) LIPID PROFILE (02/05/2024 3:13 AM CDT) Cholesterol Total 87 <200 mg/dL 02/05/2024 3:55 AM [facility] HDL 34(L) >40 mg/dL 02/05/2024 3:55 AM [facility] Comment: ATP III Classification of HDL Cholesterol: ? <40 mg/dL: ??Considered a major risk factor. ? >60 mg/dL: ??Considered a negative risk factor. ? LDL Calculated 39 <100 mg/dL 02/05/2024 3:55 AM [facility] Comment: ATP III Classification of LDL Cholesterol: ?<100 mg/dL: ??Optimal ? 100 - 129 mg/dL: ??Near Optimal/Above Optimal ? 130 - 159 mg/dL: ??Borderline High ? 160 - 189 mg/dL: ??High ?>190 mg/dL: ??Very High ? Triglycerides 71 <150 mg/dL 02/05/2024 3:55 AM CDT [facility] Comment: ATP III Classification of Triglycerides: ?<150 mg/dL: ??Normal ? 150 - 199 mg/dL: ??Borderline High ? 200 - 400 mg/dL: ??High ?>500 mg/dL: ??Very High Blood BLOOD SPECIMEN / Unknown Venipuncture / Unknown 02/05/2024 3:13 AM CDT 02/05/2024 3:26 AM CDT Reza Guo MOBILE EQUIPMENT MECHANIC-INDUSTRIAL RELATIONS DIRECTOR LAB - CH EMISTRY ORDERABLES Performing Organization Address City/[facility]/ZIP Co de Phone Number [address] [address], [employer] [phone] * (ABNORMAL) LACTIC ACID BLOOD (02/04/2024 4:06 AM CDT) Only the most recent of2 resultswithin the time period is included. Lactic Acid-Stat 5.2(HH) <=2.0 mmol/L 02/04/2024 4:36 AM CDT [facility] Blood BLOOD SPECIMEN / Unknown Venipuncture / Unknown 02/04/2024 4:06 AM CDT 02/04/2024 4:23 AM CDT Frances Diaz MOBILE EQUIPMENT MECHANIC-INDUSTRIAL RELATIONS DIRECTOR LAB - CHEMISTRY ORDERABLES Performing Organization Address [facility]/ZIP Co de Phone Number [address] [address], [employer] [phone] * XR Abdomen Kub Portable (02/03/2024 11:56 PM CDT) Anatomical Region Laterality Modality Abdomen Radiographic Annette ging 02/04/2024 7:44 AM CDT Narrative 02/04/2024 8:28 AM CDT PROCEDURE: ??XR CHEST 1VW PORTABLE, XR ABDOMEN KUB PORTABLE, XR CHEST 1VW PORTABLE, XR CHEST 1VW PORTABLE, DATE/TIME OF EXAM: ??02/03/2024 11:56 PM, LOCATION ??[facility] INDICATION: I71.010: 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 TECHNIQUE: Frontal radiograph of the chest. FINDINGS/IMPRESSION: X-ray chest 02/03/2024 10:03 PM: *Endotracheal tube terminates at the mid thoracic trachea. *Right internal jugular approach central catheter tip terminates at the junction of innominate vein and superior vena cava. *Left subclavian approach central catheter tip terminates at the superior atriocaval junction. *Intact median sternotomy wires and mediastinal drains are in place. Surgical clips over the right axilla. *A transesophageal echocardiogram probe is visible. There are interstitial and mild airspace opacities likely due to pulmonary edema. There is no pleural effusion or pneumothorax. Superior mediastinum is widened. X-ray chest 02/03/2024 11:52 PM: *Endotracheal tube tip terminates at the lower thoracic trachea, 2.8 cm from breanne. *Enteric tube tip terminates below the diaphragm. The sidehole at the stomach. *Right internal jugular approach Canal W[place]-Cecy catheter tip terminates at the pulmonary artery. *Left subclavian approach central catheter tip terminates at the superior atriocaval junction. *Mediastinal drains, intact median sternotomy wires are in place. Bilateral interstitial and airspace opacities likely due to pulmonary edema, increased. Bibasilar opacity which may be due to small pleural effusions and/or atelectasis, increased. No pneumothorax. Superior mediastinum is widened. X-ray KUB 02/03/2024 11:53 PM: *An NG tube tip and side-port terminate in the gastric body. X-ray chest 02/04/2024 3:51 AM: *Endotracheal tube tip terminates in the lower thoracic trachea. The breanne is difficult to visualize on this study. *Enteric tube tip terminates below diaphragm. *Right internal jugular approach Canal Winchester-Cecy catheter tip terminates at the pulmonary artery. *Left subclavian approach central catheter tip terminates at the superior atriocaval junction. *Mediastinal drains, intact median sternotomy wires are in place. Bilateral interstitial and airspace opacities likely due to pulmonary edema, slightly increased. There is atelectasis and/or small pleural effusions. No pneumothorax. Superior mediastinum is widened. Report dictated by Claudio Nguyen MD, (Scrap Hooker). I, Julien Saab MD have personally reviewed and interpreted this examination/study. 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 TECHNIQUE: Frontal radiograph of the chest. FINDINGS/IMPRESSION: X-ray chest 02/03/2024 10:03 PM: *Endotracheal tube terminates at the mid thoracic trachea. *Right internal jugular approach central catheter tip terminates at the junction of innominate vein and superior vena cava. *Left subclavian approach central catheter tip terminates at thesuperior atriocaval junction. *Intact median sternotomy wires and mediastinal drains are in place. Surgical clips over the right axilla. *A transesophageal echocardiogram probe is visible. There are interstitial and mild airspace opacities likely due topulmonary edema. There is no pleural effusion or pneumothorax. Superiormediastinum is widened. X-ray chest 02/03/2024 11:52 PM: *Endotracheal tube tip terminates at the lower thoracic trachea, 2.8 cm from breanne. *Enteric tube tip terminates below the diaphragm. The sidehole at the stomach. *Right internal jugular approach Canal Winchester-Cecy catheter tip terminates atthe pulmonary artery. *Left subclavian approach central catheter tip terminates at thesuperior atriocaval junction. *Mediastinal drains, intact median sternotomy wires are in place. Bilateral interstitial and airspace opacities likely due to pulmonary edema, increased. Bibasilar opacity which may be due to small pleural effusions and/or atelectasis, increased. No pneumothorax. Superior mediastinum is widened. X-ray KUB 02/03/2024 11:53 PM: *An NG tube tip and side-port terminate in the gastric body. X-ray chest 02/04/2024 3:51 AM: *Endotracheal tube tip terminates in the lower thoracic trachea. Thecarina is difficult to visualize on this study. *Enteric tube tip terminates below diaphragm. *Right internal jugular approach Canal Winchester-Cecy catheter tip terminates atthe pulmonary artery. *Left subclavian approach central catheter tip terminates at thesuperior atriocaval junction. *Mediastinal drains, intact median sternotomy wires are in place. Bilateral interstitial and airspace opacities likely due to pulmonary edema, slightly increased. There is atelectasis and/or small pleural effusions. No pneumothorax. Superior mediastinum is widened. Report dictated by Claudio Nguyen MD, (Scrap Hooker). I, Julien Saab MD have personally reviewed and interpreted this examination/study. > Interpreting Provider: Julien Saab MD on 02/04/2024 8:28 AM Frances Diaz MOBILE EQUIPMENT MECHANIC-INDUSTRIAL RELATIONS DIRECTOR DIAGNOSTIC IMAGI NG ORDERABLES * (ABNORMAL) PTT [facility] (02/03/2024 11:19 PM CDT) Only the most recent of2 resultswithin the time period is included. APTT 41.7(H) 23.0 - 38.4 Seconds 02/04/2024 12:06 AM CDT [facility] Comment:Suggested therapeuti c range for full dose I.V. unfractionated heparin therapy for venous thromboembolism is 71 to 109 seconds. Blood BLOOD SPECIMEN / Unknown Line Draw / Unknown 02/03/2024 11:19 PM CDT 02/03/2024 11:30 PM CDT Frances Diaz MOBILE EQUIPMENT MECHANIC-INDUSTRIAL RELATIONS DIRECTOR LAB - COAGULATIO N ORDERABLES Performing Organization Address City/[facility]/ZIP Co de Phone Number [address] [address], [facility] [phone] * (ABNORMAL) PT-INR [facility] (02/03/2024 11:19 PM CDT) Only the most recent of3 resultswithin the time period is included. PT 18.0(H) 12.1 - 14.8 Seconds 02/04/2024 12:06 AM CDT [facility] INR 1.5 See Comment 02/04/2024 12:06 AM CDT [facility] Comment:The suggested therap eutic range for standard coumadin (warfarin) therapy is an INR of 2.0-3.0. For high-risk patients (Mechanical Mitral Valve Prosthesis, etc.), the suggested prophylactic therapeutic range is an INR of 2.5-3.5. Blood BLOOD SPECIMEN / Unknown Line Draw / Unknown 02/03/2024 11:19 PM CDT 02/03/2024 11:30 PM CDT Frances Diaz MOBILE EQUIPMENT MECHANIC-INDUSTRIAL RELATIONS DIRECTOR LAB - COAGULATIO N ORDERABLES Performing Organization Address [facility] Co de Phone Number [address] [address], [place] [phone] * FIBRINOGEN ACTIVITY (02/03/2024 11:19 PM CDT) Only the most recent of2 resultswithin the time period is included. Fibrinogen Clauss 243 200 - 400 mg/dL 02/04/2024 12:05 AM CDT [facility] Blood BLOOD SPECIMEN / Unknown Line Draw / Unknown 02/03/2024 11:19 PM CDT 02/03/2024 11:30 PM CDT Frances العليe MOBILE EQUIPMENT MECHANIC-INDUSTRIAL RELATIONS DIRECTOR LAB - COAGULATIO N ORDERABLES [facility] [address] [place] [address], [facility] [phone] * (ABNORMAL) BLOOD GAS+COOX+LYTES+METAB ARTERIAL POCT (02/03/2024 10:35 PM CD) Only the most recent of8 resultswithin the time period is included. pH Arterial 7.34(L) 7.35 - 7.45 pH 02/03/2024 10:35 PM [facility] pO2 Arterial 163(H) 80 - 100 mmHg 02/03/2024 10:35 PM [facility] pCO2 Arterial 45 35 - 45 mmHg 10:35 PM [facility] HCO3 Arterial 24.3 20.0 - 30.0 mmol/L 02/03/2024 10:35 PM [facility] BE Arterial -1.6 -2.0 - 2.0 mmol/L 02/03/2024 10:35 PM [facility] Oxyhemoglobin Arterial 98.1 % 02/03/2024 10:35 PM [facility] Dexoyhemoglobin (HHB) % <1.0 % 02/03/2024 10:35 PM [facility] Methemoglobin <0.8 0.0 - 2.0 % 02/03/2024 10:35 PM [facility] Carboxyhemoglobin 1.1 0.0 - 2.0 % 2023 10:35 PM [facility] Comment:Carboxyhemoglobin No rmal Concentration: Non-smokers: 0-2%; Smokers: 0- 9%; Toxic: >20% O2 Content Arterial 14.7 Interpret within clinical context ml/dL 02/03/2024 10:35 PM [facility] Hemoglobin by COOX 10.4(L) 12.0 - 15.6 g/dL 02/03/2024 10:35 PM [facility] O2 Saturation Arterial 100 90 - 100 % 02/03/2024 10:35 PM [facility] Sodium Whole Blood 145 135 - 145 mmol/L 02/03/2024 10:35 PM [facility] Potassium Whole Blood 4.4 3.5 - 5.5 mmol/L 02/03/2024 10:35 PM CDT [facility] Chloride WB 109(H) 78 - 107 mmol/L 02/03/2024 10:35 PM CDT [facility] Calcium Ionized 1.23 mmol/L 10:35 PM CDT [facility] Ionized Calcium pH Adjusted 1.20 1.19 - 1.34 mmol/L 02/03/2024 10:35 PM CDT [facility] Anion Gap (AG) Arterial 12 6 - 16 mmol/L 02/03/2024 10:35 PM CDT [facility] Glucose WB 248(H) 70 - 115 mg/dL 02/03/2024 10:35 PM CDT [facility] Lactic Acid Whole Blood 5.9(HH) <=2.0 mmol/L 02/03/2024 10:35 PM CDT [facility] Blood, arterial ARTERIAL BLOOD SPECIMEN / Unknown 02/03/2024 10:35 PM CDT 02/03/2024 10:36 PM CDT Narrative [facility] - 02/03/2024 10:35 PM CDT Critical Value Acknowledged Licensed healthcare provider notified Tonya Piedra MD LAB - POINT OF CARE ORDERABLES Performing Organization Address City/State/[facility] Co de Phone Number [facility] [address] [place] [address], [facility] [phone] * TRANSFUSE RED BLOOD CELL LEUKOREDUCED UNIT(S) (02/03/2024 10:29 PM CDT) Tonya Piedra MD NURSING - BLOOD PRO D TRANSFUSION * TRANSFUSE RED BLOOD CELL LEUKOREDUCED UNIT(S) (02/03/2024 9:57 PM CDT) Tonya Piedra MD NURSING - BLOOD PRO D TRANSFUSION * TRANSFUSE RED BLOOD CELL LEUKOREDUCED UNIT(S) (02/03/2024 9:44 PM CDT) Tonya Piedra MD NURSING - BLOOD PRO D TRANSFUSION * TEG 6 GLOBAL HEMOSTASIS (02/03/2024 9:37 PM CDT) [facility] Citrated Kaolin R (Reaction Time) 7.6 4.6 - 9.1 min 02/03/2024 10:32 PM CDT [facility] Citrated Kaolin K (Clot Kinetics) 1.6 0.8 - 2.1 min 02/03/2024 10:32 PM CDT [facility] Citrated Kaolin Angle 68.9 63.0 - 78.0 deg 02/03/2024 10:32 PM CDT [facility] Citrated Kaolin MA (Max Amplitude) 61.7 52.0 - 69.0 mm 02/03/2024 10:32 PM CDT [facility] Citrated Kaolin w/Heparinase R (Reaction Time) 7.2 4.3 - 8.3 min 02/03/2024 10:32 PM CDT [facility] Citrated Functional Fibrinogen MA (Max Amplitude) 18.2 15.0 - 32.0 mm 02/03/2024 10:32 PM T [facility] Citrated Functional Fibrinogen FLEV 332.1 278.0 - 581.0 mg/dL 02/03/2024 10:32 PM CDT [facility] Citrated RapidTEG MA (Max Amplitude) 59.5 52.0 - 69.0 mm 02/03/2024 10:32 PM T [facility] Blood BLOOD SPECIMEN / Unknown Venipuncture / Unknown 02/03/2024 9:37 PM CDT 02/03/2024 9:42 PM CDT Haja Mata MD LAB - HEMATOLOGY ORD ERABLES [facility] [address] [place] [address], [facility] [phone] * TRANSFUSE PLATELET PHERESIS UNIT(S) (02/03/2024 9:22 PM CDT) Tonya Piedra MD NURSING - BLOOD PRO D TRANSFUSION * TRANSFUSE CRYOPRECIPITATE UNIT(S) (02/03/2024 9:15 PM CDT) Tonya Piedra MD NURSING - BLOOD PRO D TRANSFUSION * TRANSFUSE CRYOPRECIPITATE UNIT(S) (02/03/2024 9:15 PM CDT) Tonya Piedra MD NURSING - BLOOD PRO D TRANSFUSION * TRANSFUSE PLATELET PHERESIS UNIT(S) (02/03/2024 9:08 PM CDT) Tonya Piedra MD NURSING - BLOOD PRO D TRANSFUSION * PREPARE CRYOPRECIPITATE UNIT (S), 10 Units (02/03/2024 9:03 PM CDT) Only the most recent of2 resultswithin the time period is included. Unit Description Thawed Cryp [facility] BLOOD BANK LAB Unit ABO B [facility] Unit Rh POS [facility] Product Number [id number] [facility] B LOOD BANK LAB Unit Donor # [id number] [facility] Unit Status transfused [facility] BLO OD [facility]ANK LAB Product Code [id number] [facility] BLO OD [facility] Blood Type Barcode 7300 [facility] Expiration Date S BLOOD BANK LAB Unit Description Thawed Cryp [facility] BLOOD BANK LAB Unit ABO B [facility] B[facility]OD [facility] Unit Rh POS [facility] BLOOD [facility] Product Number [id number] [facility] B LOOD BANK LAB Unit Donor # [id number] [facility] BLOOD [facility] Unit Status transfused [facility] BLO OD BANK LAB Product Code [id number] [facility] BLO OD [facility]ANK LAB Blood Type Barcode 7300 [facility] Expiration Date S BLOOD BANK LAB Blood Bank BLOOD SPECIMEN / Unknown 02/03/2024 2:56 PM CDT Tonya Piedra MD LAB - BLOOD BANK OR DERABLES [facility] [address] [place] [address], [facility] [phone] * ACT PLUS - POCT ([facility]) (02/03/2024 9:01 PM CDT) Only the most recent of6 resultswithin the time period is included. ACT PLUS 146 See result comments sec 02/03/2024 9:04 PM CDT [facility] Blood BLOOD SPECIMEN / Unknown 02/03/2024 9:01 PM CDT 02/03/2024 9:04 PM CDT Narrative [facility] - 02/03/2024 9:04 PM CDT ACT+ Therapeutic ranges for the ACT+ test in surgery areas are: Greater than (>) 360 seconds for surgical patients Greater than (>) 450 seconds for surgical bypass patients Tonya Piedra MD LAB - COAGULATION O RDERABLES [facility] [address] [place] [address], [facility] [phone] * TRANSFUSE FRESH FROZEN PLASMA UNIT(S) (02/03/2024 8:59 PM CDT) Tonya Piedra MD NURSING - BLOOD PRO D TRANSFUSION * TRANSFUSE RED BLOOD CELL LEUKOREDUCED UNIT(S) (02/03/2024 8:54 PM CDT) Tonya Piedra MD NURSING - BLOOD PRO D TRANSFUSION * TRANSFUSE RED BLOOD CELL LEUKOREDUCED UNIT(S) (02/03/2024 8:53 PM CDT) Tonya Piedra MD NURSING - BLOOD PRO D TRANSFUSION * TRANSFUSE FRESH FROZEN PLASMA UNIT(S) (02/03/2024 8:47 PM CDT) Tonya Piedra MD NURSING - BLOOD PRO D TRANSFUSION * TRANSFUSE RED BLOOD CELL LEUKOREDUCED UNIT(S) (02/03/2024 8:43 PM CDT) Tonya Piedra MD NURSING - BLOOD PRO D TRANSFUSION * TRANSFUSE PLATELET PHERESIS UNIT(S) (02/03/2024 8:39 PM CDT) Tonya Piedra MD NURSING - BLOOD PRO D TRANSFUSION * TRANSFUSE PLATELET PHERESIS UNIT(S) (02/03/2024 8:39 PM CDT) Tonya Piedra MD NURSING - BLOOD PRO D TRANSFUSION * TRANSFUSE CRYOPRECIPITATE UNIT(S) (02/03/2024 8:37 PM CDT) Tonya Piedra MD NURSING - BLOOD PRO D TRANSFUSION * TRANSFUSE CRYOPRECIPITATE UNIT(S) (02/03/2024 8:37 PM CDT) Tonya Piedra MD NURSING - BLOOD PRO D TRANSFUSION * TRANSFUSE FRESH FROZEN PLASMA UNIT(S) (02/03/2024 8:37 PM CDT) Tonya Piedra MD NURSING - BLOOD PRO D TRANSFUSION * TRANSFUSE FRESH FROZEN PLASMA UNIT(S) (02/03/2024 8:10 PM CDT) Tonya Piedra MD NURSING - BLOOD PRO D TRANSFUSION * TRANSFUSE RED BLOOD CELL LEUKOREDUCED UNIT(S) (02/03/2024 7:59 PM CDT) Tonya Piedra MD NURSING - BLOOD PRO D TRANSFUSION * TRANSFUSE RED BLOOD CELL LEUKOREDUCED UNIT(S) (02/03/2024 7:52 PM CDT) Tonya Piedra MD NURSING - BLOOD PRO D TRANSFUSION * TRANSFUSE RED BLOOD CELL LEUKOREDUCED UNIT(S) (02/03/2024 7:52 PM CDT) Tonya Piedra MD NURSING - BLOOD PRO D TRANSFUSION * TRANSFUSE RED BLOOD CELL LEUKOREDUCED UNIT(S) (02/03/2024 7:52 PM CDT) Tonya Piedra MD NURSING - BLOOD PRO D TRANSFUSION * PATHOLOGY TISSUE (02/03/2024 7:47 PM CDT) Case Report Surgical Pathology Report ? Case: [id number] ? Authorizing Provider: ??Tonya Piedra MD ? Collected: ? 02/03/2024 07:47 PM ? Ordering Location: ? [facility] ?Received: ?02/04/2024 05:07 AM ? Pathologist: ? Jose Garcia MD ? Specimen: ?Aorta, Ascending Aorta ? 02/05/2024 11:49 AM [facility] Final Diagnosis Ascending aorta, partial removal: Portion of aortic tissue with hemorrhage. 02/05/2024 11:49 AM [facility] Microscopic Description and Comment Microscopic examination is performed and supports the final diagnosis. 02/05/2024 11:49 AM [facility] Clinical History Aortic dissection 02/05/2024 11:49 AM [facility] Gross Description The requisition and specimen(s) are identified with the patient's name Amina Rodriguez . Received in formalin, specimen A , and consists of multiple portions of parker-brown tissue consistent with aorta aggregating to 7.8 x 5.0 x 1.6 cm, admixed with an abundant amount of red-brown clotted blood fragments. [employer] sections are submitted in single cassette labeled A1. RB 02/05/2024 11:49 AM [facility] Pathologist Location at [facility] 02/05/2024 11:49 AM [facility] Disclaimer The performance characteristics of all immunohistochemical and indirect immunofluorescence stains (if any) cited in this report were determined by the Histopathology Laboratory of [facility]. Some of these tests were developed by our own laboratory and have not been cleared or approved by the US Food and Drug Administration. The FDA does not require this test to go through premarket FDA review. These tests are used for clinical purposes. They should not be regarded as investigational or for research. This laboratory is certified under the Clinical Laboratory Improvement Amendments (CLIA) as qualified to perform high complexity clinical laboratory testing. This case has been personally reviewed and interpreted by the attending (teaching) pathologist. 02/05/2024 11:49 AM CDT [facility] Embedded Images 02/05/2024 11:49 AM CDT [facility] Resection without Tumor ENTIRE AORTA / Unknown 02/03/2024 7:47 PM CDT 02/04/2024 5:07 AM CDT Comment:Pre-op diagnosis: AORTIC DISSECTION Tonya Piedra MD LAB - PATHOLOGY/CYT OLOGY ORDERABLES Performing Organization Address City/State/[facility] de Phone Number [facility] [address] [phone] * TRANSFUSE RED BLOOD CELL LEUKOREDUCED UNIT(S) (02/03/2024 6:53 PM CDT) Tonya Piedra MD NURSING - BLOOD PRO D TRANSFUSION * TRANSFUSE RED BLOOD CELL LEUKOREDUCED UNIT(S) (02/03/2024 6:52 PM CDT) Tonya Piedra MD NURSING - BLOOD PRO D TRANSFUSION * CENTRAL LINE PERFORMABLE (02/03/2024 4:51 PM CDT) Narrative Haja Mata MD - 02/03/2024 4:51 PM CDT Haja Mata MD ? 02/03/2024 ??7:03 PM Central Line Placement Procedure Note/LDA ?? Patient Location: OR. Insertion Time: ??02/03/2024 4:27 PM Procedure: central line > 5yr ([id number]) Procedure Section: ?? Indications: IV access and CVP monitoring. Patient Sedated? ??Yes ? Sedation Type: ??general anesthesia Patient Position: ??Trendelenburg Orientation: right. Site: ??internal jugular Skin Prep: Chloraprep. Local Anesthetic Used? ??No Site Identification: ultrasound guided with sterile sleeve and gel. Seldinger Technique Used? ??No Wire Verification: verified by ultrasound. Intravenous Verification: verified by ultrasound, all ports aspirated/flushed easily and verified by x-ray. Lumens: ??double lumen Size: 9 Fr. Length (cm): other - please comment (10.5). Secured at (cm): other - please comment (10.5). Port Insertion: biopatch applied, sutured in place, all ports aspirated/flushed, guidewire removed intact and dressing applied. Number of Attempts: 1. Procedure Tolerance: ??tolerated well Maximal Sterile Barriers: ??Cap, mask, sterile gloves, a large sterile sheet, hand hygiene, and chlorahexidine for cutaneous antisepsis (6030F) Staff Section ? Anesthesia Provider: Eleno Jimenez DO, Performed the procedure ? Provider #1: Melany Venegas MD. Melany Venegas MD GENERAL ANESTHESIA O RDERABLES * ARTERIAL LINE PERFORMABLE (02/03/2024 4:28 PM CDT) Narrative Chas Roa DO - 02/03/2024 4:28 PM CDT Chas Roa DO ? 02/03/2024 ??4:51 PM Arterial Line Placement Procedure Note Patient Location: OR. Procedure: Arterial Line ([id number]) Procedure Section ?? Indications: continuous blood pressure monitoring. Consent: informed consent was obtained for the procedure. Alternatives Discussed: ??alternative treatment Skin Prep: Chloraprep. Orientation: Left. Site: radial. Sterile Technique: cap, mask, sterile gloves and small sterile fenestrated drape. Gauge: 20. Seldinger Technique Used? ??Yes Number of Attempts: 1. Procedure Tolerance: tolerated well. Events: none. Staff Section ? Anesthesia Provider: Melany Venegas MD, Performed the procedure ? Provider #1: Eleno Jimenez DO, Performed the procedure. Melany Venegas MD GENERAL ANESTHESIA O RDERABLES * ETT LINE PERFORMABLE (02/03/2024 4:26 PM CDT) Narrative Chas Roa DO - 02/03/2024 4:26 PM CDT Chas Roa DO ? 02/03/2024 ??4:27 PM Endotracheal Tube Placement: ? Patient Location: OR. Procedure: intubation ([id number]) Procedure Section: ?? Sedation: IV sedation. Indications for Airway Management: ??airway protection Procedure pretreatments used? ??Yes Induction: standard IV Patient Position: ??sniffing Mask Ventilation: easy. Blade Type: [place]field Blade Size: 2 Laryngoscopy View: grade 1 (full cords) Intubation Adjuncts: stylet Tube: endotracheal tube Placement: oral Tube type: cuff - inflated Tube Size (MM): 7 Depth of Insertion (CM): 22 Measured From: lips Cuff Inflated With: air Number of Attempts: 1. Placement Verified By: direct visualization, bilateral breath sounds, chest auscultation and CO2 monitor Tube secured with: ??adhesive tape. Dentition unchanged? ??Yes Difficult Airway? ??No. Staff Section ? Anesthesia Provider: Melany Venegas MD ? Provider #1: Chas Roa DO, Performed the procedure. Melany Venegas MD GENERAL ANESTHESIA O RDERABLES * BLOOD GAS ART+LYTES+METAB+COOX POC NOTIF (02/03/2024 4:00 PM CDT) Only the most recent of2 resultswithin the time period is included. Comment Notification Label Only - See Separate Report 02/03/2024 5:02 PM CDT [facility] Other MISCELLANEOUS SAMPLES / Unknown 02/03/2024 4:00 PM CDT 02/03/2024 4:00 PM CDT Tonya Piedra MD LAB - BLOOD GASES O RDERABLES [facility] [address] [place] [address], [facility] [phone] * BLOOD GAS NOEL+LYTES+METAB+COOX POC NOTIF (02/03/2024 3:55 PM CDT) Only the most recent of2 resultswithin the time period is included. Comment Notification Label Only - See Separate Report 02/03/2024 5:02 PM CDT [facility] Other MISCELLANEOUS SAMPLES / Unknown Collection / Unknown 02/03/2024 3:55 PM CDT 02/03/2024 3:59 PM CDT Melany Venegas MD LAB - BLOOD GASES OR DERABLES Performing Organization Address City/[facility]/ZIP Co de Phone Number [address] [address], [facility] [phone] * (ABNORMAL) TROPONIN-I HIGH SENSITIVE REFLEX 1HOUR (02/03/2024 3:42 PM CDT) Pathologist [facility] Troponin I High Sensitive 30(H) <=14 ng/L 02/03/2024 4:29 PM CDT [facility] Delta Troponin I HS 7(H) <6 ng/L 02/03/2024 4:29 PM CDT [facility] Comment:For acute chest pain (<3 hours), a delta of > or = 6 ng/L from baseline to 1 hour may indicate myocardial injury. Blood BLOOD SPECIMEN / Unknown Venipuncture / Unknown 02/03/2024 3:42 PM CDT 02/03/2024 3:53 PM CDT Mickey Cantu MD LAB - CHEMISTRY ORD ERABLES Performing Organization Address City/[facility]/ZIP Co de Phone Number [address] [address], [facility] [phone] * BLOOD TYPE VERIFICATION (02/03/2024 3:42 PM CDT) ABO Rh B POS 02/03/2024 4:0 7 PM CDT [facility] Blood Bank BLOOD SPECIMEN / Unknown Venipuncture / Unknown 02/03/2024 3:42 PM CDT 02/03/2024 3:48 PM CDT Mickey Cantu MD LAB - BLOOD BANK OR DERABLES Performing Organization Address [facility] de Phone Number [facility] [address] [place] [address], [employer] [phone] * (ABNORMAL) TROPONIN-I HIGH SENSITIVE BASELINE + 1HR (02/03/2024 2:41 PM CDT) Troponin I High Sensitive 23(H) <=14 ng/L 02/03/2024 3:29 PM CDT [facility] Blood BLOOD SPECIMEN / Unknown Venipuncture / Unknown 02/03/2024 2:41 PM CDT 02/03/2024 2:55 PM CDT Mickey Cantu MD LAB - CHEMISTRY ORD ERABLES Performing Organization Address [facility] Co de Phone Number [facility] [address] [place] [address], [employer] [phone] * TYPE + SCREEN PANEL (02/03/2024 2:41 PM CDT) Pathologist [facility] Antibody Screen NEG 3:41 PM CDT [facility] ABO Rh B POS 02/03/2024 3:41 PM CDT [facility] Blood Bank BLOOD SPECIMEN / Unknown Venipuncture / Unknown 02/03/2024 2:41 PM CDT 02/03/2024 2:56 PM CDT Mickey Cantu MD LAB - BLOOD BANK OR DERABLES Performing Organization Address [facility] Co de Phone Number [facility] [facility] [address] [place] [address], [employer] [phone] * DERMATOPATHOLOGY (04/04/2021 12:00 AM CDT) Only the most recent of2 resultswithin the time period is included. Case Report Dermatopathology Report ? Case: [id number] ? Authorizing Provider: ??Lissette Queen, DO ?? Collected: ? 04/04/2021 12:00 AM ? Ordering Location: ? [facility] ?Received: ?04/05/2021 08:07 AM ? Pathologist: ? Batool Birch MD ? Specimen: ?Skin, mid chest ? 5:02 PM CDT DERMATOPATHOLOGY LABORATORY Final Diagnosis Specimen A. SKIN, mid chest: LICHEN PLANUS-LIKE KERATOSIS (BENIGN LICHENOID KERATOSIS) (L82.1) 5:02 PM T DERMATOPATHOLOGY LABORATORY Clinical History LPLK R/O NMSC. 5:02 PM CDT DERMATOPATHOLOGY LABORATORY Gross Description Specimen A: Received is one formalin filled container labeled with the patient's name and designated mid chest. The specimen consists of a shave measuring [id number]. Jar 0. 5:02 PM CDT DERMATOPATHOLOGY LABORATORY Microscopic Description Specimen A. SKIN, mid chest: The epidermis is mildly acanthotic. There is a lichenoid infiltrate with vacuolar changes of basilar keratinocytes and scattered necrotic keratinocytes. 5:02 PM T DERMATOPATHOLOGY LABORATORY Disclaimer An external and internal positive and negative controls are appropriate for the histochemical, immunohistochemical and immunofluorescence stain(s) in this case (if any), except where stated explicitly. The performance characteristics of the stain(s) cited in this report were developed and its performance characteristic determined by the Dermatopathology Laboratory at [facility], directed by Dr. Johan Phelan. These tests need not be, and therefore are not, approved by the [place] Food and Drug Administration. The tests are used for clinical purposes. Billing Codes Specimen Charges Stain Charges 06567 1 1 5:02 PM CDT DERMATOPATHOLOGY LABORATORY Embedded Images 1 5:02 PM CDT DERMATOPATHOLOGY LABORATORY Pathology/Cytolog y TISSUE SPECIMEN FROM SKIN / Unknown 04/04/2021 04/05/2021 8:07 AM CDT Lissette Queen DO LAB - PATHOLOGY/C YTOLOGY ORDERABLES DERMATOPATHOLOGY LABORATORY [facility] - Department of Dermatology [facility] [address] [place] [address], [address] [phone] Care Teams Supervisor Fine Grading Relationship Specialty Start Date End Date Renzo He MD [address] [place] [address] PCP - General Family Medicine 02/10/24
--- OUTSIDE RECORDS SUMMARY | 2024-07-02 01:29 | XMS_ITS | Clinical Summary ---
Author Organization [facility] Address [address] [place] [address]. [place] [address] [place] [address] Care Team Providers Care Shaker Washer Name Role Phone Renzo He MD Primary Care Provider [phone] Tonya Piedra MD Unavailable [phone] Allergies Active Allergy Reactions Criticality Noted Date Comments Succinylcholine Anaphylaxis High 02/03/2024 Medications No known medications Encounters Date Type Department Care Team Description 06/26/2024 3:53 AM MANAGER OF LEARNING - 06/26/2024 6:09 AM MANAGER OF LEARNING Emergency [facility] Emergency [place] [address] [place], [place] [address] Kay Benoit MD Palpitations Discharge Disposition: Home or Self Care (Routine Discharge) 06/26/2024 Travel from Last 3 Months Immunizations Name Administration Dates Next Due MODERNA COVID-19 (12+) MRNA, LNP-S, PF, 100 MCG/ 0.5 ML DOSE 08/10/2020 Social History Tobacco Use Types Packs/Day Years Used Date Smoking Tobacco: Never Passive Smoke Exposure: Never Smokeless Tobacco: Never Tobacco Cessation:Counseling Given: Not Answered Alcohol Use Standard Drinks/Week Comments Never 0 (1 standard drink = 0.6 oz pur e alcohol) Comments No Sex and Gender Information Value Date Recorded Sex Assigned at Female 06/26/2024 5:43 AM MANAGER OF LEARNING Legal Sex Female 6:29 AM MANAGER OF LEARNING Gender Identity Female 06/26/2024 5:47 AM MANAGER OF LEARNING Sexual Orientation Straight 06/26/2024 5: 47 AM MANAGER OF LEARNING Last Filed Vital Signs Vital Sign Reading Time Taken Comments Blood Pressure 151/84 06/26/2024 6:00 AM MANAGER OF LEARNING Pulse 103 06/26/2024 6:00 AM MANAGER OF LEARNING Temperature 36.7 ??C (98 ??F) 06/26/2024 3:50 AM MANAGER OF LEARNING Respiratory Rate 17 06/26/2024 6:00 AM MANAGER OF LEARNING Oxygen Saturation 93% 06/26/2024 6:00 AM MANAGER OF LEARNING Inhaled Oxygen Concentration - - Weight 63 kg (139 lb) 06/26/2024 3:50 AM MANAGER OF LEARNING Height 157.5 cm (5' 2 ) 06/26/2024 3:50 AM MANAGER OF LEARNING Body Mass Index 25.42 06/26/2024 3:50 AM MANAGER OF LEARNING Plan of Treatment Upcoming Encounters Date Type Department Care Team (Late st Contact Info) Description 09/17/2024 10:15 AM CDT Office Visit [facility]-[address] [address] Shaun Gray MD [facility] [address] [place] [address] Health Maintenance Due Date Last Done Comments DTaP, Tdap and Td Vaccines ( 1 - Tdap) 12/14/1959 Annual Medicare Wellness Visit 12/14/2004 Dexa Scan (General) 12/14/2004 Pneumococcal Vaccine: 65+ Years (1 of 1 - PCV) 12/14/2004 Zoster Vaccines (2 of 3) 08/02/2008 06/07/2008 RSV Immunization or 60+ Years (1 - 1-dose 75+ series) 12/14/2014 COVID-19 Vaccine (3 - 2023-2 5 season) 2024 08/10/2020, 07/11/2020 Influenza Adult (#1) 2024 03/10/2020, 03/16/2019, 04/24/2018 Meningococcal B Vaccine Aged Out No l onger eligible based on patient's age to complete this topic Meningococcal Vaccine Aged Out No odell oleksandr eligible based on patient's age to complete this topic RSV Immunizations Under 20 Months Aged Out No longer eligible b ased on patient's age to complete this topic Procedures Procedure Name Priority Date/Time Associated Diagnosis Comments ECG 12-LEAD Routine 06/26/2024 5:16 AM MANAGER OF LEARNING TROPONIN, QUANT STAT 06/26/2024 4:20 AM MANAGER OF LEARNING COMPREHENSIVE METABOLIC PANEL STAT 06/26/2024 4:20 AM MANAGER OF LEARNING CBC W/DIFF AUTOMATED STAT 06/26/2024 4:20 AM MANAGER OF LEARNING XR CHEST PORTABLE STAT 06/26/2024 4:1 3 AM MANAGER OF LEARNING ECG 12-LEAD Routine 06/26/2024 3:50 AM MANAGER OF LEARNING from Last 3 Months Results * ECG 12 lead (06/26/2024 5:16 AM MANAGER OF LEARNING) Only the most recent of2 resultswithin the time period is included. 06/26/2024 5:16 AM MANAGER OF LEARNING Narrative [facility] - 06/26/2024 5:19 AM MANAGER OF LEARNING ?[facility] ? [address] [facility] [place] ? Test Date: ?2024-06-26 Pat Name: ? BETH RODRIGUEZ ?Department: ?? 41 ? Room: ? [id number] Gender: ? Female ? Inpatient Services Rn: ?? CB : ?1940 ? Requested By: DAVID STEVE Order Number: [id number] ? Reading : ?? Shaun Gray ? Measurements Intervals ?[place] ? Rate: ? 71 ? P: ?77 IN: ? 188 ?QRS: ?5 QRSD: ? 151 ?T: ?-30 QT: ? 435 ? QTc: ?476 ? Interpretive Statements SINUS RHYTHM RIGHT BUNDLE BRANCH BLOCK ??[120+ ms QRS DURATION, UPRIGHT V1, 40+ ms S IN I/aVL/V4/V5/V6] Compared to ECG 06/26/2024 03:50:44 Left anterior fascicular block no longer present GER OF LEARNING Procedure Note Shaun Gray MD - 06/26/[address] Test Date: 2024-06-26 Pat Name: BETH RODRIGUEZ Department: 41 Room: [place] [address] Gender: Female Inpatient Services Rn: ES : 1940 Requested By: DAVID STEVE Order Number: [id number] Reading MD: Shaun Gray Measurements Intervals [place] Rate: 71 P: 77 IN: 188 QRS: 5 QRSD: 151 T: -30 QT: 435 QTc: 476 Interpretive Statements SINUS RHYTHM RIGHT BUNDLE BRANCH BLOCK [120+ ms QRS DURATION, UPRIGHT V1, 40+ ms SIN I/aVL/V4/V5/V6] Compared to ECG 06/26/2024 03:50:44 Left anterior fascicular block no longer present GER OF LEARNING us David Steve DO ECG ORDERABLES Final Result [facility] RAD * (ABNORMAL) COMPREHENSIVE METABOLIC PANEL (06/26/2024 4:20 AM MANAGER OF LEARNING) GLUCOSE 125(H) 70 - 99 MG/DL 06/26/2024 5:06 AM [facility] BUN 17 7 - 18 MG/DL 06/26/2024 5:06 AM [facility] CREATININE S/P/B 0.84 0.55 - 1.02 MG/DL 06/26/2024 5:06 AM [facility] SODIUM S/P/B 136 136 - 145 MMOL/L 06/26/2024 5:06 AM [facility] POTASSIUM S/P/B 3.9 3.5 - 5.1 MMOL/L 06/26/2024 5:06 AM [facility] CHLORIDE S/P/B 104 97 - 115 MMOL/L 06/26/2024 5:06 AM [facility] CO2 26.9 21 - 32 MMOL/L 06/26/2024 5:06 AM [facility] CALCIUM S/P/B 9.6 8.5 - 10.1 MG/DL 06/26/2024 5:06 AM [facility] BILIRUBIN TOTAL S/P/B 0.5 0.2 - 1.2 MG/DL 06/26/2024 5:06 AM [facility] Comment: THIS ASSAY IS NOT RECOMMENDED FOR PATIENTS UNDERGOING TREATMENT WITH ELTROMBOPAG DUE TO THE POTENTIAL FOR FALSELY ELEVATED RESULTS. TOTAL PROTEIN S/P/B 7.3 6.4 - 8.2 G/DL 06/26/2024 5:06 AM [facility] ALBUMIN S/P/B 3.6 3.4 - 5.0 G/DL 06/26/2024 5:06 AM [facility] AST 25 15 - 37 U/L 06/26/2024 5:06 AM [facility] ALT 21 14 - 55 U/L 06/26/2024 5:06 AM [facility] ALKALINE PHOSPHATASE S/P/B 73 50 - 136 U/L 06/26/2024 5:06 AM [facility] ANION GAP 5.1 2 - 10 MMOL/L 06/26/2024 5:06 AM [facility] BUN CREATININE RATIO 20.1 6 - 26 06/26/2024 5:06 AM [facility] A/G RATIO 1.0 1.0 - 2.0 RATIO 06/26/2024 5:06 AM [facility] GFR ESTIMATE 68(L) >90 ML/MIN/1.7 3 M2 06/26/2024 5:06 AM [facility] Comment: NOTE: eGFR is not calculated for patients <18 years of age or gender unknown. This is an estimated GFR calculation using the new CKD EPI creatinine equation without race and so does not require a correction factor for race. This estimated GFR should not be used for calculating drug doses. 06/26/2024 4:20 AM MANAGER OF LEARNING Kay Benoit MD LABORATORY Final Result [facility] [address] [place] [address], * (ABNORMAL) CBC W/DIFF AUTOMATED (06/26/2024 4:20 AM MANAGER OF LEARNING) WBC 7.41 4.5 - 11.0 x10'3/uL 06/26/2024 4:51 AM MANAGER OF LEARNING [facility] RBC 4.44 4.20 - 5.40 x10'6/uL 06/26/2024 4:51 AM MANAGER OF LEARNING [facility] HGB 14.2 12.0 - 16.0 G/DL 06/26/2024 4:51 AM [facility] HCT 43.4 38.0 - 48.0 % 06/26/2024 4:51 AM [facility] MCV 97.7 81.0 - 99.0 FL 06/26/2024 4:51 AM MANAGER OF LEARNING [facility] MCH 32.0(H) 27.0 - 31.0 PG 06/26/2024 4:51 AM MANAGER OF LEARNING [facility] MCHC 32.7 32.0 - 36.0 G/DL 06/26/2024 4:51 AM [facility] RDW 12.6 11.5 - 14.5 % 06/26/2024 4:51 AM [facility] PLT 206 130 - 400 x10'3/uL 06/26/2024 4:51 AM [facility] MPV 10.2 9.3 - 12.2 FL 06/26/2024 4:51 AM [facility] DIFFERENTIAL TYPE AUTOMATED DIFFERENTIAL 06/26/2024 4:51 AM [facility] NEUTROPHILS % 61.3 % 06/26/2024 4:51 AM [facility] LYMPHOCYTES % 24.8 % 06/26/2024 4:51 AM [facility] MONOCYTES % 9.0 % 06/26/2024 4:51 AM [facility] EOSINOPHILS 3.8 % 06/26/2024 4:51 AM [facility] BASOPHILS 0.8 % 06/26/2024 4:51 AM [facility] IMMATURE GRANS % 0.3 % 06/26/19 4:51 AM [facility] ABS. NEUTROPHILS 4.54 1.80 - 7.70 x10'3/uL 06/26/2024 4:51 AM [facility] ABS. LYMPHOCYTES 1.84 1.00 - 4.80 x10'3/uL 06/26/2024 4:51 AM [facility] ABS. MONOCYTES 0.67 0.24 - 0.86 x10'3/uL 06/26/2024 4:51 AM [facility] ABS. EOSINOPHILS 0.28 0.04 - 0.36 x10'3/uL 06/26/2024 4:51 AM [facility] ABS. BASOPHILS 0.06 0.01 - 0.08 x10'3/uL 06/26/2024 4:51 AM [facility] ABS. IMMATURE GRANULOCYTES 0.02 0.00 - 0.49 x10'3/uL 06/26/2024 4:51 AM [facility] 06/26/2024 4:20 AM MANAGER OF LEARNING Kay Benoit MD LABORATORY Final Result [facility] [address] [place] [address], [place] [phone] * TROPONIN, QUANT (06/26/2024 4:20 AM MANAGER OF LEARNING) TROPONIN I HIGH SENSITIVITY 9 <54 ng/L 06/26/2024 5:06 AM MANAGER OF LEARNING [facility] Comment: HIGH DOSES OF BIOTIN, TROPONIN-SPECIFIC AUTOANTIBODIES, AND ANTIBODY THERAPY CONTAINING HAMA MAY INTERFERE WITH THIS TEST RESULT. CORRELATION TO CLINICAL HISTORY AND PRESENTATION RECOMMENDED. 06/26/2024 4:20 AM MANAGER OF LEARNING Kay Benoit MD LABORATORY Final Result Performing Organization Address City/[facility] Co de Phone Number [facility] [address] [place] [address], [place] [phone] * XR CHEST PORTABLE (06/26/2024 4:13 AM MANAGER OF LEARNING) Anatomical Region Laterality Modality Chest Radiographic Annette ging 06/26/2024 4:13 AM MANAGER OF LEARNING Impressions 06/26/2024 4:14 AM MANAGER OF LEARNING IMPRESSION: 1. ??NO RADIOGRAPHIC EVIDENCE OF ACTIVE DISEASE THE CHEST. Signed: Jeff Latif MD Referred By: ?? Interpreted By: Jeff Latif MD, 06/26/2024 4:13 AM Narrative 06/26/2024 4:14 AM MANAGER OF LEARNING [facility] [address] [place], [place] [address] PATIENT NAME: BETH RODRIGUEZ EXAM: Chest one view DATE OF EXAM: 06/26/2024 COMPARISON EXAM: None INDICATION: Palpitations TECHNIQUE: AP chest FINDINGS: Post midline sternotomy changes are noted. ??Nonspecific mild relative elevation of the right hemidiaphragm. ??Heart size and pulmonary vasculature within normal limits. ??No acute pulmonary parenchymal opacity. ??No pleural effusion. Procedure Note Jeff Latif MD - 06/26/[address] [address] PATIENT NAME: BETH RODRIGUEZ EXAM: Chest one view DATE OF EXAM: 06/26/2024 COMPARISON EXAM: None INDICATION: Palpitations TECHNIQUE: AP chest FINDINGS: Post midline sternotomy changes are noted. Nonspecific mildrelative elevation of the right hemidiaphragm. Heart size and pulmonaryvasculature within normal limits. No acute pulmonary parenchymal opacity.No pleural effusion. IMPRESSION: 1. NO RADIOGRAPHIC EVIDENCE OF ACTIVE DISEASE THE CHEST. Signed: Jeff Latif MD Referred By: Interpreted By: Jeff Latif MD, 06/26/2024 4:13 AM Kay Benoit MD GENERAL IMAGING Final Result from Last 3 Months Insurance AET Care Teams Shaker Washer Relationship Specialty Start Date End Date Renzo He MD [address] [place] [address] PCP - General FAMILY PRACTICE 03/24/24 Tonya Piedra MD [address] [place] [address] SURGERY 06/26/24
== END 2024-06-30 13:48 | disposition home or self-care (01) ==
LOC: ANHLAB 13:48
PROVIDERS: PCP Family Medicine; Visit Provider Family Medicine
DX: E11.9 Type 2 diabetes mellitus without complications (principal)
CPT/HCPCS: 36415; 82043; 83036

== ENCOUNTER 2024-07-08 12:26 | Outpatient (CLI) | payer MEDICARE, SELFPAY ==
--- NOTE | ~2024-07-08 | MM_ITS ---
EXAMINATION: MM screening [facility] HISTORY: Screening TECHNIQUE: Craniocaudal and mediolateral oblique 3-D tomosynthesis images were obtained and synthetic 2-D images were generated. CAD analysis was submitted and interpreted. COMPARISON: Comparison to multiple prior studies sequentially, with oldest reviewed study dated 02/05. BREAST PARENCHYMAL COMPOSITION: Not dense: There are scattered areas of fibroglandular density. FINDINGS: There is no evidence of suspicious mass, calcification, or architectural distortion to sugg est malignancy in either breast. There has been no suspicious interval change. IMPRESSION: 1. No mammographic evidence of malignancy. 2. Recommend routine screening mammography in one year. BI-RADS Category 1: Negative Reviewed, dictated and finalized at location A. ANALYSIS LABORATORY ASSISTANT
== END 2024-07-08 12:27 | disposition home or self-care (01) ==
LOC: MICIMG 12:27
PROVIDERS: PCP Family Medicine; Visit Provider Family Medicine
DX: Z12.31 Encounter for screening mammogram for malignant neoplasm of breast (principal)
CPT/HCPCS: 77063; 77067

== ENCOUNTER 2024-09-30 09:09 | Outpatient (CLI) | payer MEDICARE, SELFPAY ==
--- NOTE | ~2024-09-30 | US_ITS ---
Limited Abdominal Sonogram: Real-time sonographic imaging of the right upper quadrant was performed. Clinical History: Abnormal liver function Findings: The liver appears normal with no evidence of solid mass lesion or bile duct dilatation. 1. 6 cm hepatic cyst present. Main portal vein demonstrates normal direction of flow. The gallbladder is absent, compatible prior cholecystectomy. The common bile duct measures 3 mm. The visualized pancre as, aorta, and IVC are unremarkable. Impression: Status post cholecystectomy. 1.6 cm hepatic cyst. Reviewed, dictated and finalized at location M. Impression: Status post cholecystectomy. 1.6 cm hepatic cyst.
== END 2024-09-30 09:10 | disposition home or self-care (01) ==
LOC: MICIMG 09:10
PROVIDERS: PCP Family Medicine; Visit Provider Family Medicine
DX: R94.5 Abnormal results of liver function studies (principal); K76.89 Other specified diseases of liver
CPT/HCPCS: 76705

== ENCOUNTER 2024-10-11 12:11 | Outpatient (CLI) | payer MEDICARE, SELFPAY ==
--- OUTSIDE RECORDS SUMMARY | 2024-10-11 12:39 | XMS_ITS | Encounter Summary ---
Author Organization [facility] Address [address] [place] [address] Care Team Providers Care Proof Press Operator Name Role Phone Renzo He MD Primary Care Provider [phone] Reason for Visit * Reason Onset Date Comments Medication Issue 06/24/2024 Encounter Details Date Type Department Care Team (Late st Contact Info) Description 06/24/2024 Telephone [facility] - Cardiology [address] [facility] [address] [place] [address] Enio Sheehan MD [address] [place] [address] Medication Issue Social History Tobacco Use Types [...] and heating? Not hard at all 02/19/2024 [facility] Occup[facility] - Occupational Stress [...] place to sleep or slept in a penitentiary (including now)? No 02/19/2024 Comments Unknown Sex and Gender Information Value Date Recorded Sex Assigned at Not on file Legal Sex Female 6:48 PM INTEGRATION SOFTWARE ENGINEER Gender Identity Not on file Sexual Orientation Not on file documented as of this encounter Functional Status * Is person deaf or have serious hearing difficulty? Answer Date of Assessment Author Yes 02/22/2024 3:13 PM Karl Aaron RN * Is person blind or have serious difficulty seeing? Answer Date of Assessment Author No 02/22/2024 3:13 PM Karl Aaron RN * Does person have serious difficulty walking/climbing stairs? Answer Date of Assessment Author Yes 02/22/2024 3:13 PM Karl Aaron RN * Does person have difficulty dressing/bathing? Answer Date of Assessment Author No 02/22/2024 3:13 PM MORAT Karl Nayak RN * Does person have difficulty doing errands alone? Answer Date of Assessment Author Yes 02/22/2024 3:13 PM Karl Aarno RN documented as of this encounter Mental Status * Does person have difficulty concentrating/remembering/making decisions? Answer Entry Date Author No 02/22/2024 3:13 PM MORAT Karl Nayak RN documented in this encounter Miscellaneous Notes * Telephone Encounter - Valarie Cuevas - 06/24/2024 4:20 PM CST Reason for call: Patient would like a call back regarding her current concerns pertaining her medication she'd recently been prescribed. She stated she's been having a hard time with her oxygen levelup and she also been having trouble keeping a steady heart rate Patient Call Back number: [phone] GRATION SOFTWARE ENGINEER documented in this encounter Plan of Treatment Not on file documented as of this encounter Visit Diagnoses Not on filedocumented in this encounter Care Teams Proof Press Operator Relationship Specialty Start Date End Date Renzo He MD [address] [place] [address] PCP - General Family Medicine 02/10/24 documented as of this encounter
--- OUTSIDE RECORDS SUMMARY | 2024-10-11 12:39 | XMS_ITS | Clinical Summary ---
Author Organization [facility] [place] Address [facility] [place] [address] Care Team Providers Care Capsule Machine Operator Name Role Phone Renzo He MD Primary Care Provider [phone] Tonya Piedra MD Unavailable [phone] Allergies Active Allergy Reactions Criticality Noted Date Comments Cefuroxime Unknown 09/17/2024 Celecoxib Unknown 09/17/2024 Levofloxacin Unknown 09/17/2024 Succinylcholine Anaphylaxis High 02/03/2024 Medications ELIQUIS 2.5 MG tablet Take 1 tablet (2.5 mg total) by mouth 2 (two) times daily. Active atorvastatin (LIPITOR) 40 MG tablet Take 1 tablet (40 mg total) by mouth daily. Active carvedilol (COREG) 3.125 MG tablet Take 1 tablet (3.125 mg total) by mouth every 12 (twelve) hours. Active acetaminophen (TYLENOL) 500 MG tablet Take 1 tablet (500 mg total) by mouth every 6 (six) hours as needed. 4 Active fluticasone propionate (FLONASE) 50 MCG/ACT nasal spray 2 sprays by Each Nostril route daily as needed. Active ipratropium (ATROVENT) 0.06 % nasal spray 2 sprays by Nasal route 2 (two) times daily. 5 Active risedronate (ACTONEL) 35 MG tablet Take 1 tablet (35 mg total) by mouth every 7 days. 5 Active cetirizine (ZYRTEC) 10 MG tablet Take 1 tablet (10 mg total) by mouth daily. Active calcium carb-cholecalcif frankie (CALTRATE 600+D) 600-20 MG-MCG tablet Take 1 tablet by mouth daily. Active Nutritional Supplements (VITAL HIGH PROTEIN OR) Take 1 tablet by mouth daily. Active losartan (COZAAR) 50 MG tablet Take 1 tablet (50 mg total) by mouth daily. 90 tablet 2 Active losartan (COZAAR) 25 MG tablet Take 1 tablet (25 mg total) by mouth daily. 09/18/19 Discontinu ed(Dose adjustment ) aspirin EC (ECOTRIN) 81 MG tablet Take 1 tablet (81 mg total) by mouth daily. 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[facility]) Encounters Date Type Department Care Team Description 10/05/2024 Telephone [facility], [address] [address] Shaun Gray MD Surgical Clearance 09/27/2024 Telephone [facility], [address] [address] Shaun Gray MD Blood Pressure 09/17/2024 10:15 AM CDT Office Visit [facility] [address] Shaun Gray MD Atrial Fibrillation (Consult); Hypertension; Lipids 09/17/2024 Travel from Last 3 Months Immunizations Immunization Administration Dates Next Due MODERNA COVID-19 (12+) MRNA, LNP-S, PF, 100 MCG/ 0.5 ML DOSE 08/10/2020 Family History Medical History Relation Comments Diabetes Brother Heart Attack Brother Hypertension Brother CHF Father Heart Attack Father Hypertension Father Heart Attack Maternal Grandmother Diabetes Mother Hypertension Mother Stroke Mother Heart Attack Paternal Grandmother Relation Status Comments Brother Father Maternal Grandfather Maternal Grandmother Mother Paternal Grandfather Paternal Grandmother Social History Tobacco Use Types Packs/Day Years Used Date Smoking Tobacco: Never Passive Smoke Exposure: Never Smokeless Tobacco: Never Tobacco Cessation:Counseling Given: Not Answered Alcohol Use Standard Drinks/Week Comments Never 0 (1 standard drink = 0.6 oz pur e alcohol) Comments No Sex and Gender Information Value Date Recorded Sex Assigned at Female 06/26/2024 5:43 AM COMIC ILLUSTRATOR Legal Sex Female 6:29 AM COMIC ILLUSTRATOR Gender Identity Female 06/26/2024 5:47 AM COMIC ILLUSTRATOR Sexual Orientation Straight 06/26/2024 5: 47 AM COMIC ILLUSTRATOR Occupation Industry Job Start Date Job End Date Retired Not on file Not on file Not on file Last Filed Vital Signs Vital Sign Reading Time Taken Comments Blood Pressure 162/54 09/17/2024 10:28 AM CDT Pulse 59 09/17/2024 10:28 AM CDT Temperature 36.7 C (98 F) 06/26/2024 3:50 AM COMIC ILLUSTRATOR Respiratory Rate 17 06/26/2024 6:00 AM COMIC ILLUSTRATOR Oxygen Saturation 93% 06/26/2024 6:00 AM COMIC ILLUSTRATOR Inhaled Oxygen Concentration - - Weight 63 kg (139 lb) 09/17/2024 10:28 AM CDT Height 157.5 cm (5' 2 ) 09/17/2024 10:28 AM CDT Body Mass Index 25.42 09/17/2024 10:28 AM CDT Plan of Treatment Upcoming Encounters Date Type Department Care Team (Late st Contact Info) Description 03/18/2025 10:00 AM CDT Office Visit [facility] [address] Shaun Gray MD [address] [facility] [place] [address] Health Maintenance Due Date Last Done Comments Kidney Health Evaluation 1940 Diabetes: Retinopathy Eye Exam 12/14/1957 DTaP, Tdap and Td Vaccines ( 1 - Tdap) 12/14/1958 Pneumococcal Vaccine: 50+ Years (1 of 2 - PCV) 12/14/1958 Annual Medicare Wellness Visit 12/14/2004 Dexa Scan (General) 12/14/2004 Zoster Vaccines (2 of 3) 08/02/2008 06/07/2008 RSV Immunization or 60+ Years (1 - 1-dose 75+ series) 12/14/2014 COVID-19 Vaccine (3 - 2023-2 5 season) 2024 08/10/2020, 07/11/2020 Hemoglobin A1C 08/06/2024 02/05/2024 Lipid Panel 02/04/2025 02/05/2024 Meningococcal B Vaccine Aged Out No l onger eligible based on patient's age to complete this topic Meningococcal Vaccine Aged Out No odell oleksandr eligible based on patient's age to complete this topic RSV Immunizations Under 20 Months Aged Out No longer eligible b ased on patient's age to complete this topic Insurance AET Care Teams Capsule Machine Operator Relationship Specialty Start Date End Date Renzo He MD [address] [place] [address] PCP - General FAMILY PRACTICE 03/24/24 Tonya Piedra MD [address] [place] [address] SURGERY 06/26/24
--- OUTSIDE RECORDS SUMMARY | 2024-10-11 12:39 | XMS_ITS | Clinical Summary ---
Author Organization [facility] Address [address] [place] [address] Care Team Providers Care Satellite Tv Technician Installer Name Role Phone Renzo He MD Primary Care Provider Source Comments [facility],non-owned Affiliates and Associated Physician Practices is amultiple site organization consisting of ambulatory clinics and hospital sitesin [place], [place], [place] and [place]. This disclosure is being madepursuant to the Care Everywhere program and may not contain all information available regarding this patient. Last updated 18.[facility] Allergies Active Allergy Reactions Criticality Noted Date Comments Succinylcholine Anaphylaxis High 02/03/2024 Medications * Be aware that medications may not be up to date on this document. Alwaysverify current medications with the patient. acetaminophen (Tylenol) 500 MG tablet Take 1 (one) tablet by mouth every 6 hours as needed Maximum allowable Acetaminophen amount = 4 Grams (4000 mg) / 24 hours. 60 tablet 1 02/22/20 24 Active fluticasone propionate (Flonase) 50 MCG/ACT nasal sprayIndications:N maría Congestion,Rhinosi nusitis Ralph 2 (two) sprays into each nostril once daily as needed (congestion, rhinosinusitis) Reasons: Inflammation of the Sinuses and the Nose, Stuffy Nose 16 g 1 02/22/20 24 Active Oxygen Oxygen with portability - continuous at 1L/min at rest and 2 L/min with activity via nasal cannula - Estimate length of need (number of months): 3 1 Each 02/22/20 Active Additional Information Patient taking differently: Oxygen with portability - continuous at 1L/min at rest and 2 L/min with activity via nasal cannula- Estimate length of need (number of months): 32 liter of O2 at night, Reported on 09/23/2024 apixaban (Eliquis) 2.5 MG tabletIndications: Atrial Fibrillation [...] daily with morning and evening meal 06/28/19 Active Active Problems Problem Noted Date Diagnosed Date Persistent atrial fibrillation 06/17/2024 T2DM (type 2 diabetes mellitus) 02/04/2024 Endotracheally intubated 02/04/2024 H/O mitral valve prolapse 02/04/2024 History of repair of hiatal hernia 02/04/2024 Other acute back pain 02/03/2024 Type 1 dissection of ascending aorta 02/03/2024 Intramural aortic hematoma 02/02/2024 Encounters Date Type Department Care Team Description 09/23/2024 1:00 PM CDT Office Visit [facility] Cardiothoracic Surgery [address] [facility] [place] [address] Tonya Piedra MD S/P aortic dissection repair (Primary Dx) 09/23/2024 11:45 AM CDT - 09/23/2024 11:59 PM CDT Hospital Encounter [facility] [address] [place] [address] Tonya Piedra MD Discharge Disposition: Home or Self Care 09/23/2024 Travel 08/11/2024 Travel from Last 3 Months Social History Tobacco [...] and heating? Not hard at all 02/19/2024 [facility] - [facility] Stress [...] place to sleep or slept in a intermediate (including now)? 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 Gender Identity Not on file Sexual Orientation Not on file Last Filed Vital Signs Vital Sign Reading Time Taken Comments Blood Pressure 152/92 09/23/2024 12:51 PM CDT Pulse 86 09/23/2024 12:51 PM CDT Temperature 36.6 C (97.9 F) 09/23/2024 12:51 PM CDT Respiratory Rate 18 03/18/2024 1:58 PM CDT Oxygen Saturation 92% 09/23/2024 12:51 PM CDT Inhaled Oxygen Concentration 40% 02/13/2024 9 :00 AM CDT Weight 68.9 kg (152 lb) 09/23/2024 12:51 PM CDT Height 157.5 cm (5' 2 ) 09/23/2024 12:51 PM CDT Body Mass Index 27.8 09/23/2024 12:51 PM CDT Plan of Treatment Health Maintenance Due Date Last Done Comments [...] 2024 04/16/2023, 04/11/2022, 04/05/2021, Additional history exists DEPRESSION SCREENING 06/09/2024 DIABETES - URINE PROTEIN SCREENING 06/09/2024 MEDICARE AWV CALENDAR YEAR 2024 DIABETES-HGB A1C 08/06/2024 02/05/2024 INFLUENZA VACCINE (Season Ended) 2025 04/02/2023, 04/11/2022, 02/14/2021, Additional history exists DIABETES-SERUM CREATININE 09/23/20252024, 06/26/2024, 06/26/2024, Additional history exists HEPATITIS B VACCINE Aged Out No longe r eligible based on patient's age to complete this topic HIB VACCINE Aged Out No longer eligi ble based on patient's age to complete this topic HPV VACCINE Aged Out No longer eligi ble based on patient's age to complete this topic MENINGOCOCCAL (Group B) VACCINE SHARED DECISION-MAKING Aged Out No longer eligible based on patient's age to complete this topic MENINGOCOCCAL GROUPS A/C/Y/W VACCINE Aged Out No longer eligible based on patient's age to complete this topic Medical Devices Implanted Type Area Service Tester Device Identifier Shelf Expiration Date Model / Serial / Lot Graft Cv 10mm 30cm [facility] [address] Polystr 2 Vlr - [id number] Implanted:Qty: 1 on 02/03/2024 by Tonya Piedra MD at [facility] N/A: Subclavian Maquet 09/06/2028 [id number] / [id number] Description: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 [place] Cv 6x6in Thk1.65mm Ptfe Ptch Strl Implanted:Qty: 2 on 02/03/2024 by Tonya Piedra MD at [facility] N/A: Aorta [employer] 06/05/2028 [id number] / [id number] Procedures Procedure Name Priority Date/Time Associated Diagnosis Comments CT ANGIO AORTA FOR DISSECTION Routine 09/23/2024 12:15 PM CDT S/P aortic dissection repair CREATININE - POCT INTERFACED Routine 09/23/2024 11:57 AM CDT HEMOGLOBIN A1C Routine 02/05/2024 3:13 AM CDT from Last 3 Months or Most Recently Relevant to Health Maintenance Results * CT Angio Aorta for Dissection (09/23/2024 12:15 PM CDT) Anatomical Region Laterality Modality Abdomen Computed Tomogra phy 09/23/2024 1:11 PM CDT Impressions 09/23/2024 4:19 PM CDT Impression: 1.Postsurgical changes of type aortic dissection with graft without evidence of contrast extravasation. The graft appears intact. 2.Nodular liver surface concerning for hepatic parenchymal disease, unchanged. > Dictated by Sybil Travis MD (vice president precision market insights). I, Nakul Almanzar MD have personally reviewed and interpreted this examination/study. > Interpreting Provider: Nakul Almanzar MD on 09/23/2024 4:19 PM Narrative 09/23/2024 4:19 PM CDT PROCEDURE: CT ANGIO AORTA FOR DISSECTION, DATE/TIME OF EXAM: 09/23/2024 12:16 PM, LOCATION [facility] INDICATION: Z98.890: S/P aortic dissection repair COMPARISON: CT angiogram aorta for dissection dated 02/16/2024 TECHNIQUE: CT of the chest, abdomen, and pelvis was performed prior to and following the uneventful administration of 100 mL of Isovue 370 intravenous contrast according to an angiogram dissection protocol. Three dimensional postprocessing was performed by the technologist and sent to the workstation for review. Findings: Thoracic aorta: Postsurgical changes of type a aortic dissection repair are present. The graft appears intact. No intimal flap, intramural hematoma, penetrating atherosclerotic ulcer, or aneurysm. Thoracic aortic branches: Subclavian arteries: Patent without significant focal stenosis. Brachiocephalic artery: Patent without significant focal stenosis. Retropharyngeal course of the bilateral internal carotid artery. Pulmonary artery: Normal. Coronary arteries: Atherosclerotic. Abdominal aorta: No aortic dissection, intramural hematoma, penetrating atherosclerotic ulcer, or aneurysm. Abdominal aortic branches: Celiac axis: Atherosclerotic at its origin but patent without significant focal stenosis. Superior mesenteric artery: Atherosclerotic but patent without significant focal stenosis. Inferior mesenteric artery: Patent without significant focal stenosis. Right renal artery: Atherosclerotic but patent without significant focal stenosis. Left renal artery: Atherosclerotic but patent without significant focal [...] Chest: Lower Neck and Axillae: Normal. Lungs: Bilateral dependent and subsegmental atelectasis. No suspicious pulmonary nodules are identified. No pleural fluid or pneumothorax is present. Heart and Pericardium: The cardiac chambers are normal in size. No pericardial fluid or thickening is present. The coronary arteries are atherosclerotic. Mediastinum and Miriam: No mediastinal hemorrhage is present. No enlarged lymph nodes are present. Abdomen/pelvis: Liver: Multiple subcentimeter hypoattenuating hepatic lesions with simple fluid attenuation, largest one measuring 1.6 cm in hepatic segment 3, are indeterminant but likely representing hepatic cyst. The liver surface is nodular. Gallbladder and Bile Ducts: The gallbladder is absent. Spleen: Multiple calcified granulomas are noted in the spleen, likely sequelae of prior granulomatous disease. Pancreas: Pancreas is mildly atrophic. Pancreatic calcification with in the distal pancreatic body likely sequela of prior pancreatitis. Adrenals: Normal. Kidneys: Demonstrated a right kidney cyst. No evidence of hydronephrosis. Gastrointestinal: The stomach and visualized loops of small bowel are unremarkable. Colonic diverticulosis without evidence of diverticulitis is seen. Normal appendix. Mesentery/Peritoneum/Retroperitoneum: No free intraperitoneal air. No free fluid in the abdomen or pelvis. Bladder: The bladder is partially distended. Reproductive Organs: The uterus is absent. Bones: Bone windows demonstrate no suspicious lytic or blastic lesions. The visible osseous structures are intact. Degenerative changes are seen in the spine. Median sternotomy wires. Soft tissues: Normal. Procedure Note Nakul Almanzar MD - 09/23/2024 PROCEDURE: CT ANGIO AORTA FOR DISSECTION, DATE/TIME OF EXAM: 09/23/2024 12:16 PM, LOCATION [facility] INDICATION: Z98.890: S/P aortic dissection repair COMPARISON: CT angiogram aorta for dissection dated 02/16/2024 TECHNIQUE: CT of the chest, abdomen, and pelvis was performed prior toand following the uneventful administration of 100 mL of Isovue 370intravenous contrast according to an angiogram dissection protocol. Threedimensional postprocessing was performed by the technologist and sent to the workstation for review. Findings: Thoracic aorta: Postsurgical changes of type a aortic dissection repairare present. The graft appears intact. No intimal flap, intramural hematoma, penetrating atherosclerotic ulcer, or aneurysm. Thoracic aortic branches: Subclavian arteries: Patent without significant focal stenosis. Brachiocephalic artery: Patent without significant focal stenosis. Retropharyngeal course of the bilateral internal carotid artery. Pulmonary artery: Normal. Coronary arteries: Atherosclerotic. Abdominal aorta: No aortic dissection, intramural hematoma, penetrating atherosclerotic ulcer, or aneurysm. Abdominal aortic branches: Celiac axis: Atherosclerotic at its origin but patent withoutsignificant focal stenosis. Superior mesenteric artery: Atherosclerotic but patent withoutsignificant focal stenosis. Inferior mesenteric artery: Patent without significant focal stenosis. Right renal artery: Atherosclerotic but patent without significant focal stenosis. Left renal artery: Atherosclerotic but patent without significant focal [...] Chest: Lower Neck and Axillae: Normal. Lungs: Bilateral dependent and subsegmental atelectasis. No suspiciouspulmonary nodules are identified. No pleural fluid or pneumothorax is present. Heart and Pericardium: The cardiac chambers are normal in size. No pericardial fluid orthickening is present. The coronary arteries are atherosclerotic. Mediastinum and Miriam: No mediastinal hemorrhage is present. No enlarged lymph nodes arepresent. Abdomen/pelvis: Liver: Multiple subcentimeter hypoattenuating hepatic lesions with simple fluid attenuation, largest one measuring 1.6 cm in hepatic segment 3, are indeterminant but likely representing hepatic cyst. The liver surface is nodular. Gallbladder and Bile Ducts: The gallbladder is absent. Spleen: Multiple calcified granulomas are noted in the spleen, likely sequelaeof prior granulomatous disease. Pancreas: Pancreas is mildly atrophic. Pancreatic calcification with in the distal pancreatic body likely sequela of prior pancreatitis. Adrenals: Normal. Kidneys: Demonstrated a right kidney cyst. No evidence of hydronephrosis. Gastrointestinal: The stomach and visualized loops of small bowel are unremarkable.Colonic diverticulosis without evidence of diverticulitis is seen. Normalappendix. Mesentery/Peritoneum/Retroperitoneum: No free intraperitoneal air. No free fluid in the abdomen or pelvis. Bladder: The bladder is partially distended. Reproductive Organs: The uterus is absent. Bones: Bone windows demonstrate no suspicious lytic or blastic lesions. The visible osseous structures are intact. Degenerative changes are seen inthe spine. Median sternotomy wires. Soft tissues: Normal. Impression: 1.Postsurgical changes of type aortic dissection with graft without evidence of contrast extravasation. The graft appears intact. 2.Nodular liver surface concerning for hepatic parenchymal disease, unchanged. > Dictated by Sybil Travis MD (vice president [employer]). I, Nakul Almanzar MD have personally reviewed and interpreted this examination/study. > Interpreting Provider: Nakul Almanzar MD on 09/23/2024 4:19 PM us Tonya Piedra MD CT ORDERABLES Final Resul t * (ABNORMAL) CREATININE - POCT INTERFACED (09/23/2024 11:57 AM CDT) Creatinine POCT 0.83 0.30 - 1.30 mg/dL 09/23/2024 12:05 PM CDT [facility] eGFR 69(L) >=90 mL/min/1.7 3 m2 09/23/2024 12:05 PM T [facility] Blood BLOOD SPECIMEN / Unknown 09/23/2024 11:57 AM CDT 09/23/2024 12:05 PM CDT us Tonya Piedra MD LAB - POINT OF CARE ORDERAB LES Final Result [facility] [address] [place] [address], [facility] [phone] * HEMOGLOBIN A1C (02/05/2024 3:13 AM CDT) Hemoglobin A1c 5.6 <=5.6 % 02/05/2024 9:22 AM T [facility] Estimated Average Glucose 114 mg/dL 02/05/2024 9:22 AM T [facility] Comment: HbA1c Interpretation: Normal : < 5.7% Pre-diabetes: 5.7-6.4% Diabetes: Equal to or greater than 6.5% Test results diagnostic of diabetes should be repeated for confirmation. Treatment target values recommended by ADA and other clinical organizations should be used to evaluate metabolic control in patients. Reference: [place] Diabetes Association, Standards of Care in Diabetes -2020 In patients 70 years and older consider HbA1c target range of 7.0-7.5% (Reference: David Jesus et al. JAMDA. 2012) The Sebia assay for the measurement of HbA1c is a National Glycohemoglobin Standardization Program (NGSP) certified method. Blood BLOOD SPECIMEN / Unknown Venipuncture / Unknown 02/05/2024 3:13 AM CDT 02/05/2024 3:26 AM CDT Reza Velasquez Brant JANITOR CLEANER-REDRAWER LAB - CHEMISTRY ORDERABLES Final Result [facility] [address] [place] [address], [facility] [phone] from Last 3 Months or Most Recently Relevant to Health Maintenance Insurance AETNA MEDICARE ADV Advance Directives * Full Code (Latest Code Status on File) Date Activated Date Inactivated Comments 02/03/2024 10:42 PM 02/22/2024 5:09 PM Care Teams Satellite Tv Technician Installer Relationship Specialty Start Date End Date Renzo He MD [address] [place] [address] PCP - General Family Medicine 02/10/24
--- OUTSIDE RECORDS SUMMARY | 2024-10-11 12:39 | XMS_ITS | Continuity of Care Document ---
Author Organization [facility] Address [address] [place] [address] Phone Care Team Providers Care Mutual Fund Accountant Name Role Phone Ana Mendez Unavailable Unavailable Procedures Procedure Date Eye Exam & Treatment Refraction Eye Exam & Treatment Eye Exam & Treatment Eye Exam & Treatment Eye Exam Established Pt Advance Directives Directive Yes / No Effective Date File Name No Information Encounters Encounter Description Practice Location Reason(s) For Visit Diagnoses Date Provider Providers Copied on Encounter [facility], [address] [place] [address] [address], [place], [place], [id number], tel:[phone] [facility] No Information Sep-2 4-201 0 Vanessa Perez. [address] , [address], [place], [place], [facility], . tel:[phone] [facility], [address] [place] [address] [address], [place], [place], [id number], [place] tel:[phone] [facility] No Information Sep-1 8-200 9 Krishmarianela Gurmeet. [address], [place], [place], [facility], . tel:[phone] [facility], [address], [place], [place], [id number], tel:[phone] [facility] No Information Sep-1 7-200 8 Krishnasamy Gurmeet. [address], [place], [address], [place]. tel:[phone] [facility], [address], [place], [place], [id number], [place] tel:[phone] [facility] No Information Sep- 7200 7 Cori Juan. [address], [address], [place], [place], [id number], [place]. tel:[phone] [facility], [address], [place], [place], [id number], [place] tel:[phone] [facility] No Information 2200 7 Vanessa Hutchinsn. [address] [facility] [address], [place], [address], [place]. tel:[phone] Family History Family Member Type Diagnosis Age At Onset No Information Payers Payer name Insurance type Covered alliance party ID Authoriza tion(s) No Information Social [...]
[2024-10-11 13:11] LABS: Basophils Percent Auto 0.3 % (0.2-1.2); Eosinophils Absolute Auto 0.2 K/mm3 (0-0.3); Eosinophils Percent Auto 1.5 % (0-4.4); Hematocrit 44.7 % (37.0-47.0); Hemoglobin 13.7 g/dL (12.0-15.0); Immature Granulocyte Absolute 0.03 K/mm3 (0.00-0.031); Immature Granulocyte Percent A 0.3 % (0-0.5); Lymphocytes Absolute Auto 1.57 K/mm3 (0.9-3.2); Lymphocytes Percent Auto 15.1 % (18.3-44.2); Mean Corpuscular HGB Conc 30.6 g/dl (32-36); Mean Corpuscular Hemoglobin 31.3 pg (26-34); Mean Corpuscular Volume 102.1 fl (80-100); Mean Platelet Volume 10.2 fl (7.4-10.4); Monocytes Absolute Auto 0.7 K/mm3 (0.1-0.6); Monocytes Percent Auto 6.8 % (2.6-8.5); Neutrophils Absolute Auto 7.9 K/mm3 (1.3-6.7); Platelet Count Result 182 k/mm3 (150-375); Red Blood Count 4.38 M/mm3 (4.2-5.4); Red Cell Distribution Width 12.5 % (11.5-14.5); White Blood Count 10.4 K/mm3 (4.5-10.0)
[2024-10-11 13:31] LABS: Alanine Aminotransferase 19 U/L (6-35); Albumin Level 4.9 g/dL (3.5-5.1); Alkaline Phosphatase 90 U/L (38-126); Anion Gap 10 mmol/L (4-12); Aspartate Amino Transferase 36 U/L (14-36); Blood Urea Nitrogen 17 mg/dL (7-17); Calcium 9.5 mg/dL (8.4-10.2); Carbon Dioxide 32 mmol/L (22-30); Chloride 97 mmol/L (98-107); Estimated Glomerular Filt Rate > 60; Glucose 109 mg/dL (65-110); Magnesium 2.1 mg/dL (1.6-2.3); Potassium 4.3 mmol/L (3.4-5.0); Sodium 139 mmol/L (137-145)
[2024-10-11 13:50] LABS: Hemoglobin A1C 5.9 % (<5.7)
[2024-10-11 13:53] LABS: Vitamin D 25 Hydroxy 40.7 ng/mL
== END 2024-10-11 12:12 | disposition home or self-care (01) ==
LOC: ANHLAB 12:12
PROVIDERS: PCP Family Medicine; Visit Provider Family Medicine
DX: G25.81 Restless legs syndrome (principal); Z79.899 Other long term (current) drug therapy; I10 Essential (primary) hypertension; E78.2 Mixed hyperlipidemia; E11.9 Type 2 diabetes mellitus without complications; E55.9 Vitamin D deficiency, unspecified; E87.1 Hypo-osmolality and hyponatremia; K75.81 Nonalcoholic steatohepatitis (NASH); K74.60 Unspecified cirrhosis of liver
CPT/HCPCS: 36415; 80053; 82306; 83036; 83735; 85025

== ENCOUNTER 2024-10-27 10:06 | Outpatient (CLI) | payer MEDICARE, SELFPAY ==
--- NOTE | ~2024-10-27 | DEXA_ITS ---
Bone Density Report Name: BETH HAYS Age: 83 Sex: Female Ethnicity: White Date of : 1940 Indication: osteopenia; monitoring treatment; height loss; prior fracture; hysterectomy; Referring Provider: CUATE ASHRAF Study: Bone densitometry was performed. Exam Date: October 27, 2024 Accession number: [id number] Bone Density: Region BMD T-score Z-score Classification AP Spine(L1, L2) 0.902 -0.7 2.0 Normal Femoral Neck (Left) 0.598 -2.3 0.3 Osteopenia Total Hip (Left) 0.739 -1.7 0.7 Osteopenia Femoral Neck (Right) 0.655 -1.7 0.8 Osteopenia Total Hip (Right) 0.776 -1.4 1.0 Osteopenia Total Hip Mean 0.758 -1.6 0.9 Osteopenia World Health Organization criteria for BMD impression classify patients as: Normal (T-score at or above -1.0), Osteopenia (T-score between -1.0 and -2.5), or Osteoporosis (T-score at or below -2.5). 10-year Fracture Risk: FRAX not reported because: Prior hip or vertebral fracture Treated for osteoporosis Previous Exams: -- Region Exam Age BMD T-score BMD Change BMD Change Date g/cm2 vs Baseline vs Previous -- AP Spine (L1-L2) 10/27/2024 83 0.902 -0.7 1.3% -5.3%* 10/16/2022 81 0.952 -0.2 6.9%* 4.4%* 06/14/2020 79 0.912 -0.6 2.4% -2.3% 04/28/2017 76 0.934 -0.4 4.8%* -2.3% 04/26/2015 74 0.956 -0.2 7.3%* -1.5% 12/17/2012 72 0.970 -0.1 8.9%* 1.5% 12/05/2010 69 0.956 -0.2 7.3%* 7.8%* 11/16/2008 67 0.887 -0.8 -0.4% -0.4% 11/11/2005 64 0.891 -0.8 Total Hip(Left) 10/27/2024 83 0.739 -1.7 -18.4%* -3.5% 10/16/2022 81 0.766 -1.4 -15.5%* -7.7%* 06/14/2020 79 0.830 -0.9 -8.4%* -4.6%* 04/28/2017 76 0.870 -0.6 -4.0%* 1.8% 04/26/2015 74 0.855 -0.7 -5.7%* 4.6%* 12/17/2012 72 0.817 -1.0 -9.8%* 5.2%* 12/05/2010 69 0.777 -1.4 -14.2%* 4.0%* 11/16/2008 67 0.747 -1.6 -17.5%* -17.5%* 11/11/2005 64 0.906 -0.3 Total Hip(Right) 10/27/2024 83 0.776 -1.4 -10.2%* -7.3%* 10/16/2022 81 0.837 -0.9 -3.1% 0.1% 06/14/2020 79 0.836 -0.9 -3.2%* -1.4% 04/28/2017 76 0.848 -0.8 -1.8% 0.4% 04/26/2015 74 0.845 -0.8 -2.2% 3.2% 12/17/2012 72 0.819 -1.0 -5.2%* 3.8%* 12/05/2010 69 0.788 -1.3 -8.7%* 6.8%* 11/16/2008 67 0.738 -1.7 -14.5%* -14.5%* 11/11/2005 64 0.864 -0.6 -- *Denotes significance at 95% confidence level, LSC for AP Spine = 0.022 g/cm2, LSC for Total Hip = 0.027 g/cm2 Rate of change results reflect vertebral levels common to all scans Clinical Information Provided by Patient: Have had a previous hip or vertebral fracture Has had a low trauma fracture Is being treated for osteoporosis Has used the following medications: Actonel (i.e. risedronate), Fosamax (i.e. alendronate), Vitamin D, Calcium Has the following medical conditions: Hysterectomy Patient maximum height was 63.0 Menopause Age: 53 No regular weight bearing exercise Onset of menses at age 11 Number of children 2 Impression: The patient has low bone mass, based on the Left Femoral Neck T-score. The patient has risk factors, including: previous fracture. The BMD for the AP Spine (L1-L2) decreased, changing by -5.3% since the last DXA exam. The BMD for the Total Hip(Right) decreased, changing by -7.3% since the last DXA exam. Discussion: SIGNIFICANT BONE LOSS OBSERVED. Adherence to therapy (including calcium and vitamin D intake) should be assessed. If compliance is not a factor, review management and exclusion of secondary causes of bone loss. It is important to ask patients whether they are taking their medications and to encourage continued and appropriate compliance with their osteoporosis therapies to reduce fracture risk. It is also important to review their risk factors and encourage appropriate calcium and vitamin D intakes, exercise, fall prevention and other lifestyle measures. Follow-Up: Consider a repeat BMD and Vertebral Fracture Assessment (VFA) exam in 2 years or sooner if medically necessary, to reassess this patient's status. Reported by: GRAY on 10/27/2024 11:00:00 AM. Reviewed, dictated and finalized at location A. BONNIE
== END 2024-10-27 10:07 | disposition home or self-care (01) ==
LOC: MICIMG 10:07
PROVIDERS: PCP Family Medicine; Visit Provider Family Medicine
DX: M81.0 Age-related osteoporosis without current pathological fracture (principal); M85.852 Other specified disorders of bone density and structure, left thigh; M85.851 Other specified disorders of bone density and structure, right thigh
CPT/HCPCS: 77080

== ENCOUNTER 2024-11-24 09:00 | Outpatient (CLI) | payer MEDICARE, SELFPAY ==
--- OUTSIDE RECORDS SUMMARY | 2024-11-24 09:34 | XMS_ITS | Encounter Summary ---
Author Organization [facility] Address [address] [place] [address] Care Team Providers Care Pharmacist In Charge Owner Name Role Phone Renzo He MD Primary Care Provider [phone] Reason for Visit * Reason Onset Date Comments Medication Issue 06/24/2024 Encounter Details Date Type Department Care Team (Late st Contact Info) Description 06/24/2024 Telephone [facility] - Cardiology [address] [facility] [address] [place] [address] Enio Sheehan MD [address] [place] [address] Medication Issue Social History Tobacco Use Types [...] and heating? Not hard at all 02/19/2024 [facility] [place] of Occupat ional Health - Occupational Stress [...] place to sleep or slept in a fpc (including now)? 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
--- OUTSIDE RECORDS SUMMARY | 2024-11-24 09:34 | XMS_ITS | Clinical Summary ---
Author Organization [facility] Address [address] [facility] [place] [address] Care Team Providers Care Medicaid Plan Compliance Director Name Role Phone Renzo He MD Primary Care Provider [phone] [facility],non-owned Affiliates and Associated Physician Practices is amultiple site organization consisting of ambulatory clinics and hospital sitesin [place], [place], [place] and [place]. This disclosure is being madepursuant to the Care Everywhere program and may not contain all information available regarding this patient. Last updated 18.[facility] Allergies Active Allergy Reactions Criticality Noted Date [...] 50 MCG/ACT nasal sprayIndications:N maría Congestion,Rhinosi nusitis [place] 2 (two) sprays into each nostril once [...] Description 09/23/2024 1:00 PM CDT Office Visit [facility] - Cardiothoracic Surgery [address] [facility] [place] [address] Tonya Piedra MD S/P aortic dissection repair (Primary Dx) 09/23/2024 11:45 AM CDT - 09/23/2024 11:59 PM CDT Hospital Encounter [facility] [address] [place] [address] Tonya Piedra MD Discharge Disposition: Home or Self Care 09/23/2024 Travel from Last 3 Months Social History [...] and heating? Not hard at all 02/19/2024 [facility] [place] of Occupat ional Health - Occupational Stress [...] place to sleep or slept in a custodial (including now)? No 02/19/2024 Comments Unknown Sex and Gender Information Value Date Recorded Sex Assigned at Not on file Legal Sex Female 6:48 PM RN PSYCH Gender Identity Not on file Sexual Orientation [...] 12:51 PM CDT Height 157.5 cm (5' 2) 09/23/2024 12:51 PM CDT Body Mass Index [...] this topic Medical Devices Implanted Type Area Note Specialist Device Identifier Shelf Expiration Date Model / Serial / Lot Graft Cv 10mm 30cm [facility] [address] Polystr 2 Vlr - [id number] Implanted:Qty: 1 on 02/03/2024 by Tonya Piedra MD at [facility] N/A: Subclavian Maquet 09/06/2028 [id number] / [id number] Description: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 [place] Cv 6x6in Thk1.65mm Ptfe Ptch Strl Implanted:Qty: 2 on 02/03/2024 by Tonya Piedra MD at [facility] N/A: Aorta [employer] Peripheral Vascular 06/05/2028 [id number] / / [id number] Procedures Procedure Name Priority Date/Time Associated Diagnosis [...] unchanged. > Dictated by Sybil Travis MD (radiology transcriptionist). I, Nakul Almanzar MD have personally reviewed and interpreted this examination/study. > Interpreting Provider: Nakul Almanzar MD on 09/23/2024 4:19 PM Narrative 09/23/2024 4:19 PM CDT PROCEDURE: CT ANGIO AORTA FOR DISSECTION, DATE/TIME OF EXAM: 09/23/2024 12:16 PM, LOCATION [facility] INDICATION: Z98.890: S/P aortic dissection repair COMPARISON: [...] DATE/TIME OF EXAM: 09/23/2024 12:16 PM, LOCATION [facility] INDICATION: Z98.890: S/P aortic dissection repair COMPARISON: [...] unchanged. > Dictated by Sybil Travis MD (radiology transcriptionist). I, Nakul Almanzar MD have personally reviewed and interpreted this examination/study. > Interpreting Provider: Nakul Almanzar MD on 09/23/2024 4:19 PM us Tonya Piedra MD CT ORDERABLES Final Resul t * (ABNORMAL) CREATININE - POCT INTERFACED (09/23/2024 11:57 AM CDT) Creatinine POCT 0.83 0.30 - 1.30 mg/dL 09/23/2024 12:05 PM CDT [facility] eGFR 69(L) >=90 mL/min/1.7 3 m2 09/23/2024 12:05 PM CDT [facility] Blood BLOOD SPECIMEN / Unknown 09/23/2024 11:57 AM CDT 09/23/2024 12:05 PM CDT us Tonya Piedra MD LAB - POINT OF CARE ORDERAB LES Final Result [facility] [address] [place] [address], [facility] [phone] * HEMOGLOBIN A1C (02/05/2024 3:13 AM CDT) Hemoglobin A1c 5.6 <=5.6 % 02/05/2024 9:22 AM CDT [facility] Estimated Average Glucose 114 mg/dL 02/05/2024 9:22 AM CDT [facility] Comment: HbA1c Interpretation: Normal : < 5.7% Pre-diabetes: 5.7-6.4% Diabetes: Equal to or greater than 6.5% Test results diagnostic of diabetes should be repeated for confirmation. Treatment target values recommended by ADA and other clinical organizations should be used to evaluate metabolic control in patients. Reference: [place] Diabetes Association, Standards of Care in Diabetes -2020 In patients 70 years and older consider HbA1c target range of 7.0-7.5% (Reference: David Jesus et al. JAMDA. 2012) The Sebia assay for the measurement of HbA1c is a National Glycohemoglobin Standardization Program (NGSP) certified method. Blood BLOOD SPECIMEN / Unknown Venipuncture / Unknown 02/05/2024 3:13 AM CDT 02/05/2024 3:26 AM CDT Reza Guo PERFUME COMPOUNDER-DYE HOUSE WHEEL OPERATOR LAB - CHEMISTRY ORDERABLES Final Result [facility] [address] [place] [address], [facility] [phone] from Last 3 Months or Most Recently Relevant to Health Maintenance Insurance AETNA MEDICARE ADV [facility] Care Address: [facility] [id number] [place] [phone] Advance Directives * Full Code (Latest Code Status on File) Date Activated Date Inactivated Comments 02/03/2024 10:42 PM 02/22/2024 5:09 PM Care Teams Medicaid Plan Compliance Director Relationship Specialty Start Date End Date Renzo He MD [address] [place] [address] PCP - General Family Medicine 02/10/24
--- NOTE | 2024-11-24 12:31 | WPDPFTINT ---
PFT Procedure Performed PFT Procedure Performed Spirometry with Pre/Post Bronchodilator Plethysmography (Lung Vol) Diffusing Cap (DLCO) Flow Vol Loop PFT Interpretation This is a pulmonary function test with pre and post-bronchodilator spirometry, plethysmography and diffusing capacity. The test was performed and results interpreted in accordance with the 2019 and 2005 ATS/ERS Task Force guidelines respectively using the Global Lung Function Initiative-2012 reference equations. Patient demonstrated good effort and cooperation. Reproducibility criteria were met. The quality of the pre bronchodilator spirometry maneuver was Grade A and post bronchodilator spirometry maneuver was Grade A. Findings: Spirometry: The contour the inspiratory and expiratory flow tracing are normal. The pre bronchodilator FVC is 1.54 L, 70% predicted. The pre bronchodilator FEV1 is 1.11 L, 67% predicted. The pre bronchodilator FEV1: FVC ratio 72%. The post bronchodilator FVC is 1.57 L, representing a 2% increase. The post bronchodilator FEV1 is 1.13 L, representing a 2% increase. The post bronchodilator FEV1: FVC ratio 72%. Plethysmography: The total lung capacity is 3.34 L, 72% predicted. The functional residual capacity is 2.15 L, 81% predicted. The residual volume is 1.76 L, 76% predicted. Diffusing capacity: The diffusing capacity unadjusted for hemoglobin and carboxyhemoglobin is 10.7, 60% predicted. The diffusing capacity adjusted for alveolar volume is 4.44, 105% predicted. In comparison to previous pulmonary function testing on 05/26/2024, the post bronchodilator FVC is unchanged from 1.59 L to 1.57 L. The post bronchodilator FEV1 is unchanged from 1.19 L to 1.13 L. The total lung capacity is unchanged from 3.50 L to 3.34 L. The functional residual capacity is unchanged from 2.32 L to 2.15 L. The residual volume is unchanged from 2.02 L to 1.76 L. The diffusing capacity unadjusted for hemoglobin and carboxyhemoglobin is unchanged from 10.2 to 10.7. The diffusing capacity adjusted for alveolar volume is unchanged from 4.51 to 4.44. Impression: There is a moderate restrictive ventilatory abnormality with a normal FEV1. The spirometry is normal without evidence of an obstructive abnormality. There is no significant improvement after inhaling a single dose of albuterol. The diffusing capacity unadjusted for hemoglobin and carboxyhemoglobin is moderately decreased and normalizes when adjusted for alveolar volume. In comparison to previous pulmonary function testing on 05/26/2024, there has been no significant change in the FVC, FEV1, total lung capacity, functional residual capacity, residual volume or diffusing capacity. Clinical correlation is recommended.
== END 2024-11-24 09:01 | disposition home or self-care (01) ==
LOC: ANHLAB 09:01
PROVIDERS: PCP Family Medicine; Visit Provider Internal Medicine Pulmonary Disease
DX: J84.9 Interstitial pulmonary disease, unspecified (principal); R94.2 Abnormal results of pulmonary function studies
CPT/HCPCS: 94060; 94726; 94729

== ENCOUNTER 2025-04-14 07:53 | Outpatient (CLI) | payer MEDICARE, SELFPAY ==
--- OUTSIDE RECORDS SUMMARY | 2010-03-02 02:00 | XMS_ITS | Continuity of Care Document ---
Author Organization [facility] Address [address] [facility] [address] [place] [address] Phone Care Team Providers Care Heading Matcher And Assembler Name Role Phone Ana Mendez Unavailable Unavailable Procedures Procedure Date Eye Exam & Treatment Refraction Eye Exam & Treatment Eye Exam & Treatment Eye Exam & Treatment Eye Exam Established Pt Advance Directives Directive Yes / No Effective Date File Name No Information Encounters Encounter Description Practice Location Reason(s) For Visit Diagnoses Date Provider Providers Copied on Encounter [facility], [address] [place] [address] [address], [place], [place], [id number], tel:[phone] [facility] No Information Sep-2 4-201 0 Vanessa Perez. [address] , [address], [place], [place], [facility], . tel:[phone] [facility], [id number] [place] [address] [address], [place], [place], [id number], [place] tel:[phone] [facility] No Information Sep-1 8-200 9 Krishmarianela Gurmeet. [address], [place], [place], [facility], . tel:[phone] [facility], [address], [place], [place], [id number], tel:[phone] [facility] No Information Sep-1 7-200 8 Krishnasamy Gurmeet. [address] [facility] [address], [place], [address], [place]. tel:[phone] [facility], [address], [place], [place], [id number], [place] tel:[phone] [facility] No Information Sep- 7200 7 Cori Juan. [address], [address], [place], [place], [id number], [place]. tel:[phone] [facility], [address], [place], [place], [id number], [place] tel:[phone] [facility] No Information 2200 7 Vanessa Hutchinsn. [address], [place], [address], [place]. tel:[phone] Family History Family Member Type Diagnosis Age At Onset No Information Payers Payer name Insurance type Covered democrat ID Authoriza tion(s) No Information Social History Type Description Quantity Date Captured Comments Sex Female Smoking Status No Information Chief Complaint And Reason For Visit No Information Reason For Referral Reason For Referral No Information History Of Present Illness Encounter Date Complaint History Of Prese nt Illness No Information Functional Status Date Functional Assessmen t No Information Instructions Date Instruction Additional Infor mation No Information Assessments Type Assessment Date No Information Patient Care Teams Name Effective Dates (start - stop) Status Members No Information
[2025-04-14 08:56] LABS: Hematocrit 41.8 % (37.0-47.0); Hemoglobin 13.2 g/dL (12.0-15.0); Immature Granulocyte Percent A 0.3 % (0-0.5); Lymphocytes Absolute Auto 2.24 K/mm3 (0.9-3.2); Mean Corpuscular HGB Conc 31.6 g/dl (32-36); Mean Corpuscular Hemoglobin 31.2 pg (26-34); Mean Corpuscular Volume 98.8 fl (80-100); Nucleated Red Blood Cells Absolute Auto 0.000 K/mm3 (0.0-0.012); Nucleated Red Blood Cells Perc 0.0 % (0.0-0.2); Platelet Count Result 182 k/mm3 (150-375); Red Blood Count 4.23 M/mm3 (4.2-5.4); White Blood Count 7.6 K/mm3 (4.5-10.0)
[2025-04-14 09:09] LABS: Add Urine Microscopic? YES; Appearance Urine Clear (Clear); Glucose Urine UA Negative (Negative); Leukocyte Esterase Ur Trace LEU/UL (Negative); Nitrate Urine Negative (Negative); Non Pathogenic Casts 0-2; Specific Grav Ur 1.011 (1.001-1.035)
[2025-04-14 09:19] LABS: Alanine Aminotransferase 20 U/L (6-35); Albumin Level 4.5 g/dL (3.5-5.1); Alkaline Phosphatase 70 U/L (38-126); Anion Gap 7 mmol/L (4-12); Aspartate Amino Transferase 38 U/L (14-36); Bilirubin,Total 0.7 mg/dL (0.2-1.3); Blood Urea Nitrogen 19 mg/dL (7-17); Calcium 9.6 mg/dL (8.4-10.2); Carbon Dioxide 33 mmol/L (22-30); Chloride 97 mmol/L (98-107); Cholesterol 143 mg/dL (0-200); Estimated Glomerular Filt Rate > 60; Glucose 121 mg/dL (65-110); HDL Direct 70 mg/dL; Potassium 4.1 mmol/L (3.4-5.0); Sodium 137 mmol/L (137-145); Total Protein 7.7 g/dL (6.3-8.2); Triglycerides 70 mg/dL (<150)
[2025-04-14 09:43] LABS: MALB Creatinine Ratio < 12.6 mg/g (0-30)
[2025-04-14 09:56] LABS: Thyroid Stimulating Hormone 1.840 uIU/mL (0.465-4.680)
[2025-04-14 10:12] LABS: Hemoglobin A1C 6.3 % (<5.7)
[2025-04-14 10:20] LABS: Vitamin B12 > 1000.0 pg/mL (239-931)
--- OUTSIDE RECORDS SUMMARY | 2025-04-14 16:46 | XMS_ITS | Encounter Summary ---
Author Organization [facility] Address [address] [place] [address] Care Team Providers Care Central Service Supply Distributor Name Role Phone Renzo He MD Primary Care Provider [phone] Reason for Visit * Reason Onset Date Comments Medication Issue 06/24/2024 Encounter Details Date Type Department Care Team (Late st Contact Info) Description 06/24/2024 Telephone [facility] - Cardiology [address] [facility] [address] [place] [address] Enio Sheehan MD [address] [place] [address] Medication Issue Social History Tobacco Use Types [...] and heating? Not hard at all 02/19/2024 [facility] [place] of Occupat ional Health - Occupational Stress [...] place to sleep or slept in a nursing home (including now)? No 02/19/2024 Comments Unknown Sex and Gender Information Value Date Recorded Sex Assigned at Not on file Legal Sex Female 6:48 PM AIRCRAFT RIVETER Gender Identity Not on file Sexual Orientation [...] steady heart rate Patient Call Back number: [phone] RAFT RIVETER documented in this encounter Plan of Treatment Not on file documented as of this encounter Visit Diagnoses Not on filedocumented in this encounter Care Teams Central Service Supply Distributor Relationship Specialty Start Date End Date Renzo He MD [address] [place] [address] PCP - General Family Medicine 02/10/24 documented as of this encounter
--- OUTSIDE RECORDS SUMMARY | 2025-04-14 16:46 | XMS_ITS | Clinical Summary ---
Author Organization [facility] Address [address] [place] [address] Care Team Providers Care System Support Administrator Name Role Phone Renzo He MD Primary Care Provider [phone] Tonya Piedra MD Unavailable [phone] Allergies Active Allergy Reactions Criticality Noted Date Comments Cefuroxime Unknown 09/17/2024 Celecoxib Unknown 09/17/2024 Levofloxacin Unknown 09/17/2024 Succinylcholine Anaphylaxis High 02/03/2024 Medications atorvastatin (LIPITOR) 40 MG tablet Take 1 tablet (40 mg total) by mouth daily. Active carvedilol (COREG) 3.125 MG tablet Take 1 tablet (3.125 mg total) by mouth every 12 (twelve) hours. Active acetaminophen (TYLENOL) 500 MG tablet Take 1 tablet (500 mg total) by mouth every 6 (six) hours as needed. 02/22/2024 Active fluticasone propionate (FLONASE) 50 MCG/ACT nasal spray 2 sprays by Each Nostril route daily as needed. Active ipratropium (ATROVENT) 0.06 % nasal spray 2 sprays by Nasal route 2 (two) times daily. 06/29/2024 Active risedronate (ACTONEL) 35 MG tablet Take 1 tablet (35 mg total) by mouth every 7 days. 09/16/2024 Active cetirizine (ZYRTEC) 10 MG tablet Take 1 tablet (10 mg total) by mouth daily. Active calcium carb-cholecalcif frankie (CALTRATE 600+D) 600-20 MG-MCG tablet Take 1 tablet by mouth daily. Active Nutritional Supplements (VITAL HIGH PROTEIN OR) Take 1 tablet by mouth daily. Active losartan (COZAAR) 50 MG tablet Take 1 tablet (50 mg total) by mouth daily. 90 tablet 2 09/17/2024 Active ELIQUIS 2.5 MG tablet Take 1 tablet (2.5 mg total) by mouth 2 (two) times daily. 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 03/18/2025 10:00 AM CDT Office Visit [address] [address] Shaun Gray MD Atrial Fibrillation (6mo) 03/18/2025 Travel 03/14/[address] [facility], [address] [address] Shaun Gray MD Refill Request (ELIQUIS) from Last 3 Months Immunizations Immunization Administration [...] Sex Assigned at Female 06/26/2024 5:43 AM ACOUSTICAL INSTALLER Legal Sex Female 6:29 AM ACOUSTICAL INSTALLER Gender Identity Female 06/26/2024 5:47 AM ACOUSTICAL INSTALLER Sexual Orientation Straight 06/26/2024 5: 47 AM ACOUSTICAL INSTALLER Occupation Industry Job Start Date Job End Date Retired Not on file Not on file Not on file Last Filed Vital Signs Vital Sign Reading Time Taken Comments Blood Pressure 124/62 03/18/2025 9:49 AM CDT Pulse 67 03/18/2025 9:49 AM CDT Temperature 36.6 C (97.9 F) 10/13/2024 12:22 PM CDT Respiratory Rate 19 10/13/2024 5:00 PM CDT Oxygen Saturation 98% 03/18/2025 9:49 AM CDT Inhaled Oxygen Concentration - - Weight 59.8 kg (131 lb 14.4 oz) 03/18/2025 9:49 AM CDT Height 157.5 cm (5' 2) 03/18/2025 9:49 AM CDT Body Mass Index 24.12 03/18/2025 9:49 AM CDT Plan of Treatment Upcoming Encounters Date Type Department Care Team (Late st Contact Info) Description 09/16/2025 1:30 PM CDT Office Visit [facility] [address] Shaun Gray MD [facility] [address] [place] [address] Health Maintenance Due Date Last Done Comments Kidney Health Evaluation 1940 Diabetes: Retinopathy Eye Exam 12/14/1957 DTaP, Tdap and Td Vaccines ( 1 - Tdap) 12/14/1958 Pneumococcal Vaccine: 50+ Years (1 of 2 - PCV) 12/14/1958 Annual Medicare Wellness Visit 12/14/2004 Zoster Vaccines (2 of 3) 08/02/2008 06/07/2008 RSV Immunization or 60+ Years (1 - 1-dose 75+ series) 12/14/2014 Hemoglobin A1C 08/06/2024 02/05/2024 Lipid Panel 02/04/2025 02/05/2024 COVID-19 Vaccine (3 - 2024-2 6 season) 2025 08/10/2020, 07/11/2020 Influenza Adult (#1) 2025 03/10/2020, 03/16/2019, 04/24/2018 Hepatitis A Vaccines Aged Out No long er eligible based on patient's age to complete this topic Meningococcal B Vaccine Aged Out No l onger eligible based on patient's age to complete this topic Meningococcal Vaccine Aged Out No odell oleksandr eligible based on patient's age to complete this topic RSV Immunizations Under 20 Months Aged Out No longer eligible b ased on patient's age to complete this topic Insurance AETNA MEDICARE Care Teams System Support Administrator Relationship Specialty Start Date End Date Renzo He MD [address] [place] [address] PCP - General FAMILY PRACTICE 03/24/24 Tonya Piedra MD [address] [place] [address] SURGERY 06/26/24
--- OUTSIDE RECORDS SUMMARY | 2025-04-14 16:46 | XMS_ITS | Encounter Summary ---
Author Organization [facility] Address [address] [place] [address] Care Team Providers Care Hat Mender Name Role Phone Renzo He MD Primary Care Provider [phone] Tonya Piedra MD Unavailable [phone] Reason for Visit * Reason Onset Date Comments Results 04/14/2025 Encounter Details Date Type Department Care Team (Late st Contact Info) Description 04/14/2025 [employer] Message [facility] [address] Shaun Gray MD [address] [facility] [address] [place] [address] Test results. Social History Tobacco Use Types Packs/Day Years Used Date Smoking Tobacco: Never Passive Smoke Exposure: Never Smokeless Tobacco: Never Alcohol Use Standard Drinks/Week Comments Never 0 (1 standard drink = 0.6 oz pur e alcohol) Comments No Sex and Gender Information Value Date Recorded Sex Assigned at Female 06/26/2024 5:43 AM CLAIMS DIRECTOR Legal Sex Female 6:29 AM CLAIMS DIRECTOR Gender Identity Female 06/26/2024 5:47 AM CLAIMS DIRECTOR Sexual Orientation Straight 06/26/2024 5: 47 AM CLAIMS DIRECTOR Occupation Industry Job Start Date Job End Date Retired Not on file Not on file Not on file documented as of this encounter Progress Notes * Shital Hamilton RN - 04/14/2025 10:22 AM CST . MS DIRECTOR documented in this encounter Plan of Treatment Upcoming Encounters Date Type Department Care Team (Late st Contact Info) Description 09/16/2025 1:30 PM CDT Office Visit [facility] [address] Shaun Gray MD [address] [facility] [address] [place] [address] documented as of this encounter Visit Diagnoses Not on filedocumented in this encounter Care Teams Hat Mender Relationship Specialty Start Date End Date Renzo He MD [address] [place] [address] PCP - General FAMILY PRACTICE 03/24/24 Tonya Piedra MD [address] [place] [address] SURGERY 06/26/24 documented as of this encounter
--- OUTSIDE RECORDS SUMMARY | 2025-04-14 16:46 | XMS_ITS | Clinical Summary ---
Author Organization [facility] Address [address] [place] [address] Care Team Providers Care Appliance Servicer Name Role Phone Renzo He MD Primary Care Provider [phone] Source Comments [facility],non-owned Affiliates and Associated Physician Practices is amultiple site organization consisting of ambulatory clinics and hospital sitesin [place], [place], [place] and [place]. This disclosure is being madepursuant to the Care Everywhere program and may not contain all information available regarding this patient. Last updated 18.[facility] Allergies Active Allergy Reactions Criticality Noted Date [...] 50 MCG/ACT nasal sprayIndications:N maría Congestion,Rhinosi nusitis Minier 2 (two) sprays into each nostril once daily as needed (congestion, rhinosinusitis) Reasons: Inflammation of the Sinuses and the Nose, Stuffy Nose 16 g 1 02/22/20 24 Active Oxygen Oxygen with portability - continuous at 1L/min at rest and 2 L/min with activity via nasal cannula - Estimate length of need (number of months): 3 1 Each 02/22/20 24 Active Additional Information Patient taking differently: Oxygen with portability - continuous at 1L/min at rest and 2 L/min with activity via nasal cannula- Estimate length of need (number of months): 32 liter of O2 at night, Reported on 09/23/2024 apixaban (Eliquis) 2.5 MG tabletIndications: Atrial Fibrillation Take 1 (one) tablet by mouth 2 times daily Reasons: Atrial Fibrillation 180 tablet 3 03/11/20 24 Active atorvastatin (Lipitor) 40 MG tabletIndications: Hyperlipidemia, [...] Type 1 dissection of ascending aorta 02/03/2024 Overview (03/09/2025): IMO 03/09/2025 Intramural aortic hematoma 02/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 Not hard at all 02/19/2024 [facility] - Occupational Stress [...] place to sleep or slept in a halfway (including now)? No 02/19/2024 Comments Unknown Sex and Gender Information Value Date Recorded Sex Assigned at Not on file Legal Sex Female 6:48 PM OPTION TRADER Gender Identity Not on file Sexual Orientation [...] SCREENING 02/04/2024 DIABETES-FOOT EXAM WITH MONOFILAMENT 02/04/2024 DEPRESSION SCREENING 06/09/2024 MEDICARE AWV CALENDAR YEAR 2024 DIABETES-HGB A1C 08/06/2024 02/05/2024 COVID-19 VACCINE ( season) 2025 04/16/2023, 04/11/2022, 04/05/2021, Additional history exists INFLUENZA VACCINE (#1) 2025 , 04/11/2022, 02/14/2021, Additional history exists HEPATITIS B VACCINE Aged [...] this topic Medical Devices Implanted Type Area Electric Meter Installer Helper Device Identifier Shelf Expiration Date Model / Serial / Lot Graft Cv 10mm 30cm [facility] Polystr 2 Vlr - [id number] Implanted:Qty: 1 on 02/03/2024 by Tonya Piedra MD at [facility] N/A: Subclavian Maquet 09/06/2028 [id number] / [id number] Description: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 [employer] Cv 6x6in Thk1.65mm Ptfe Ptch Strl Implanted:Qty: 2 on 02/03/2024 by Tonya Piedra MD at [facility] N/A: Aorta [employer] 06/05/2028 [id number] / / [id number] Procedures Procedure Name Priority Date/Time Associated Diagnosis Comments HEMOGLOBIN A1C Routine 02/05/2024 3:13 AM CDT from Last 3 Months or Most Recently Relevant to Health Maintenance Results * HEMOGLOBIN A1C (02/05/2024 3:13 AM CDT) Hemoglobin A1c 5.6 <=5.6 % 02/05/2024 9:22 AM CDT [facility] Estimated Average Glucose 114 mg/dL 02/05/2024 9:22 AM CDT [facility] Comment: HbA1c Interpretation: Normal : < 5.7% Pre-diabetes: 5.7-6.4% Diabetes: Equal to or greater than 6.5% Test results diagnostic of diabetes should be repeated for confirmation. Treatment target values recommended by ADA and other clinical organizations should be used to evaluate metabolic control in patients. Reference: [place] Diabetes Association, Standards of Care in Diabetes -2020 In patients 70 years and older consider HbA1c target range of 7.0-7.5% (Reference: David Jesus et al. JAMDA. 2012) The Sebia assay for the measurement of HbA1c is a National Glycohemoglobin Standardization Program (NGSP) certified method. Blood BLOOD SPECIMEN / Unknown Venipuncture / Unknown 02/05/2024 3:13 AM CDT 02/05/2024 3:26 AM CDT Re[facility]ER[facility] - CHEMISTRY ORDERABLES Final Result [facility] [address] [address], [facility] [phone] from Last 3 Months or Most Recently Relevant to Health Maintenance Insurance [employer] MEDICARE ADV Advance Directives * Full Code (Latest Code Status on File) Date Activated Date Inactivated Comments 02/03/2024 10:42 PM 02/22/2024 5:09 PM Care Teams Appliance Servicer Relationship Specialty Start Date End Date Renzo He MD [address] [place] [address] PCP - General Family Medicine 02/10/24
== END 2025-04-14 07:54 | disposition home or self-care (01) ==
PROVIDERS: PCP Family Medicine; Visit Provider Family Medicine
DX: G43.009 Migraine without aura, not intractable, without status migrainosus (principal); E55.9 Vitamin D deficiency, unspecified; E11.9 Type 2 diabetes mellitus without complications; I10 Essential (primary) hypertension; M18.0 Bilateral primary osteoarthritis of first carpometacarpal joints; F41.1 Generalized anxiety disorder; G25.81 Restless legs syndrome; J84.9 Interstitial pulmonary disease, unspecified; Z79.899 Other long term (current) drug therapy
CPT/HCPCS: 36415; 80053; 80061; 81001; 82043; 82306; 82607; 83036; 84443; 85025

== ENCOUNTER 2025-05-24 08:29 | Outpatient (CLI) | payer MEDICARE, SELFPAY ==
--- NOTE | ~2025-05-24 | US_ITS ---
ULTRASOUND ABDOMEN LIMITED (RIGHT UPPER QUADRANT) Clinical History: K75.81 - Nonalcoholic steatohepatitis (CHEN) Comparison: CT 02/03/2024 Technique: Right upper quadrant sonography Findings: Liver: Nodular contour. Heterogeneous but echogenic. Normal echotexture. No intrahepatic biliary ductal dilatation. Normal hepatopedal flow main portal vein. 14 mm nearly anechoic focus with posterior acoustic enhancement left lobe consistent with cyst. Common Duct: Normal caliber. 3 mm. Gallbladder: Removed. Pancreas: Mostly obscured by bowel gas. IMPRESSION: 1. No acute findings. 2. Cirrhosis. Reviewed, dictated and finalized at location R. NSED GUIDE
== END 2025-05-24 08:30 | disposition home or self-care (01) ==
LOC: MICIMG 08:30
PROVIDERS: PCP Family Medicine; Visit Provider Nurse Practitioner Family
DX: K75.81 Nonalcoholic steatohepatitis (NASH) (principal); K74.60 Unspecified cirrhosis of liver
CPT/HCPCS: 76705